=== PATIENT | female | born 1935 | race Caucasian/White ===

== ENCOUNTER 2019-03-03 10:46 | Emergency (ER) | payer MEDICARE, OTHER ==
[~2019-03-03] VITALS: Ht 160 cm; Wt 82.1 kg
--- OUTSIDE RECORDS SUMMARY | 2019-03-03 10:51 | XMS REPORT ---
Author Author RASHEED MYERS [facility] Address Unknown Care Team Providers Care Installment Loan Collector Name Role Phone RASHEED MYERS Unavailable PROBLEMS Unknown Problems ALLERGIES No Known Allergies ENCOUNTERS Encounter Location Date Diagnosis [facility] [address] [facility] [id number] [place], [place] [id number] May, Dental examination Z01.20 IMMUNIZATIONS No Known Immunizations SOCIAL HISTORY Never Assessed REASON FOR VISIT LAURI PLAN OF CARE VITAL SIGNS Blood pressure systolic 159 mmHg 2017-06-16 Blood pressure diastolic 90 mmHg 2017-06-16 MEDICATIONS Unknown Medications RESULTS No Results PROCEDURES Procedure Date Ordered Result Body Site INTRAORL-PERIAPICAL 1 FILM [id number] Jun 16, 2017 BITEWING - SINGLE FILM Jun 16, 2017 INSTRUCTIONS MEDICATIONS ADMINISTERED No Known Medications
--- OUTSIDE RECORDS SUMMARY | 2019-03-03 10:51 | XMS REPORT ---
Author Author RIGO PARIKH Organization [facility] Address [address] [place] [address] Care Team Providers Care Call Center Support Representative Name Role Phone RIGO PARIKH Unavailable PROBLEMS Type Condition ICD9-CM Code UIV97-HV Code Onset Dates Condition Status SNOMED Code Problem Pulmonary fibrosis J84.10 Active 17900741 Problem COPD (chronic obstructive pulmonary disease) J44.9 Active 85468798 Problem Essential (primary) hypertension I10 Active 23024198 Problem Congestive heart failure I50.9 Active 66907544 Problem Rheumatoid arthritis M06.9 Active 27434374 Problem Atrial fibrillation I48.91 Active 43292709 Problem Hyperlipemia E78.5 Active 39722874 ALLERGIES No Information ENCOUNTERS Encounter Location Date Diagnosis [address] [address] December, [address] [address] Oct, COPD (chronic obstructive pulmonary disease) J44.9 [facility] [address] [facility] [id number] [address] Oct, [address] [address] Sep, Essential (primary) hypertension I10 ; Rheumatoid arthritis M06.9 ; Pulmonary fibrosis J84.10 ; Atrial fibrillation I48.91 ; COPD (chronic obstructive pulmonary disease) J44.9 ; Congestive heart failure I50.9 ; Hyperlipemia E78.5 ; Gastro-esophageal reflux disease without esophagitis K21.9 and 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 [address] Sep, Essential (primary) hypertension I10 [facility] [address] [facility] [id number] [place] [id number] May, Dental examination Z01.20 IMMUNIZATIONS No Known Immunizations SOCIAL HISTORY Never Assessed REASON FOR VISIT error PLAN OF CARE VITAL SIGNS MEDICATIONS Unknown Medications RESULTS No Results PROCEDURES No Known procedures INSTRUCTIONS MEDICATIONS ADMINISTERED No Known Medications MEDICAL (GENERAL) HISTORY Type Description Date Medical History Rheumatoid arthritis Medical History Pulmonary fibrosis Medical History Atrial fibrillation Medical History COPD (chronic obstructive pulmonary disease) Medical History Hypertension Medical History Hyperlipemia Medical History Chronic renal failure Medical History Congestive heart failure Medical History Sleep apnea Medical History Takotsubo cardiomyopathy Surgical History shoulder repair Surgical History mastectomy 2009 Hospitalization History CHF Hospitalization History COPD
--- OUTSIDE RECORDS SUMMARY | 2019-03-03 10:52 | XMS REPORT | Continuity of Care Document ---
Author Organization Unknown Address Unknown Allergies There is no data. Medications There is no data. Problems There is no data. Procedures There is no data. Results Test Result Range [facility] - 10/17/18 10:39 GLUCOSE 85 mg/dL 65-99 UREA NITROGEN (BUN) 39 mg/dL 7-25 CREATININE 1.38 mg/dL 0.60-0.88 eGFR NON-AFR. DOMINICAN 35 mL/min/1.73m2 > OR=60 eGFR 41 mL/min/1.73m2 > OR=60 BUN/CREATININE RATIO 28 (calc) 6-22 SODIUM 141 mmol/L 135-146 POTASSIUM 4.3 mmol/L 3.5-5.3 CHLORIDE 99 mmol/L 98-110 CARBON DIOXIDE 33 mmol/L 20-32 CALCIUM 9.7 mg/dL 8.6-10.4 PROTEIN, TOTAL 7.2 g/dL 6.1-8.1 ALBUMIN 3.7 g/dL 3.6-5.1 GLOBULIN 3.5 g/dL (calc) 1.9-3.7 ALBUMIN/GLOBULIN RATIO 1.1 (calc) 1.0-2.5 BILIRUBIN, TOTAL 0.4 mg/dL 0.2-1.2 ALKALINE PHOSPHATASE 49 U/L 33-130 AST 15 U/L 10-35 ALT 10 U/L 6-29 CBC - 10/17/18 10:39 WHITE BLOOD CELL COUNT 5.2 Thousand/uL 3.8-10.8 RED BLOOD CELL COUNT 3.24 Million/uL 3.80-5.10 HEMOGLOBIN 10.0 g/dL 11.7-15.5 HEMATOCRIT 31.0 % 35.0-45.0 MCV 95.7 fL 80.0-100.0 MCH 30.9 pg 27.0-33.0 MCHC 32.3 g/dL 32.0-36.0 RDW 12.5 % 11.0-15.0 PLATELET COUNT 209 Thousand/uL 140-400 MPV 10.2 fL 7.5-12.5 ABSOLUTE NEUTROPHILS 3115 cells/uL 1487-0493 ABSOLUTE LYMPHOCYTES 1373 cells/uL 850-3900 ABSOLUTE MONOCYTES 421 cells/uL 200-950 ABSOLUTE EOSINOPHILS 260 cells/uL 15-500 ABSOLUTE BASOPHILS 31 cells/uL 0-200 NEUTROPHILS 59.9 % NRG LYMPHOCYTES 26.4 % NRG MONOCYTES 8.1 % NRG EOSINOPHILS 5.0 % NRG BASOPHILS 0.6 % NRG LIPID PANEL - 01/16/19 10:45 CHOLESTEROL, TOTAL 160 mg/dL <200 HDL CHOLESTEROL 70 mg/dL >50 TRIGLYCERIDES 78 mg/dL <150 LDL-CHOLESTEROL 74 mg/dL (calc) NRG CHOL/HDLC RATIO 2.3 (calc) <5.0 NON HDL CHOLESTEROL 90 mg/dL (calc) <130 CMP - 01/16/19 10:45 GLUCOSE 95 mg/dL 65-99 UREA NITROGEN (BUN) 34 mg/dL 7-25 CREATININE 1.30 mg/dL 0.60-0.88 eGFR NON-AFR. DOMINICAN 38 mL/min/1.73m2 > OR=60 eGFR 44 mL/min/1.73m2 > OR=60 BUN/CREATININE RATIO 26 (calc) 6-22 SODIUM 137 mmol/L 135-146 POTASSIUM 4.5 mmol/L 3.5-5.3 CHLORIDE 99 mmol/L 98-110 CARBON DIOXIDE 32 mmol/L 20-32 CALCIUM 9.9 mg/dL 8.6-10.4 PROTEIN, TOTAL 6.9 g/dL 6.1-8.1 ALBUMIN 3.5 g/dL 3.6-5.1 GLOBULIN 3.4 g/dL (calc) 1.9-3.7 ALBUMIN/GLOBULIN RATIO 1.0 (calc) 1.0-2.5 BILIRUBIN, TOTAL 0.3 mg/dL 0.2-1.2 ALKALINE PHOSPHATASE 60 U/L 33-130 AST 14 U/L 10-35 ALT 8 U/L 6-29 CBC - 01/16/19 10:45 WHITE BLOOD CELL COUNT 6.5 Thousand/uL 3.8-10.8 RED BLOOD CELL COUNT 3.36 Million/uL 3.80-5.10 HEMOGLOBIN 10.0 g/dL 11.7-15.5 HEMATOCRIT 31.0 % 35.0-45.0 MCV 92.3 fL 80.0-100.0 MCH 29.8 pg 27.0-33.0 MCHC 32.3 g/dL 32.0-36.0 RDW 13.0 % 11.0-15.0 PLATELET COUNT 188 Thousand/uL 140-400 MPV 10.0 fL 7.5-12.5 ABSOLUTE NEUTROPHILS 4362 cells/uL 0815-2410 ABSOLUTE LYMPHOCYTES 1352 cells/uL 850-3900 ABSOLUTE MONOCYTES 514 cells/uL 200-950 ABSOLUTE EOSINOPHILS 241 cells/uL 15-500 ABSOLUTE BASOPHILS 33 cells/uL 0-200 NEUTROPHILS 67.1 % NRG LYMPHOCYTES 20.8 % NRG MONOCYTES 7.9 % NRG EOSINOPHILS 3.7 % NRG BASOPHILS 0.5 % NRG BNP - 01/16/19 10:45 B TYPE NATRIURETIC PEPTIDE (BNP) 344 pg/mL <100 Encounters ACCT No. Visit Date/Time Discharge Status Pt. Type Provider Facility Loc./Unit Complaint [id number] 01/16/2019 10:00:00 01/16/2019 23:59:59 [facility] Outpatient RIGO PARIKH [facility] [id number] 01/16/2019 10:00:00 Document Registration [id number] 10/17/2018 10:15:00 Document Registration
--- NOTE | 2019-03-03 11:18 | ED Respiratory ---
General Chief Complaint: Respiratory Problems Stated Complaint: SOA Source: patient Exam Limitations: no limitations History of Present Illness Date Seen by Provider: Mar 03, 2019 Time Seen by Provider: 11:14 Initial Comments Patient complains of increased dyspnea especially with exertion for the past 3-4 days. She denies chest pain. She denies fever. She has a nonproductive cough. She has a history of pulmonary fibrosis secondary to methotrexate use. Giovanna anne's saturation was 80 percent on her regular 3 L when she walked back to the room. She was placed on a oxygen mask at 4 L and saturations climbed to the lower 90s. Timing/Duration: constant Allergies and Home Medications Allergies Coded Allergies: Sulfa (Sulfonamide Antibiotics) (Unverified Allergy, Unknown, 09/08/06) amoxicillin (Verified Allergy, Unknown, rash, 03/03/19) azithromycin (Verified Allergy, Unknown, rash, 03/03/19) cephalexin (Verified Allergy, Unknown, rash, 03/03/19) clavulanic acid (Verified Allergy, Unknown, rash, 03/03/19) colchicine (Verified Allergy, Unknown, rash, 03/03/19) doxycycline (Verified Adverse Reaction, Unknown, diarrhea, 03/03/19) hydralazine (Verified Adverse Reaction, Unknown, headache, 03/03/19) Uncoded Allergies: CYSTEINE (Allergy, Unknown, itching, 03/03/19) Patient Home Medication List Home Medication List Reviewed: Yes Review of Systems Review of Systems Constitutional: No fever; malaise EENTM: no symptoms reported Respiratory: cough, dyspnea on exertion, short of breath Cardiovascular: no symptoms reported Gastrointestinal: no symptoms reported Musculoskeletal: joint pain Skin: no symptoms reported Hematologic/Lymphatic: No Symptoms Reported Immunological/Allergic: no symptoms reported All Other Systems Reviewed Negative Unless Noted: Yes Past Rhcgxif-Yvdmqi-Yufxho Hx Patient Social History Alcohol Use: Denies Use Physical Exam Vital Signs - First Documented 03/03/19 10:51 Temp 97.8 Pulse 72 Resp 22 B/P (MAP) 167/73 (104) Pulse Ox 90 O2 Delivery Nasal Cannula O2 Flow Rate 4.50 Capillary Refill : Height: '" Weight: lbs. oz. kg; BMI Method: General Appearance: WD/WN, no apparent distress Eyes: Bilateral Eye Normal Inspection HEENT: PERRL/EOMI, pharynx normal Neck: supple Respiratory: decreased breath sounds, crackles, rales Cardiovascular: regular rate, rhythm Gastrointestinal: normal bowel sounds, soft Extremities: normal inspection Neurologic/Psychiatric: alert, normal mood/affect Skin: normal color, warm/dry Focused Exam Lactate Level 03/03/19 11:34: Lactic Acid Level 0.56 Lactic Acid Level Laboratory Tests Test 03/03/19 11:34 Lactic Acid Level 0.56 MMOL/L (0.50-2.00) Progress/Results/Core Measures Suspected Sepsis SIRS Temperature: Pulse: Respiratory Rate: Laboratory Tests 03/03/19 11:03: White Blood Count 9.4 Blood Pressure / Mean: 03/03/19 11:34: Lactic Acid Level 0.56 Laboratory Tests 03/03/19 11:03: Creatinine 1.39H, Platelet Count 186, Total Bilirubin 0.6 Results/Orders Lab Results Laboratory Tests Test 03/03/19 11:03 03/03/19 11:30 03/03/19 11:34 Range/Units White Blood Count 9.4 4.3-11.0 10^3/uL Red Blood Count 3.02 L 4.35-5.85 10^6/uL Hemoglobin 9.1 L 11.5-16.0 G/DL Hematocrit 30 L 35-52 % Mean Corpuscular Volume 100 H 80-99 FL Mean Corpuscular Hemoglobin 30 25-34 PG Mean Corpuscular Hemoglobin Concent 30 L 32-36 G/DL Red Cell Distribution Width 15.1 H 10.0-14.5 % Platelet Count 186 130-400 10^3/uL Mean Platelet Volume 9.4 7.4-10.4 FL Neutrophils (%) (Auto) 82 H 42-75 % Lymphocytes (%) (Auto) 11 L 12-44 % Monocytes (%) (Auto) 7 0-12 % Eosinophils (%) (Auto) 0 0-10 % Basophils (%) (Auto) 0 0-10 % Neutrophils # (Auto) 7.7 1.8-7.8 X 10^3 Lymphocytes # (Auto) 1.0 1.0-4.0 X 10^3 Monocytes # (Auto) 0.6 0.0-1.0 X 10^3 Eosinophils # (Auto) 0.0 0.0-0.3 10^3/uL Basophils # (Auto) 0.0 0.0-0.1 10^3/uL Sodium Level 137 135-145 MMOL/L Potassium Level 5.5 H 3.6-5.0 MMOL/L Chloride Level 96 L 98-107 MMOL/L Carbon Dioxide Level 34 H 21-32 MMOL/L Anion Gap 7 5-14 MMOL/L Blood Urea Nitrogen 37 H 7-18 MG/DL Creatinine 1.39 H 0.60-1.30 MG/DL Estimat Glomerular Filtration Rate 36 BUN/Creatinine Ratio 27 Glucose Level 106 H 70-105 MG/DL Calcium Level 9.6 8.5-10.1 MG/DL Corrected Calcium 10.1 8.5-10.1 MG/DL Magnesium Level 2.2 1.8-2.4 MG/DL Total Bilirubin 0.6 0.1-1.0 MG/DL Aspartate Amino Transf (AST/SGOT) 183 H 5-34 U/L Alanine Aminotransferase (ALT/SGPT) 170 H 0-55 U/L Alkaline Phosphatase 170 H 40-136 U/L Troponin I < 0.30 <0.30 NG/ML Pro-B-Type Natriuretic Peptide 17448.0 H <75.0 PG/ML Total Protein 7.6 6.4-8.2 GM/DL Albumin 3.4 3.2-4.5 GM/DL Blood Gas Puncture Site LT RAD Blood Gas Patient Temperature 97.5 Arterial Blood pH 7.36 L 7.37-7.43 Arterial Blood Partial Pressure CO2 68 H 35-45 MMHG Arterial Blood Partial Pressure O2 136 H 79-93 MMHG Arterial Blood HCO3 38 H 23-27 MMOL/L Arterial Blood Total CO2 40.5 H 21.0-31.0 MMOL/L Arterial Blood Oxygen Saturation 99 94-100 % Arterial Blood Base Excess 10.4 H -2.5-2.5 MMOL/L Vitor Test YES-POS Blood Gas Ventilator Setting NO Blood Gas Inspired Oxygen 4 OXYMASK Lactic Acid Level 0.56 0.50-2.00 MMOL/L My Orders Orders - MICHAEL CARRASQUILLO MD Cbc With Automated Diff (03/03/19 11:08) Magnesium (03/03/19 11:08) Chest 1 View Ap/Pa Only (03/03/19 11:08) Ekg Tracing (03/03/19 11:08) Comprehensive Metabolic Panel (03/03/19 11:08) O2 (03/03/19 11:08) Monitor-Rhythm Ecg Trace Only (03/03/19 11:08) Ed Iv/Invasive Line Start (03/03/19 11:08) Troponin I (03/03/19 11:08) Probnp Fs (03/03/19 11:08) Lactic Acid Analyzer (03/03/19 11:24) Arterial Blood Gas (03/03/19 11:36) Blood Culture (03/03/19 12:04) Levofloxacin 750 Mg/150 Ml Iv (Levaquin (03/03/19 12:15) Furosemide Injection (Lasix Injection) (03/03/19 12:15) Nitroglycerin Ointment (Nitrobid Ointme (03/03/19 12:15) Methylprednisolone Sod Succ (Solu-Medrol (03/03/19 12:15) Blood Culture (03/03/19 12:46) Medications Given in ED Current Medications Medications Dose Ordered Sig/Mitul Route Start Time Stop Time Status Last Admin Dose Admin Furosemide 40 mg ONCE ONCE IVP 03/03/19 12:15 03/03/19 12:16 DC 03/03/19 12:44 40 MG Levofloxacin/ Dextrose 150 ml @ 100 mls/hr ONCE ONCE IV 03/03/19 12:15 03/03/19 13:44 DC 03/03/19 12:45 100 MLS/HR Methylprednisolone Sodium Succinate 62.5 mg ONCE ONCE IVP 03/03/19 12:15 03/03/19 12:16 DC 03/03/19 12:44 62.5 MG Nitroglycerin 1 inch ONCE ONCE TOP 03/03/19 12:15 03/03/19 12:16 DC 03/03/19 12:44 1 INCH Vital Signs/I&O 03/03/19 03/03/19 10:51 10:51 Temp 97.8 Pulse 72 Resp 22 B/P (MAP) 167/73 (104) Pulse Ox 90 90 O2 Delivery Nasal Cannula O2 Flow Rate 4.50 Capillary Refill : ECG Initial ECG Impression Date: Mar 03, 2019 Initial ECG Impression Time: 11:20 Initial ECG Rate: 62 Initial ECG Rhythm: Normal Sinus Initial ECG Intervals: Normal Initial ECG Impression: Nonspecific Changes Departure Impression Primary Impression: Pneumonia Additional Impressions: COPD (chronic obstructive pulmonary disease) CHF exacerbation Disposition: 02 XFER SHT-TRM HOSP Condition: Stable Transfer Time Spoke to Accepting y: 12:41 Transfer Progress Notes [facility] transfer line was contacted. Pertinent labs were faxed. Dr. David Madden accepted transfer at 1400 hours patient remained stable while at rest and on O2. Transfer Time: 14:10 Transfer Facility: [facility] Method of Transfer: EMS Departure-Patient Inst. Referrals: RIGO PARIKH MD (PCP/Family) Primary Care Physician MICHAEL CARRASQUILLO MD Mar 03, 2019 11:18
[2019-03-03 11:21] LABS: BASOPHILS % (AUTO) 0 % (0-10); EOSINOPHILS % (AUTO) 0 % (0-10); HEMATOCRIT 30 % (35-52); HEMOGLOBIN 9.1 G/DL (11.5-16.0); LYMPHOCYTES % (AUTO) 11 % (12-44); MEAN CORPUSCULAR HEMOGLOBIN 30 PG (25-34); MEAN CORPUSCULAR HGB CONC 30 G/DL (32-36); MEAN CORPUSCULAR VOLUME 100 FL (80-99); MEAN PLATELET VOLUME 9.4 FL (7.4-10.4); MONOCYTES # (AUTO) 0.6 X 10^3 (0.0-1.0); MONOCYTES % (AUTO) 7 % (0-12); NEUTROPHILS # (AUTO) 7.7 X 10^3 (1.8-7.8); NEUTROPHILS % (AUTO) 82 % (42-75); PLATELET COUNT 186 10^3/uL (130-400); RED CELL DISTRIBUTION WIDTH 15.1 % (10.0-14.5); WHITE BLOOD COUNT 9.4 10^3/uL (4.3-11.0)
[2019-03-03 11:41] LABS: POTASSIUM 5.5 MMOL/L (3.6-5.0)
[2019-03-03 11:41] LABS: ABG BASE EXCESS 10.4 MMOL/L (-2.5-2.5); ABG OXYGEN SATURATION 99 % (94-100); ABG PCO2 68 MMHG (35-45); ABG PH 7.36 (7.37-7.43); ABG PO2 136 MMHG (79-93); ABG TCO2 40.5 MMOL/L (21.0-31.0); ALLENS TEST YES-POS; INSPIRED O2 4 OXYMASK; PATIENT TEMP 97.5; VENTILATOR NO
[2019-03-03 11:42] LABS: ALBUMIN 3.4 GM/DL (3.2-4.5); BILIRUBIN,TOTAL 0.6 MG/DL (0.1-1.0); CALCIUM 9.6 MG/DL (8.5-10.1); CREATININE SERUM 1.39 MG/DL (0.60-1.30); MAGNESIUM 2.2 MG/DL (1.8-2.4); TOTAL PROTEIN 7.6 GM/DL (6.4-8.2)
--- NOTE | 2019-03-03 12:00 | Diagnostic Imaging Report ---
PATIENT HISTORY: Shortness of air. History of breast cancer and lumpectomy. TECHNIQUE: Frontal view of the chest. COMPARISON: None. FINDINGS: There is cardiomegaly with a biologics specialist device noted. There is extensive perihilar opacity bilaterally, which extends into the right upper lobe. There are patchy airspace opacities in the right lung base. There is aortic atherosclerosis. Postsurgical changes are seen at the right shoulder. IMPRESSION: 1. Extensive bilateral perihilar opacities extending into the right upper lobe, may be due to pneumonia, or possibly edema. There are patchy airspace opacities in the right lung base as well. Given the history of cancer, recommend followup to resolution or nonemergent CT to exclude underlying neoplasm. Dictated by: Dictated on workstation # [id number]
[2019-03-03] MEDS ORDERED: methylPREDNISolone 125 MG (Solu-MEDROL) VIAL IVP ONE (12:15)
[2019-03-03] MEDS ORDERED: FUROSEMIDE 40 MG/4 ML INJ (LASIX) IVP ONE (12:15)
[2019-03-03] MEDS ORDERED: LEVOFLOXACIN 750 MG/150 ML IV 150 ML IV ONE (12:15)
[2019-03-03] MEDS ORDERED: NITROGLYCERIN 2% OINT 1 GM UNIT DOSE PACKET TOP ONE (12:15)
--- NOTE | 2019-03-03 14:02 | NUR ---
Received call from [facility] at [facility] with the name of accepting Dr, Dr David Madden. States he will call back once a bed is assigned.
[2019-03-03 15:05] VITALS: BP 167/70
--- NOTE | 2019-03-03 16:15 | NUR ---
Patient transferred at this time to [facility] at this time via [facility].
== END 2019-03-03 16:10 | disposition short-term general hospital (02) ==
LOC: EDUNIT# 10:46 → ER FS 10:48
DX: J18.9 Pneumonia, unspecified organism (principal); J44.9 Chronic obstructive pulmonary disease, unspecified; I50.9 Heart failure, unspecified; Z99.81 Dependence on supplemental oxygen; Z88.2 Allergy status to sulfonamides; Z88.1 Allergy status to other antibiotic agents; Z88.8 Allergy status to other drugs, medicaments and biological substances
CPT/HCPCS: 36415; 71045; 80053; 82805; 83605; 83735; 83880; 84484; 85025; 87040; 93005; 93041; 96365; 96366; 96375; 99291

== ENCOUNTER 2019-07-22 06:04 | Emergency (ER) | payer MEDICARE, OTHER ==
[~2019-07-22] VITALS: Ht 160 cm; Wt 83.4 kg
[~2019-07-22 06:04] MED LIST: ACET-2267 PO; ALBU90AE IH; ALLO300T2 PO; ALLO300T80 PO; APIX5TAB PO; BENZ100C18 PO; BRIM5DRO OP; BRIM5DRO OU; CALC1TAB29 PO; CALCIUM CARBONATE PO; CARV6.25 PO; CARV6.252 PO; CEFD300C3 PO; CLON0.1T PO; DOXY100C2 PO; FLUT12AE4 IH; FURO-125 PO; FURO20TA4 PO; HYDR-3923 PO; HYDR50TA3 PO; IPRA3AMP31 NEB; LATA7.5D OP; LATA7.5D OU; LISI40TA PO; LORA10TA7 PO; LORA10TA76 PO; MELA5TAB14 PO; MELA5TAB21 PO; MULT-593 PO; OMG1KC PO; PRAV20TA PO; PRED10TA22 PO; PROM5SYR PO; TRAZ-222 PO
[2019-07-22] MEDS ORDERED: RT-ALBUTEROL/IPRATROPIUM 3 ML (DUONEB) VIAL INH ONE (06:30)
--- NOTE | 2019-07-22 06:33 | ED Respiratory ---
General Chief Complaint: Respiratory Problems Source: patient Exam Limitations: no limitations History of Present Illness Date Seen by Provider: Jul 22, 2019 Time Seen by Provider: 06:16 Initial Comments Patient resents to ER by EMS from home with chief complaint of continued loose cough shortness of breath weakness. She was seen by this provider approximately one week ago and was admitted for hypoxia acute on chronic respiratory failure secondary to methotrexate lung injury and pneumonia. She was discharged on Omnicef, a steroid taper which she is still on and follow-up appointments tomorrow at with pulmonology. She asked EMS to take her directly to emergency room because she did not want to miss her outpatient appointments and testing. She elected not to do pulmonary rehabilitation because she said she did not want to miss the outpatient testing she had scheduled by her flight controls engineer at . She denies any fever. She does have a productive cough. She has not used her breathing treatments today. EMS gave her one breathing treatment on the way over which she said did help. She wears oxygen at 2 L by nasal cannula at all times. EMS reports her oxygen sats were about 94% on 2 L when they arrived and went about 97% after breathing treatment. She has a history of heart failure and did receive IV fluids in the hospital. She is on Lasix. She's also been on a flu id restriction due to hyponatremia and fluid overload. She says she has not been urinating as much and thinks she's gained 2-4 pounds over the past week. She says she has not weighed herself today however. Echocardiogram by Dr. Bradford from 07/16/19. Wall thickness and cavity size mildly increased. Systolic function normal with an EF 55-65%. Grade 2 diastolic dysfunction. Thickened, sclerotic aortic valve. Severe tricuspid regurgitation. History of paroxysmal atrial fibrillation on oral anticoagulation. Rheumatoid arthritis, chronic anemia, hyponatremia, COPD, methotrexate toxicity of the lungs. Allergies and Home Medications Allergies Coded Allergies: Sulfa (Sulfonamide Antibiotics) (Unverified Allergy, Unknown, 09/08/06) amoxicillin (Verified Allergy, Unknown, rash, 03/03/19) azithromycin (Verified Allergy, Unknown, rash, 03/03/19) cephalexin (Verified Allergy, Unknown, rash, pt received Cefepime w/o issue, 07/18/19) clavulanic acid (Verified Allergy, Unknown, rash, 03/03/19) colchicine (Verified Allergy, Unknown, rash, 03/03/19) doxycycline (Verified Adverse Reaction, Unknown, diarrhea, 03/03/19) hydralazine (Verified Adverse Reaction, Unknown, headache, 03/03/19) Uncoded Allergies: CYSTEINE (Allergy, Unknown, itching, 03/03/19) Home Medications Acetaminophen 500 Mg Tablet, 1,000 MG PO Q6H PRN for PAIN-MILD (1-4), (Reported) Albuterol Sulfate 90 Mcg Aer.pow.ba, 2 PUFF IH Q6H, (Reported) Allopurinol 300 Mg Tablet, 150 MG PO HS, (Reported) TAKES 1/2 OF A 300MG TAB TO EQUAL 150MG Apixaban 5 Mg Tablet, 5 MG PO BID, (Reported) Benzonatate 100 Mg Capsule, 200 MG PO TID Prescribed by: BILLY SOL on 07/18/19 0944 Brimonidine Tartrate/Timolol 5 Ml Drops, 1 DROP OU BID, (Reported) Calcium Carbonate/Vitamin D3 1 Each Tablet, 1 EACH PO DAILY, (Reported) Carvedilol 6.25 Mg Tablet, 6.25 MG PO BID, (Reported) Cefdinir 300 Mg Capsule, 300 MG PO BID Prescribed by: BILLY SOL on 07/18/19 0944 Fluticasone/Salmeterol 12 Gm Hfa.aer.ad, 2 PUFF IH BID@08,20 Prescribed by: BILLY SOL on 07/18/19 0944 Furosemide 20 Mg Tablet, 20 MG PO DAILY, (Reported) Hydralazine HCl 25 Mg Tablet, 25 MG PO BID, (Reported) Ipratropium/Albuterol Sulfate 3 Ml Ampul.neb, 3 ML NEB Q8H, (Reported) Latanoprost/Pf 7.5 Ml Drops, 1 DROP OU HS, (Reported) ONE DROP BOTH EYES Lisinopril 40 Mg Tablet, 40 MG PO 1800, (Reported) Loratadine 10 Mg Tablet, 10 MG PO DAILY, (Reported) Melatonin 5 Mg Tab.ir.er, 10 MG PO HS, (Reported) TAKES 2 (5MG) TABS Multivitamin with Minerals 1 Each Tablet, 1 EACH PO DAILY, (Reported) Barnes 3 Polyunsat Fatty Acids 1,000 Mg Cap, 1,000 MG PO DAILY, (Reported) Pravastatin Sodium 20 Mg Tablet, 20 MG PO HS, (Reported) Prednisone 10 Mg Tab.ds.pk, 10 MG PO DAILY Take 4 tabs(60mg)daily,decrease by 1 tab(10MG)daily. Prescribed by: BILLY SOL on 07/18/19 0944 Promethazine HCl/Codeine 5 Ml Syrup, 5 ML PO Q6H PRN for COUGH, (Reported) PICKED UP 120ML ON 07-12-2019 Trazodone HCl 50 Mg Tablet, 25 MG PO HS PRN for INSOMNIA, (Reported) TAKES 1/2 OF A 50MG TAB TO EQUAL 25MG Patient Home Medication List Home Medication List Reviewed: Yes Review of Systems Review of Systems Constitutional: No chills, No diaphoresis, No fever; malaise, weakness EENTM: No hearing loss, No blurred vision Respiratory: see HPI, cough, dyspnea on exertion, phlegm, short of breath, wheezing Cardiovascular: No chest pain; edema (mild) Gastrointestinal: No abdominal pain, No constipation, No diarrhea Genitourinary: No discharge, No dysuria; incontinence (stress) Musculoskeletal: No back pain, No joint pain Skin: No pruritus, No rash Psychiatric/Neurological: Denies Headache, Denies Numbness, Denies Paresthesia All Other Systems Reviewed Negative Unless Noted: Yes Past Gaebhfe-Ijvatu-Arwcgn Hx Patient Social History Alcohol Use: Denies Use Recreational Drug Use: No Smoking Status: Never a Smoker 2nd Hand Smoke Exposure: No Recent Foreign Travel: Yes Recent Hopitalizations: No Immunizations Up To Date Date of Influenza Vaccine: May 22, 2019 Seasonal Allergies Seasonal Allergies: No Past Medical History Surgeries: Yes Breast, Orthopedic Respiratory: Yes COPD Cardiac: Yes Hypertension, Irregular Heartbeat Neurological: Yes (brain bleed) Genitourinary: No Renal Failure Gastrointestinal: No Rheumatoid Arthritis Endocrine: No HEENT: No Cancer: No Psychosocial: No Integumentary: No Physical Exam Vital Signs - First Documented 07/22/19 06:15 Temp 36.8 Pulse 77 Resp 24 B/P (MAP) 142/59 (86) Pulse Ox 93 O2 Delivery Nasal Cannula O2 Flow Rate 2.00 FiO2 93 Capillary Refill : Height: 5'3.00" Weight: 181lbs. oz. 82.199490wr; 31.32 BMI Method:Stated General Appearance: WD/WN, mild distress Eyes: Bilateral Eye Normal Inspection, Bilateral Eye PERRL, Bilateral Eye EOMI HEENT: PERRL/EOMI, normal ENT inspection, pharynx normal Neck: supple, normal inspection Respiratory: no respiratory distress (94% on baseline O2), no accessory muscle use ( of 2 L), crackles (mild bilateral left worse than right bases), wheezing (mild, expiratory) Cardiovascular: normal peripheral pulses, regular rate, rhythm, other (trace pedal edema bilateral lower extremities) Gastrointestinal: non tender, soft Extremities: non-tender, normal inspection, no calf tenderness, normal capillary refill Neurologic/Psychiatric: alert, normal mood/affect, oriented x 3 Skin: normal color, warm/dry Progress/Results/Core Measures Suspected Sepsis SIRS Temperature: Pulse: Respiratory Rate: Laboratory Tests 07/22/19 06:25: White Blood Count 11.1H Blood Pressure / Mean: Laboratory Tests 07/22/19 06:25: Creatinine 1.12, Platelet Count 255, Total Bilirubin 0.2 Results/Orders Lab Results Laboratory Tests Test 07/22/19 06:25 07/22/19 06:46 07/22/19 07:30 Range/Units White Blood Count 11.1 H 4.3-11.0 10^3/uL Red Blood Count 2.57 L 4.35-5.85 10^6/uL Hemoglobin 8.3 L 11.5-16.0 G/DL Hematocrit 27 L 35-52 % Mean Corpuscular Volume 107 H 80-99 FL Mean Corpuscular Hemoglobin 32 25-34 PG Mean Corpuscular Hemoglobin Concent 30 L 32-36 G/DL Red Cell Distribution Width 15.8 H 10.0-14.5 % Platelet Count 255 130-400 10^3/uL Mean Platelet Volume 8.8 7.4-10.4 FL Neutrophils (%) (Auto) 83 H 42-75 % Lymphocytes (%) (Auto) 7 L 12-44 % Monocytes (%) (Auto) 8 0-12 % Eosinophils (%) (Auto) 1 0-10 % Basophils (%) (Auto) 0 0-10 % Neutrophils # (Auto) 9.2 H 1.8-7.8 X 10^3 Lymphocytes # (Auto) 0.8 L 1.0-4.0 X 10^3 Monocytes # (Auto) 0.9 0.0-1.0 X 10^3 Eosinophils # (Auto) 0.1 0.0-0.3 10^3/uL Basophils # (Auto) 0.0 0.0-0.1 10^3/uL Neutrophils % (Manual) 84 % Lymphocytes % (Manual) 11 % Monocytes % (Manual) 3 % Reactive Lymphocytes 2 % Macrocytosis MODERATE Sodium Level 135 135-145 MMOL/L Potassium Level 5.1 H 3.6-5.0 MMOL/L Chloride Level 95 L 98-107 MMOL/L Carbon Dioxide Level 34 H 21-32 MMOL/L Anion Gap 6 5-14 MMOL/L Blood Urea Nitrogen 51 H 7-18 MG/DL Creatinine 1.12 0.60-1.30 MG/DL Estimat Glomerular Filtration Rate 46 BUN/Creatinine Ratio 46 Glucose Level 100 70-105 MG/DL Calcium Level 9.1 8.5-10.1 MG/DL Corrected Calcium 9.8 8.5-10.1 MG/DL Total Bilirubin 0.2 0.1-1.0 MG/DL Aspartate Amino Transf (AST/SGOT) 21 5-34 U/L Alanine Aminotransferase (ALT/SGPT) 20 0-55 U/L Alkaline Phosphatase 82 40-136 U/L Troponin I < 0.30 <0.30 NG/ML C-Reactive Protein 2.28 H <0.50 MG/DL Pro-B-Type Natriuretic Peptide 5980.0 H <75.0 PG/ML Total Protein 6.1 L 6.4-8.2 GM/DL Albumin 3.1 L 3.2-4.5 GM/DL Blood Gas Puncture Site RT WRIST Blood Gas Patient Temperature 36.8 Arterial Blood pH 7.35 L 7.37-7.43 Arterial Blood Partial Pressure CO2 77 *H 35-45 MMHG Arterial Blood Partial Pressure O2 315 H 79-93 MMHG Arterial Blood HCO3 43 *H 23-27 MMOL/L Arterial Blood Total CO2 44.9 H 21.0-31.0 MMOL/L Arterial Blood Oxygen Saturation 100 94-100 % Arterial Blood Base Excess 13.6 H -2.5-2.5 MMOL/L Vitor Test NEGATIVE Blood Gas Ventilator Setting NO Blood Gas Inspired Oxygen 2 Urine Color YELLOW Urine Clarity CLEAR Urine pH 6.0 5-9 Urine Specific [place] 1.010 L 1.016-1.022 Urine Protein TRACE NEGATIVE Urine Glucose (UA) NEGATIVE NEGATIVE Urine Ketones NEGATIVE NEGATIVE Urine Nitrite NEGATIVE NEGATIVE Urine Bilirubin NEGATIVE NEGATIVE Urine Urobilinogen 0.2 < = 1.0 MG/DL Urine Leukocyte Esterase NEGATIVE NEGATIVE Urine RBC (Auto) NEGATIVE NEGATIVE Urine RBC NONE /HPF Urine WBC NONE /HPF Urine Crystals PRESENT H /LPF Urine Amorphous Sediment FEW RADHA URATES H /LPF Urine Bacteria NONE /HPF Urine Casts NONE /LPF Urine Mucus NEGATIVE /LPF Urine Culture Indicated NO My Orders Orders - LORETTA LOWE Ed Iv/Invasive Line Start (07/22/19 06:22) Cbc With Automated Diff (07/22/19 06:22) Comprehensive Metabolic Panel (07/22/19 06:22) Arterial Blood Gas (07/22/19 06:22) Crp Fs (07/22/19 06:22) Probnp Fs (07/22/19 06:22) Troponin I Fs (07/22/19 06:22) Ekg Tracing (07/22/19 06:22) Continuous Ekg Monitoring (07/22/19 06:22) O2 (07/22/19 06:22) Chest 1 View Ap/Pa Only (07/22/19 06:22) Albuterol/Ipra Inhalation Soln (Duoneb I (07/22/19 06:30) Svn Small Volume Nebulizer (07/22/19 06:22) Ua Culture If Indicated (07/22/19 06:22) Manual Differential (07/22/19 06:25) Straight Cath For Spec.-Adult (07/22/19 07:29) Cpap (Set Up) (07/22/19 08:50) Methylprednisolone Sod Succ (Solu-Medrol (07/22/19 09:00) Furosemide Injection (Lasix Injection) (07/22/19 09:00) Medications Given in ED Current Medications Medications Dose Ordered Sig/Mitul Route Start Time Stop Time Status Last Admin Dose Admin Albuterol/ Ipratropium 3 ml ONCE ONCE INH 07/22/19 06:30 07/22/19 06:31 DC 07/22/19 06:40 3 ML Furosemide 40 mg ONCE ONCE IVP 07/22/19 09:00 07/22/19 09:01 DC 07/22/19 08:57 40 MG Methylprednisolone Sodium Succinate 125 mg ONCE ONCE IVP 07/22/19 09:00 07/22/19 09:01 DC 07/22/19 08:57 125 MG Vital Signs/I&O 07/22/19 07/22/19 07/22/19 07/22/19 06:15 06:15 06:48 08:53 Temp 36.8 Pulse 77 Resp 24 B/P (MAP) 142/59 (86) Pulse Ox 93 93 100 O2 Delivery Nasal Cannula Nasal Cannula Nasal Cannula O2 Flow Rate 2.00 2.00 40.00 FiO2 93 07/22/19 10:50 Temp 36.9 Pulse 60 Resp 21 B/P (MAP) 144/72 (86) Pulse Ox 100 O2 Delivery NIV CPAP O2 Flow Rate 4.00 Capillary Refill : Progress Note #1: Time: 06:37 Progress Note We discussed checking a BNP to make sure she was not returning to fluid overload and giving her another breathing treatments she still has some wheezing despite the DuoNeb given by EMS. She has crackles which could be from fluid overload versus just continuing pneumonia. Her SaO2 is okay. We'll check a ABG some labs BNP and CRP. She still on the prednisone and Omnicef. We have discussed that she may benefit from pulmonary rehabilitation to help her get her strength back and she was adamant that she did not want to do this because she wanted to meet her outpatient testing. We explained to her that outpatient testing for her lungs well important it will be released relevant if she is in acute distress. She is asked to be transferred to the emergency room at . We explained to her that we would provide adequate workup initially to find out what the best disposition for her would be and make recommendations based off of our lab, x-ray and reexamination after breathing treatment. She explains that her chief complaint is just feeling weak and having an ongoing cough. She could not give a reason why she does not want to pulmonary rehabilitation other that she doesn't want miss the tests that were set up for her tomorrow. She mentioned her urinary incontinence so we will check a urinalysis looking for infection. She is on beta blockers so she is unlikely to be tachycardic. Progress Note #2: Time: 08:39 Progress Note The patient is not willing to go to [facility]. She says she would prefer to go home. She has difficulty staying awake through our conversation likely owing to her CO2 narcosis. Based on her high normal potassium and BUNs of 5000 as well as a loose cough I would suspect that she's not using her Lasix or it is being effective. The patient relates that she has not been fastidious with wearing her CPAP for last couple days because she says she has not been comfortable with that so she has been using her oxygen at night. Spoke with her daughter Chelo and discussed her concerns with the patient's CO2 narcosis and that she would not likely do well if she went home despite this being the patient's wishes. After the daughter spoke with the patient and they've agreed she should go to the hospital but they would prefer her to go to [facility] where her flight controls engineer Dr. Titus is. Solu-Medrol 125 mg IV and Lasix 40 mg IV. Progress Note #3: Time: 09:07 Progress Note Patient is feeling comfortable on 7 cm water pressure CPAP. We will observe for short while. ECG Initial ECG Impression Date: Jul 22, 2019 Initial ECG Impression Time: 06:31 Initial ECG Rate: 80 Initial ECG Rhythm: Normal Sinus Initial ECG Intervals: Normal Initial ECG Impression: Normal, Nonspecific Changes Initial ECG Comparisson: Unchanged Comment Sinus rhythm without clinically relevant ST elevation or depression. Diagnostic Imaging Diagonstic Imaging: Xray Plain Films/CT/US/NM/MRI: chest (1v) Comments Unchanged appearance from 07/17/19. NAME: SHIRLEY HENNING Susi MED REC#: [id number] PT STATUS: REG ER : 1935 PHYSICIAN: LORETTA LOWE MD ADMIT DATE: 07/22/19/ER FS Draft POSDate of Exam:07/22/19 CHEST 1 VIEW AP/PA ONLY Impression: Cough. Study compared with exam most recently 07/17/2019 also 03/03/2019. Findings: Cardiomegaly and an abnormal mediastinal contour is unchanged, 5 lobe coarse interstitial opacities unchanged. No effusion or pneumothorax. Impression: No change from previous exams with likely chronic underlying interstitial disease. There is cardiomegaly and prominence of the mediastinal contours all unchanged. Patient underwent chest CT 07/15 which demonstrates some nonspecific mediastinal lymphadenopathy. Dictated on workstation # [id number] Dict: 07/22/19 0653 Trans: 07/22/19 0724 [facility] [id number] Interpreted by: MONISHA SEVERINO Electronically signed by: Reviewed: Reviewed by Me Departure Impression Primary Impression: COPD exacerbation Additional Impression: Acute exacerbation of CHF (congestive heart failure) Qualified Codes: I50.33 - Acute on chronic diastolic (congestive) heart failure Disposition: XFER SHT-TRM HOSP Condition: Stable Transfer Transfer Reason: Patient preference (Pt's Bark Skinner is at [facility].) Time Spoke to Accepting Phy: 09:53 Transfer Progress Notes 0845: Called [facility] triage nurse and gave report. They will call back with physician. Accepted to Dr Juliette Giraldo, [facility]. Transfer Time: 10:50 Transfer Facility: [facility], [place], [place] Method of Transfer: EMS ([place]) Departure-Patient Inst. Referrals: RIGO PARIKH MD (PCP/Family) Primary Care Physician LORETTA LOWE Jul 22, 2019 06:33 POS
[2019-07-22 06:59] LABS: ABG PCO2 77 MMHG (35-45); ABG PH 7.35 (7.37-7.43)
[2019-07-22 07:00] LABS: ABG BASE EXCESS 13.6 MMOL/L (-2.5-2.5); ABG OXYGEN SATURATION 100 % (94-100); ABG PO2 315 MMHG (79-93); ABG TCO2 44.9 MMOL/L (21.0-31.0); ALLENS TEST NEGATIVE; INSPIRED O2 2
[2019-07-22 07:01] LABS: HEMATOCRIT 27 % (35-52); HEMOGLOBIN 8.3 G/DL (11.5-16.0); MEAN CORPUSCULAR HEMOGLOBIN 32 PG (25-34); MEAN CORPUSCULAR HGB CONC 30 G/DL (32-36); MEAN CORPUSCULAR VOLUME 107 FL (80-99); WHITE BLOOD COUNT 11.1 10^3/uL (4.3-11.0)
[2019-07-22 07:01] LABS: PATIENT TEMP 36.8; VENTILATOR NO
[2019-07-22 07:02] LABS: BASOPHILS % (AUTO) 0 % (0-10); EOSINOPHILS # (AUTO) 0.1 10^3/uL (0.0-0.3); EOSINOPHILS % (AUTO) 1 % (0-10); LYMPHOCYTES # (AUTO) 0.8 X 10^3 (1.0-4.0); LYMPHOCYTES % (AUTO) 7 % (12-44); MEAN PLATELET VOLUME 8.8 FL (7.4-10.4); MONOCYTES # (AUTO) 0.9 X 10^3 (0.0-1.0); MONOCYTES % (AUTO) 8 % (0-12); NEUTROPHILS # (AUTO) 9.2 X 10^3 (1.8-7.8); NEUTROPHILS % (AUTO) 83 % (42-75); PLATELET COUNT 255 10^3/uL (130-400); RED CELL DISTRIBUTION WIDTH 15.8 % (10.0-14.5)
[2019-07-22 07:09] LABS: LYMPHOCYTES % (MANUAL) 11 %; MONOCYTES % (MANUAL) 3 %; NEUTROPHILS % (MANUAL) 84 %; REACTIVE LYMPHOCYTES 2 %
--- NOTE | 2019-07-22 07:25 | Diagnostic Imaging Report ---
Impression: Cough. Study compared with exam most recently 07/17/2019 also 03/03/2019. Findings: Cardiomegaly and an abnormal mediastinal contour is unchanged, 5 lobe coarse interstitial opacities unchanged. No effusion or pneumothorax. Impression: No change from previous exams with likely chronic underlying interstitial disease. There is cardiomegaly and prominence of the mediastinal contours all unchanged. Patient underwent chest CT 07/15 which demonstrates some nonspecific mediastinal lymphadenopathy. Dictated by: Dictated on workstation # [id number]
[2019-07-22 07:30] LABS: ALANINE AMINOTRANSFERASE 20 U/L (0-55); ALBUMIN 3.1 GM/DL (3.2-4.5); ALKALINE PHOSPHATASE 82 U/L (40-136); BILIRUBIN,TOTAL 0.2 MG/DL (0.1-1.0); BUN/CREATININE RATIO 46; CALCIUM 9.1 MG/DL (8.5-10.1); CARBON DIOXIDE 34 MMOL/L (21-32); CHLORIDE 95 MMOL/L (98-107); CREATININE SERUM 1.12 MG/DL (0.60-1.30); GFR ESTIMATED 46; GLUCOSE 100 MG/DL (70-105); POTASSIUM 5.1 MMOL/L (3.6-5.0); SODIUM 135 MMOL/L (135-145); TOTAL PROTEIN 6.1 GM/DL (6.4-8.2)
[2019-07-22 07:52] LABS: BILIRUBIN,URINE NEGATIVE (NEGATIVE); CLARITY,URINE CLEAR; COLOR,URINE YELLOW; GLUCOSE, URINE (UA) NEGATIVE (NEGATIVE); KETONES,URINE NEGATIVE (NEGATIVE); LEUKOCYTE ESTERASE ,URINE NEGATIVE (NEGATIVE); NITRITE,URINE NEGATIVE (NEGATIVE); PROTEIN,URINE TRACE (NEGATIVE)
[2019-07-22 07:53] LABS: AMORPHOUS SEDIMENT,UR FEW AMOR URATES /LPF
[2019-07-22] MEDS ORDERED: methylPREDNISolone 125 MG (Solu-MEDROL) VIAL IVP ONE (09:00)
[2019-07-22] MEDS ORDERED: FUROSEMIDE 40 MG/4 ML INJ (LASIX) IVP ONE (09:00)
[2019-07-22 10:50] VITALS: BP 144/72
--- OUTSIDE RECORDS SUMMARY | 2019-08-16 06:06 | XMS REPORT | Continuity of Care Document ---
Author Organization Unknown Address Unknown Phone Unavailable Allergies Active Description Code Type Severity Reaction Onset Reported/Identified Relationship to Patient Clinical Status Yes Sulfa (Sulfonamide Antibiotics) [id number] Drug Allergy Unknown N/A 007 Yes amoxicillin [id number] Drug Aller gy Unknown rash 03/03/2019 Yes azithromycin [id number] Drug Allergy Unknown rash 03/03/2019 Yes cephalexin [id number] Drug Allerg y Unknown rash 03/03/2019 Yes clavulanic acid [id number] D rug Allergy Unknown rash 03/03/2019 Yes colchicine [id number] Drug Allerg y Unknown rash 03/03/2019 Yes CYSTEINE CYSTEINE Un known itching 03/03/2019 Yes doxycycline [id number] Drug Aller gy Unknown diarrhea 03/03/2019 Yes hydralazine [id number] Drug Aller gy Unknown headache 03/03/2019 Yes cephalexin [id number] Drug Allerg y Unknown rash, pt receiv 07/18/2019 Medications There is no data. Problems Date Dx Coded Attending Type Code Diagnosis Diagnosed By 03/03/2019 MICHAEL CARRASQUILLO MD, Ot I50. 9 HEART FAILURE, UNSPECIFIED 03/03/2019 MICHAEL CARRASQUILLO MD, Ot J18. 9 PNEUMONIA, UNSPECIFIED ORGANISM 03/03/2019 MICHAEL CARRASQUILLO MD, Ot J44. 9 CHRONIC OBSTRUCTIVE PULMONARY DISEASE, U 03/03/2019 MICHAEL CARRASQUILLO MD Ot R06. 00 DYSPNEA, UNSPECIFIED 03/03/2019 MICHAEL CARRASQUILLO MD, Ot Z88. 1 ALLERGY STATUS TO OTHER ANTIBIOTIC AGENT 03/03/2019 MICHAEL CARRASQUILLO MD, Ot Z88. 2 ALLERGY STATUS TO SULFONAMIDES STATUS 03/03/2019 MICHAEL CARRASQUILLO MD, Ot Z88. 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 9 HEART FAILURE, UNSPECIFIED 03/08/2019 NEIDA MD, MICHAEL A Ot J18. 9 PNEUMONIA, UNSPECIFIED ORGANISM 03/08/2019 MICHAEL CARRASQUILLO MD Ot J44. 9 CHRONIC OBSTRUCTIVE PULMONARY DISEASE, U 03/08/2019 MICHAEL CARRASQUILLO MD Ot R06. 00 DYSPNEA, UNSPECIFIED 03/08/2019 MICHAEL CARRASQUILLO MD, Ot Z88. 1 ALLERGY STATUS TO OTHER ANTIBIOTIC AGENT 03/08/2019 MICHAEL CARRASQUILLO MD Ot Z88. 2 ALLERGY STATUS TO SULFONAMIDES STATUS 03/08/2019 MICHAEL CARRASQUILLO MD Ot Z88. 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 07/18/2019 SWETA MANCILLA BILLY Ot D64.9 ANEMIA, UNSPECIFIED 07/18/2019 SWEAT MANCILLA BILLY Ot E78.5 HYPERLIPIDEMIA, UNSPECIFIED 07/18/2019 SWETA MANCILLA BILLY Ot E87.1 HYPO-OSMOLALITY AND HYPONATREMIA 07/18/2019 SWETA MANCILLA BILLY Ot F32.9 MAJOR DEPRESSIVE DISORDER, SINGLE EPISOD 07/18/2019 SWETA MANCILLA BILLY Ot I11.0 HYPERTENSIVE HEART DISEASE WITH HEART FA 07/18/2019 SWETA MANCILLA BILLY Ot I48.0 PAROXYSMAL ATRIAL FIBRILLATION 07/18/2019 SWETA MANCILLA BILLY Ot I50.32 CHRONIC DIASTOLIC (CONGESTIVE) HEART YAMILEX 07/18/2019 SWETA MANCILLA BILLY Ot J18.1 LOBAR PNEUMONIA, UNSPECIFIED ORGANISM 07/18/2019 SWETA MANCILLA BILLY Ot J44.0 CHR OBSTRUCTIVE PULMON DISEASE WITH (ACU 07/18/2019 SWETA MANCILLA BILLY Ot J44.1 CHRONIC OBSTRUCTIVE PULMONARY DISEASE W 07/18/2019 SWETA MANCILLA BILLY Ot J96.00 ACUTE RESPIRATORY FAILURE, UNSP W HYPOXI 07/18/2019 SWETA MANCILLA BILLY Ot 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 07/18/2019 SWETA MANCILLA BILLY Ot 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 07/18/2019 SWETA MANCILLA BILLY Ot M06.9 RHEUMATOID ARTHRITIS, UNSPECIFIED 07/18/2019 SWETA MANCILLA BILLY Ot N28.9 DISORDER OF KIDNEY AND URETER, UNSPECIFI 07/18/2019 SWETA MANCILLA BILLY Ot T50.2X 5A ADVRS EFF OF [facility], [place]-ANHYDR INHIBTR, BENZO 07/18/2019 SWETA MANCILLA BILLY Ot Z79.01 INTERMEDIATE (CURRENT) USE OF ANTICOAGULANT 07/18/2019 SWETA MANCILLA BILLY Ot Z79.51 INTERMEDIATE (CURRENT) USE OF INHALED STERO 07/18/2019 SWETA MANCILLA BILLY Ot 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 07/18/2019 SWETA MANCILLA BILLY Ot Z99.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 07/18/2019 SWETA MANCILLA BILLY Ot D64.9 ANEMIA, UNSPECIFIED 07/18/2019 SWETA MANCILLA BILLY Ot E78.5 HYPERLIPIDEMIA, UNSPECIFIED 07/18/2019 SWETA MANCILLA BILLY Ot E87.1 HYPO-OSMOLALITY AND HYPONATREMIA 07/18/2019 SWETA MANCILLA BILLY Ot F32.9 MAJOR DEPRESSIVE DISORDER, SINGLE EPISOD 07/18/2019 SWETA MANCILLA BILLY Ot I11.0 HYPERTENSIVE HEART DISEASE WITH HEART FA 07/18/2019 SWETA MANCILLA BILLY Ot I48.0 PAROXYSMAL ATRIAL FIBRILLATION 07/18/2019 SWETA MANCILLA BILLY Ot I50.32 CHRONIC DIASTOLIC (CONGESTIVE) HEART YAMILEX 07/18/2019 SWETA MANCILLA BILLY Ot J18.1 LOBAR PNEUMONIA, UNSPECIFIED ORGANISM 07/18/2019 SWETA MANCILLA BILLY Ot J44.0 CHR OBSTRUCTIVE PULMON DISEASE WITH (ACU 07/18/2019 SWETA MANCILLA BILLY Ot J44.1 CHRONIC OBSTRUCTIVE PULMONARY DISEASE W 07/18/2019 SWETA MANCILLA BILLY Ot J96.00 ACUTE RESPIRATORY FAILURE, UNSP W HYPOXI 07/18/2019 SWEAT MANCILLA BILLY Ot 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 07/18/2019 SWETA MANCILLA BILLY Ot 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 07/18/2019 SWETA MANCILLA BILLY Ot J96.21 ACUTE AND CHRONIC RESPIRATORY FAILURE [place] 07/18/2019 SWETA MANCILLA BILLY Ot J96.22 ACUTE AND CHRONIC RESPIRATORY FAILURE [place] 07/18/2019 SWETA MANCILLA BILLY Ot M06.9 RHEUMATOID ARTHRITIS, UNSPECIFIED 07/18/2019 SWETA MANCILLA BILLY Ot N28.9 DISORDER OF KIDNEY AND URETER, UNSPECIFI 07/18/2019 SWETA MANCILLA BILLY Ot T45.1X 5A ADVERSE EFFECT OF ANTINEOPLASTIC AND IMM 07/18/2019 BILLY SOL DO Ot T50.2X 5A ADVRS EFF OF [facility]-ANHYDR INHIBTR, BENZO 07/18/2019 BILLY SOL DO Ot Z79.01 INTERMEDIATE (CURRENT) USE OF ANTICOAGULANT 07/18/2019 BILLY SOL DO Ot 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 0 HYPERTENSIVE HEART DISEASE WITH HEART FA 07/27/2019 LORETTA LOWE MD Ot I50. 9 HEART FAILURE, UNSPECIFIED 07/27/2019 OLRETTA LOWE MD Ot J44. 1 CHRONIC OBSTRUCTIVE PULMONARY DISEASE W 07/27/2019 LORETTA LOWE MD Ot M06. 9 RHEUMATOID ARTHRITIS, UNSPECIFIED 07/27/2019 LORETTA LOWE MD Ot R05 COUGH 07/27/2019 LORETTA LOWE MD Ot Z79. 01 INTERMEDIATE (CURRENT) USE OF ANTICOAGULANT 07/27/2019 LORETTA LOWE MD Ot Z79. 51 MOBILE LAB TECHNICIAN (CURRENT) USE OF INHALED STERO 07/27/2019 LORETTA LOWE MD Ot Z88. 0 ALLERGY STATUS TO PENICILLIN 07/27/2019 LORETTA LOWE MD Ot Z88. 1 ALLERGY STATUS TO OTHER ANTIBIOTIC AGENT 07/27/2019 LORETTA LOWE MD Ot Z88. 2 ALLERGY STATUS TO SULFONAMIDES STATUS 07/27/2019 LORETTA LOWE MD Ot Z99. 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 07/31/2019 LORETTA LOWE MD Ot I11. 0 HYPERTENSIVE HEART DISEASE WITH HEART FA 07/31/2019 LORETTA LOWE MD Ot I50. 9 HEART FAILURE, UNSPECIFIED 07/31/2019 LORETTA LOWE MD Ot J44. 1 CHRONIC OBSTRUCTIVE PULMONARY DISEASE W 07/31/2019 LORETTA LOWE MD Ot M06. 9 RHEUMATOID ARTHRITIS, UNSPECIFIED 07/31/2019 LORETTA LOWE MD Ot R05 COUGH 07/31/2019 LORETTA LOWE MD Ot Z79. 01 MOBILE LAB TECHNICIAN (CURRENT) USE OF ANTICOAGULANT 07/31/2019 LORETTA LOWE MD Ot Z79. 51 INTERMEDIATE (CURRENT) USE OF INHALED STERO 07/31/2019 LORETTA LOWE MD, Ot Z88. 0 ALLERGY STATUS TO PENICILLIN 07/31/2019 LORETTA LOWE MD, Ot Z88. 1 ALLERGY STATUS TO OTHER ANTIBIOTIC AGENT 07/31/2019 LORETTA LOWE MD, Ot Z88. 2 ALLERGY STATUS TO SULFONAMIDES STATUS 07/31/2019 LORETTA LOWE MD, Ot Z99. 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 Procedures There is no data. Results Test Result Range CMP - 10/17/18 10:39 GLUCOSE 85 mg/dL 65-99 UREA NITROGEN (BUN) 39 mg/dL 7-25 CREATININE 1.38 mg/dL 0.60-0.88 eGFR NON-AFR. HAITIAN 35 mL/min/1.73m2 > OR = 60 eGFR 41 mL/min/1.73m2 > OR = 60 BUN/CREATININE RATIO 28 (calc) 6-22 SODIUM 141 mmol/L 135-146 POTASSIUM 4.3 mmol/L 3.5-5.3 CHLORIDE 99 mmol/L 98-110 CARBON DIOXIDE 33 mmol/L 20-32 CALCIUM 9.7 mg/dL 8.6-10.4 PROTEIN, TOTAL 7.2 g/dL 6.1-8.1 ALBUMIN 3.7 g/dL 3.6-5.1 GLOBULIN 3.5 g/dL (calc) 1.9-3.7 ALBUMIN/GLOBULIN RATIO 1.1 (calc) 1.0-2. 5 BILIRUBIN, TOTAL 0.4 mg/dL 0.2-1.2 ALKALINE PHOSPHATASE 49 U/L 33-130 AST 15 U/L 10-35 ALT 10 U/L 6-29 CBC - 10/17/18 10:39 WHITE BLOOD CELL COUNT 5.2 Thousand/uL 3 .8-10.8 RED BLOOD CELL COUNT 3.24 Million/uL 3.8 0-5.10 HEMOGLOBIN 10.0 g/dL 11.7-15.5 HEMATOCRIT 31.0 % 35.0-45.0 MCV 95.7 fL 80.0-100.0 MCH 30.9 pg 27.0-33.0 MCHC 32.3 g/dL 32.0-36.0 RDW 12.5 % 11.0-15.0 PLATELET COUNT 209 Thousand/uL 140-400 MPV 10.2 fL 7.5-12.5 ABSOLUTE NEUTROPHILS 3115 cells/uL 1500- 7800 ABSOLUTE LYMPHOCYTES 1373 cells/uL 850-3 900 ABSOLUTE MONOCYTES 421 cells/uL 200-950 ABSOLUTE EOSINOPHILS [...] 7-25 CREATININE 1.30 mg/dL 0.60-0.88 eGFR NON-AFR. HAITIAN 38 mL/min/1.73m2 > OR = 60 eGFR 44 mL/min/1.73m2 > OR = 60 BUN/CREATININE RATIO 26 (calc) 6-22 SODIUM 137 mmol/L 135-146 POTASSIUM 4.5 mmol/L 3.5-5.3 CHLORIDE 99 mmol/L 98-110 CARBON DIOXIDE 32 mmol/L 20-32 CALCIUM 9.9 mg/dL 8.6-10.4 PROTEIN, TOTAL 6.9 g/dL 6.1-8.1 ALBUMIN 3.5 g/dL 3.6-5.1 GLOBULIN 3.4 g/dL (calc) 1.9-3.7 ALBUMIN/GLOBULIN RATIO 1.0 (calc) 1.0-2. 5 BILIRUBIN, TOTAL 0.3 mg/dL 0.2-1.2 ALKALINE PHOSPHATASE 60 U/L 33-130 AST 14 U/L 10-35 ALT 8 U/L 6-29 CBC - 01/16/19 10:45 WHITE BLOOD CELL COUNT 6.5 Thousand/uL 3 .8-10.8 RED BLOOD CELL COUNT 3.36 Million/uL 3.8 0-5.10 HEMOGLOBIN 10.0 g/dL 11.7-15.5 HEMATOCRIT 31.0 % 35.0-45.0 MCV 92.3 fL 80.0-100.0 MCH 29.8 pg 27.0-33.0 MCHC 32.3 g/dL 32.0-36.0 RDW 13.0 % 11.0-15.0 PLATELET COUNT 188 Thousand/uL 140-400 MPV 10.0 fL 7.5-12.5 ABSOLUTE NEUTROPHILS 4362 cells/uL 1500- 7800 ABSOLUTE LYMPHOCYTES 1352 cells/uL 850-3 900 ABSOLUTE MONOCYTES 514 cells/uL 200-950 ABSOLUTE EOSINOPHILS 241 cells/uL 15-500 ABSOLUTE BASOPHILS 33 cells/uL 0-200 NEUTROPHILS 67.1 % NRG LYMPHOCYTES 20.8 % NRG MONOCYTES 7.9 % NRG EOSINOPHILS 3.7 % NRG BASOPHILS 0.5 % NRG BNP - 01/16/19 10:45 B TYPE NATRIURETIC PEPTIDE (BNP) 344 pg/mL <100 Complete blood count (CBC) with automate d white blood cell (WBC) differential - 03/03/19 11:03 Blood leukocytes automated count (number/volume) 9.4 10*3/uL 4.3-11.0 Blood erythrocytes automated count (number/volume) 3.02 10*6/uL 4.35-5.85 Venous blood hemoglobin measurement (mass/volume) 9.1 g/dL 11.5-16.0 Blood hematocrit (volume fraction) 30 % 35-52 Automated erythrocyte mean corpuscular volume 100 [foz_us] 80-99 Automated erythrocyte mean corpuscular h emoglobin (mass per erythrocyte) 30 pg 25-34 Automated erythrocyte mean corpuscular h emoglobin concentration measurement (mass/volume) 30 g/dL 32-36 Automated erythrocyte distribution width ratio 15. 1 % 10.0- 14.5 Automated blood platelet count (count/volume) 186 10*3/uL 130-400 Automated blood platelet mean volume measurement 9.4 [foz_us] 7.4-10.4 Automated blood neutrophils/100 leukocytes 82 % 42-75 Automated blood lymphocytes/100 leukocytes 11 % 12-44 Blood monocytes/100 leukocytes 7 % 0-12 Automated blood eosinophils/100 leukocytes 0 % 0-10 Automated blood basophils/100 leukocytes 0 % 0-10 Blood neutrophils automated count (number/volume) 7.7 10*3 1.8-7.8 Blood lymphocytes automated count (number/volume) 1.0 10*3 1.0-4.0 Blood monocytes automated count (number/volume) 0. 6 10*3 0.0-1.0 Automated eosinophil count 0.0 10*3/uL 0 .0-0.3 Automated blood basophil count (count/volume) 0.0 10*3/uL 0.0-0.1 Serum or plasma troponin i.cardiac measu rement (mass/volume) - 03/03/19 11:03 Serum or plasma troponin i.cardiac measurement (mass/v olume) < ng/mL <0.30 Comprehensive metabolic panel - 03/03/19 11:03 Serum or plasma sodium measurement (moles/volume) 137 mmol/L 135-145 Serum or plasma potassium measurement (moles/volume) 5.5 mmol/L 3.6-5.0 Serum or plasma chloride measurement (moles/volume) 96 mmol/L 98-107 Carbon dioxide 34 mmol/L 21-32 Serum or plasma anion gap determination (moles/volume) 7 mmol/L 5-14 Serum or plasma urea nitrogen measurement (mass/volume ) 37 mg/dL 7-18 Serum or plasma creatinine measurement (mass/volume) 1.39 mg/dL 0.60-1.30 Serum or plasma urea nitrogen/creatinine mass ratio 27 NRG Serum or plasma creatinine measurement w ith calculation of estimated glomerular filtration rate 36 NRG Serum or plasma glucose measurement (mass/volume) 106 mg/dL 70-105 Serum or plasma calcium measurement (mass/volume) 9.6 mg/dL 8.5-10.1 Serum or plasma total bilirubin measurement (mass/volu me) 0.6 mg/dL 0.1-1.0 Serum or plasma alkaline phosphatase reshma surement (enzymatic activity/volume) 170 U/L 40-136 Serum or plasma aspartate aminotransfera se measurement (enzymatic activity/volume) 183 U/L 5-34 Serum or plasma alanine aminotransferase measurement (enzymatic activity/volume) 170 U/L 0-55 Serum or plasma protein measurement (mass/volume) 7.6 g/dL 6.4-8.2 Serum or plasma albumin measurement (mass/volume) 3.4 g/dL 3.2-4.5 CALCIUM CORRECTED 10.1 mg/dL 8.5-10.1 Magnesium - 03/03/19 11:03 Magnesium 2.2 mg/dL 1.8-2.4 PROBNP FS - 03/03/19 11:03 [place] [address].0 pg/mL <75.0 Arterial blood gas measurement - 9 11:30 Blood pCO2 68 mm[Hg] 35-45 Blood pO2 136 mm[Hg] 79-93 Arterial blood bicarbonate measurement (moles/volume) 38 mmol/L 23-27 Arterial blood base excess by calculation 10.4 mmo l/L -2.5-2.5 Arterial blood oxygen saturation measurement 99 % 94-100 * Inhaled oxygen flow rate 4 OXYMASK NR G Arterial blood pH measurement with patient temperature correction 7.36 7.37-7.43 Arterial blood carbon dioxide, total measurement (mole s/volume) 40.5 mmol/L 21.0-31.0 Body site LT RAD NRG Assessment of wrist artery patency prior to arterial p uncture YES-POS NRG Setting of ventilation mode NO NR G Measurement of body temperature 97.5 NRG Blood lactic acid measurement (moles/vol ume) - 03/03/19 11:34 Blood lactic acid measurement (moles/volume) 0.56 mmol/L 0.50-2.00 Bacterial blood culture - 03/03/19 12:40 Bacterial blood culture NG NRG Bacterial blood culture - 03/03/19 12:46 Bacterial blood culture NG NRG [facility] - 03/14/19 15:06 GLUCOSE 91 mg/dL 65-99 UREA NITROGEN (BUN) 78 mg/dL 7-25 CREATININE 1.89 mg/dL 0.60-0.88 eGFR NON-AFR. HAITIAN 24 mL/min/1.73m2 > OR = 60 eGFR 28 mL/min/1.73m2 > OR = 60 BUN/CREATININE RATIO 41 (calc) 6-22 SODIUM 136 mmol/L 135-146 POTASSIUM 4.7 mmol/L 3.5-5.3 CHLORIDE 91 mmol/L 98-110 CARBON DIOXIDE 40 mmol/L 20-32 CALCIUM 9.8 mg/dL 8.6-10.4 [facility] - 03/29/19 14:43 GLUCOSE 83 mg/dL 65-99 UREA NITROGEN (BUN) 53 mg/dL 7-25 CREATININE 1.28 mg/dL 0.60-0.88 eGFR NON-AFR. HAITIAN 39 mL/min/1.73m2 > OR = 60 eGFR 45 mL/min/1.73m2 > OR = 60 BUN/CREATININE RATIO 41 (calc) 6-22 SODIUM 129 mmol/L 135-146 POTASSIUM 4.3 mmol/L 3.5-5.3 CHLORIDE 88 mmol/L 98-110 CARBON DIOXIDE 34 mmol/L 20-32 CALCIUM 9.5 mg/dL 8.6-10.4 LIPID PANEL - 06/29/19 10:59 CHOLESTEROL, TOTAL 165 mg/dL <200 HDL CHOLESTEROL 82 mg/dL >50 TRIGLYCERIDES 65 mg/dL <150 LDL-CHOLESTEROL 69 mg/dL (calc) NRG CHOL/HDLC RATIO 2.0 (calc) <5.0 NON HDL CHOLESTEROL 83 mg/dL (calc) <130 CMP - 06/29/19 10:59 GLUCOSE 87 mg/dL 65-99 UREA NITROGEN (BUN) 37 mg/dL 7-25 CREATININE 1.05 mg/dL 0.60-0.88 eGFR NON-AFR. HAITIAN 49 mL/min/1.73m2 > OR = 60 eGFR 57 mL/min/1.73m2 > OR = 60 BUN/CREATININE RATIO 35 (calc) 6-22 SODIUM 130 mmol/L 135-146 POTASSIUM 4.7 mmol/L 3.5-5.3 CHLORIDE 89 mmol/L 98-110 CARBON DIOXIDE 33 mmol/L 20-32 CALCIUM 9.5 mg/dL 8.6-10.4 PROTEIN, TOTAL 6.6 g/dL 6.1-8.1 ALBUMIN 3.6 g/dL 3.6-5.1 GLOBULIN 3.0 g/dL (calc) 1.9-3.7 ALBUMIN/GLOBULIN RATIO 1.2 (calc) 1.0-2. 5 BILIRUBIN, TOTAL 0.4 mg/dL 0.2-1.2 ALKALINE PHOSPHATASE 107 U/L 33-130 AST 15 U/L 10-35 ALT 12 U/L 6-29 CBC - 06/29/19 10:59 WHITE BLOOD CELL COUNT 5.4 Thousand/uL 3 .8-10.8 RED BLOOD CELL COUNT 2.70 Million/uL 3.8 0-5.10 HEMOGLOBIN 8.6 g/dL 11.7-15.5 HEMATOCRIT 25.4 % 35.0-45.0 MCV 94.1 fL 80.0-100.0 MCH 31.9 pg 27.0-33.0 MCHC 33.9 g/dL 32.0-36.0 RDW 14.0 % 11.0-15.0 PLATELET COUNT 291 Thousand/uL 140-400 MPV 9.6 fL 7.5-12.5 ABSOLUTE NEUTROPHILS 4034 cells/uL 1500- 7800 ABSOLUTE LYMPHOCYTES 729 cells/uL 850-39 00 ABSOLUTE MONOCYTES 432 cells/uL 200-950 ABSOLUTE EOSINOPHILS 167 cells/uL 15-500 ABSOLUTE BASOPHILS 38 cells/uL 0-200 NEUTROPHILS 74.7 % NRG LYMPHOCYTES 13.5 % NRG MONOCYTES 8.0 % NRG EOSINOPHILS 3.1 % NRG BASOPHILS 0.7 % NRG Bacterial urine culture - 07/14/19 20:32 Bacterial urine culture [id number] NRG COLONY COUNT 80,000 CFU/ML NRG Complete blood count (CBC) with automate d white blood cell (WBC) differential - 07/14/19 20:51 Blood leukocytes automated count (number/volume) 9.4 10*3/uL 4.3-11.0 Blood erythrocytes automated count (number/volume) 2.47 10*6/uL 4.35-5.85 Venous blood hemoglobin measurement (mass/volume) 8.0 g/dL 11.5-16.0 Blood hematocrit (volume fraction) 25 % 35-52 Automated erythrocyte mean corpuscular volume 100 [foz_us] 80-99 Automated erythrocyte mean corpuscular h emoglobin (mass per erythrocyte) 32 pg 25-34 Automated erythrocyte mean corpuscular h emoglobin concentration measurement (mass/volume) 32 g/dL 32-36 Automated erythrocyte distribution width ratio 15. 4 % 10.0- 14.5 Automated blood platelet count (count/volume) 360 10*3/uL 130-400 Automated blood platelet mean volume measurement 8.6 [foz_us] 7.4-10.4 Automated blood neutrophils/100 leukocytes 80 % 42-75 Automated blood lymphocytes/100 leukocytes 8 % 12-44 Blood monocytes/100 leukocytes 9 % 0-12 Automated blood eosinophils/100 leukocytes 2 % 0-10 Automated blood basophils/100 leukocytes 0 % 0-10 Blood neutrophils automated count (number/volume) 7.5 10*3 1.8-7.8 Blood lymphocytes automated count (number/volume) 0.8 10*3 1.0-4.0 Blood monocytes automated count (number/volume) 0. 9 10*3 0.0-1.0 Automated eosinophil count 0.1 10*3/uL 0 .0-0.3 Automated blood basophil count (count/volume) 0.0 10*3/uL 0.0-0.1 PT panel in platelet poor plasma by coag ulation assay - 07/14/19 20:51 Prothrombin time (PT) in platelet poor plasma by coagu lation assay 17.4 s 12.2-14.7 INR in platelet poor plasma or blood by coagulation as say 1.4 0.8-1.4 Activated partial thromboplastin time (a PTT) in platelet poor plasma bycoagulation assay - 07/14/19 20:51 Activated partial thromboplastin time (a PTT) in platelet poor plasma bycoagulation assay 36 s 24-35 Blood lactic acid measurement (moles/vol ume) - 07/14/19 20:51 Blood lactic acid measurement (moles/volume) 0.55 mmol/L 0.50-2.00 Comprehensive metabolic panel - 07/14/19 20:51 Serum or plasma sodium measurement (moles/volume) 121 mmol/L 135-145 Serum or plasma potassium measurement (moles/volume) 4.6 mmol/L 3.6-5.0 Serum or plasma chloride measurement (moles/volume) 78 mmol/L 98-107 Carbon dioxide 31 mmol/L 21-32 Serum or plasma anion gap determination (moles/volume) 12 mmol/L 5-14 Serum or plasma urea nitrogen measurement (mass/volume ) 50 mg/dL 7-18 Serum or plasma creatinine measurement (mass/volume) 1.33 mg/dL 0.60-1.30 Serum or plasma urea nitrogen/creatinine mass ratio 38 NRG Serum or plasma creatinine measurement w ith calculation of estimated glomerular filtration rate 38 NRG Serum or plasma glucose measurement (mass/volume) 136 mg/dL 70-105 Serum or plasma calcium measurement (mass/volume) 9.1 mg/dL 8.5-10.1 Serum or plasma total bilirubin measurement (mass/volu me) 0.3 mg/dL 0.1-1.0 Serum or plasma alkaline phosphatase reshma surement (enzymatic activity/volume) 153 U/L 40-136 Serum or plasma aspartate aminotransfera se measurement (enzymatic activity/volume) 20 U/L 5-34 Serum or plasma alanine aminotransferase measurement (enzymatic activity/volume) 25 U/L 0-55 Serum or plasma protein measurement (mass/volume) 7.0 g/dL 6.4-8.2 Serum or plasma albumin measurement (mass/volume) 3.3 g/dL 3.2-4.5 CALCIUM CORRECTED 9.7 mg/dL 8.5-10.1 Bacterial blood culture - 07/14/19 20:51 Bacterial blood culture NG NRG Bacterial blood culture - 07/14/19 21:10 Bacterial blood culture NG NRG Arterial blood gas measurement - 9 21:15 Blood pCO2 60 mm[Hg] 35-45 Blood pO2 147 mm[Hg] 79-93 Arterial blood bicarbonate measurement (moles/volume) 38 mmol/L 23-27 Arterial blood base excess by calculation 11.1 mmo l/L -2.5-2.5 Arterial blood oxygen saturation measurement 99 % 94-100 * Inhaled oxygen flow rate 5 NRG Arterial blood pH measurement with patient temperature correction 7.41 7.37-7.43 Arterial blood carbon dioxide, total measurement (mole s/volume) 39.8 mmol/L 21.0-31.0 Body site RIGHT WRIST NRG Assessment of wrist artery patency prior to arterial p uncture POSITIVE NRG Setting of ventilation mode NO NR G Measurement of body temperature 36.5 NRG Influenza virus A and B antigen detectio n - 07/14/19 21:30 FLU RESULT NEGATIVE FOR INFLUENZA A AND B ANTIGENS BY IA NRG Complete urinalysis with reflex to cultu re - 07/14/19 23:10 Urine color determination YELLOW NRG Urine clarity determination CLEAR NR G Urine pH measurement by test strip 6.0 5-9 Specific gravity of urine by test strip 1.010 1.016-1.022 Urine protein assay by test strip, semi-quantitative NEGATIVE NEGATIVE Urine glucose detection by automated test strip NE GATIVE NEGATIVE Erythrocytes detection in urine sediment by light micr oscopy NEGATIVE NEGATIVE Urine ketones detection by automated test strip NE GATIVE NEGATIVE Urine nitrite detection by test strip NEGATIVE NEGATIVE Urine total bilirubin detection by test strip NEGA TIVE NEGATIVE Urine urobilinogen measurement by automated test strip (mass/volume) 0.2 mg/dL < = 1.0 Urine leukocyte esterase detection by dipstick NEG ATIVE NEGATIVE Automated urine sediment erythrocyte cou nt by microscopy (number/high power field) 0 [HPF] NRG Automated urine sediment leukocyte count by microscopy (number/high power field) [HPF] NRG Bacteria detection in urine sediment by light microsco py TRACE NRG Squamous epithelial cells detection in u rine sediment by light microscopy 10-25 NRG Crystals detection in urine sediment by light microsco py NONE NRG Casts detection in urine sediment by light microscopy PRESENT NRG Mucus detection in urine sediment by light microscopy NEGATIVE NRG Complete urinalysis with reflex to culture NO NRG Hyaline casts detection in urine sediment by light lobo roscopy 2-5 NRG Comprehensive metabolic panel - 07/15/19 05:02 Serum or plasma sodium measurement (moles/volume) 128 mmol/L 135-145 Serum or plasma potassium measurement (moles/volume) 4.5 mmol/L 3.6-5.0 Serum or plasma chloride measurement (moles/volume) 88 mmol/L 98-107 Carbon dioxide 26 mmol/L 21-32 Serum or plasma anion gap determination (moles/volume) 14 mmol/L 5-14 Serum or plasma urea nitrogen measurement (mass/volume ) 40 mg/dL 7-18 Serum or plasma creatinine measurement (mass/volume) 1.18 mg/dL 0.60-1.30 Serum or plasma urea nitrogen/creatinine mass ratio 34 NRG Serum or plasma creatinine measurement w ith calculation of estimated glomerular filtration rate 44 NRG Serum or plasma glucose measurement (mass/volume) 136 mg/dL 70-105 Serum or plasma calcium measurement (mass/volume) 9.1 mg/dL 8.5-10.1 Serum or plasma total bilirubin measurement (mass/volu me) 0.2 mg/dL 0.1-1.0 Serum or plasma alkaline phosphatase reshma surement (enzymatic activity/volume) 147 U/L 40-136 Serum or plasma aspartate aminotransfera se measurement (enzymatic activity/volume) 19 U/L 5-34 Serum or plasma alanine aminotransferase measurement (enzymatic activity/volume) 27 U/L 0-55 Serum or plasma protein measurement (mass/volume) 6.9 g/dL 6.4-8.2 Serum or plasma albumin measurement (mass/volume) 3.4 g/dL 3.2-4.5 CALCIUM CORRECTED 9.6 mg/dL 8.5-10.1 Complete blood count (CBC) with automate d white blood cell (WBC) differential - 07/15/19 05:03 Blood leukocytes automated count (number/volume) 7.6 10*3/uL 4.3-11.0 Blood erythrocytes automated count (number/volume) 2.62 10*6/uL 4.35-5.85 Venous blood hemoglobin measurement (mass/volume) 8.2 g/dL 11.5-16.0 Blood hematocrit (volume fraction) 26 % 35-52 Automated erythrocyte mean corpuscular volume 100 [foz_us] 80-99 Automated erythrocyte mean corpuscular h emoglobin (mass per erythrocyte) 31 pg 25-34 Automated erythrocyte mean corpuscular h emoglobin concentration measurement (mass/volume) 31 g/dL 32-36 Automated erythrocyte distribution width ratio 15. 2 % 10.0- 14.5 Automated blood platelet count (count/volume) 325 10*3/uL 130-400 Automated blood platelet mean volume measurement 8.4 [foz_us] 7.4-10.4 Automated blood neutrophils/100 leukocytes 95 % 42-75 Automated blood lymphocytes/100 leukocytes 4 % 12-44 Blood monocytes/100 leukocytes 1 % 0-12 Automated blood eosinophils/100 leukocytes 0 % 0-10 Automated blood basophils/100 leukocytes 0 % 0-10 Blood neutrophils automated count (number/volume) 7.3 10*3 1.8-7.8 Blood lymphocytes automated count (number/volume) 0.3 10*3 1.0-4.0 Blood monocytes automated count (number/volume) 0. 0 10*3 0.0-1.0 Automated eosinophil count 0.0 10*3/uL 0 .0-0.3 Automated blood basophil count (count/volume) 0.0 10*3/uL 0.0-0.1 Manual absolute plasma cell count - 06/23 12/08 05:03 Blood monocytes/100 leukocytes 1 % NRG Manual blood segmented neutrophils/100 leukocytes 96 % NRG Manual blood lymphocytes/100 leukocytes 3 % NRG Complete blood count (CBC) with automate d white blood cell (WBC) differential - 07/16/19 05:27 Blood leukocytes automated count (number/volume) 7.2 10*3/uL 4.3-11.0 Blood erythrocytes automated count (number/volume) 2.39 10*6/uL 4.35-5.85 Venous blood hemoglobin measurement (mass/volume) 7.5 g/dL 11.5-16.0 Blood hematocrit (volume fraction) 24 % 35-52 Automated erythrocyte mean corpuscular volume 102 [foz_us] 80-99 Automated erythrocyte mean corpuscular h emoglobin (mass per erythrocyte) 31 pg 25-34 Automated erythrocyte mean corpuscular h emoglobin concentration measurement (mass/volume) 31 g/dL 32-36 Automated erythrocyte distribution width ratio 15. 1 % 10.0- 14.5 Automated blood platelet count (count/volume) 307 10*3/uL 130-400 Automated blood platelet mean volume measurement 8.6 [foz_us] 7.4-10.4 Automated blood neutrophils/100 leukocytes 95 % 42-75 Automated blood lymphocytes/100 leukocytes 4 % 12-44 Blood monocytes/100 leukocytes 1 % 0-12 Automated blood eosinophils/100 leukocytes 0 % 0-10 Automated blood basophils/100 leukocytes 0 % 0-10 Blood neutrophils automated count (number/volume) 6.9 10*3 1.8-7.8 Blood lymphocytes automated count (number/volume) 0.3 10*3 1.0-4.0 Blood monocytes automated count (number/volume) 0. 1 10*3 0.0-1.0 Automated eosinophil count 0.0 10*3/uL 0 .0-0.3 Automated blood basophil count (count/volume) 0.0 10*3/uL 0.0-0.1 Comprehensive metabolic panel - 07/16/19 05:27 Serum or plasma sodium measurement (moles/volume) 130 mmol/L 135-145 Serum or plasma potassium measurement (moles/volume) 4.8 mmol/L 3.6-5.0 Serum or plasma chloride measurement (moles/volume) 94 mmol/L 98-107 Carbon dioxide 29 mmol/L 21-32 Serum or plasma anion gap determination (moles/volume) 7 mmol/L 5-14 Serum or plasma urea nitrogen measurement (mass/volume ) 40 mg/dL 7-18 Serum or plasma creatinine measurement (mass/volume) 1.05 mg/dL 0.60-1.30 Serum or plasma urea nitrogen/creatinine mass ratio 38 NRG Serum or plasma creatinine measurement w ith calculation of estimated glomerular filtration rate 50 NRG Serum or plasma glucose measurement (mass/volume) 136 mg/dL 70-105 Serum or plasma calcium measurement (mass/volume) 9.0 mg/dL 8.5-10.1 Serum or plasma total bilirubin measurement (mass/volu me) 0.2 mg/dL 0.1-1.0 Serum or plasma alkaline phosphatase reshma surement (enzymatic activity/volume) 117 U/L 40-136 Serum or plasma aspartate aminotransfera se measurement (enzymatic activity/volume) 14 U/L 5-34 Serum or plasma alanine aminotransferase measurement (enzymatic activity/volume) 22 U/L 0-55 Serum or plasma protein measurement (mass/volume) 6.2 g/dL 6.4-8.2 Serum or plasma albumin measurement (mass/volume) 3.1 g/dL 3.2-4.5 CALCIUM CORRECTED 9.7 mg/dL 8.5-10.1 Complete blood count (CBC) with automate d white blood cell (WBC) differential - 07/18/19 04:50 Blood leukocytes automated count (number/volume) 6.9 10*3/uL 4.3-11.0 Blood erythrocytes automated count (number/volume) 2.66 10*6/uL 4.35-5.85 Venous blood hemoglobin measurement (mass/volume) 8.4 g/dL 11.5-16.0 Blood hematocrit (volume fraction) 28 % 35-52 Automated erythrocyte mean corpuscular volume 105 [foz_us] 80-99 Automated erythrocyte mean corpuscular h emoglobin (mass per erythrocyte) 32 pg 25-34 Automated erythrocyte mean corpuscular h emoglobin concentration measurement (mass/volume) 30 g/dL 32-36 Automated erythrocyte distribution width ratio 15. 6 % 10.0- 14.5 Automated blood platelet count (count/volume) 342 10*3/uL 130-400 Automated blood platelet mean volume measurement 8.5 [foz_us] 7.4-10.4 Automated blood neutrophils/100 leukocytes 94 % 42-75 Automated blood lymphocytes/100 leukocytes 4 % 12-44 Blood monocytes/100 leukocytes 2 % 0-12 Automated blood eosinophils/100 leukocytes 0 % 0-10 Automated blood basophils/100 leukocytes 0 % 0-10 Blood neutrophils automated count (number/volume) 6.5 10*3 1.8-7.8 Blood lymphocytes automated count (number/volume) 0.3 10*3 1.0-4.0 Blood monocytes automated count (number/volume) 0. 1 10*3 0.0-1.0 Automated eosinophil count 0.0 10*3/uL 0 .0-0.3 Automated blood basophil count (count/volume) 0.0 10*3/uL 0.0-0.1 Comprehensive metabolic panel - 07/18/19 04:50 Serum or plasma sodium measurement (moles/volume) 133 mmol/L 135-145 Serum or plasma potassium measurement (moles/volume) 5.2 mmol/L 3.6-5.0 Serum or plasma chloride measurement (moles/volume) 97 mmol/L 98-107 Carbon dioxide 29 mmol/L 21-32 Serum or plasma anion gap determination (moles/volume) 7 mmol/L 5-14 Serum or plasma urea nitrogen measurement (mass/volume ) 50 mg/dL 7-18 Serum or plasma creatinine measurement (mass/volume) 1.28 mg/dL 0.60-1.30 Serum or plasma urea nitrogen/creatinine mass ratio 39 NRG Serum or plasma creatinine measurement w ith calculation of estimated glomerular filtration rate 40 NRG Serum or plasma glucose measurement (mass/volume) 128 mg/dL 70-105 Serum or plasma calcium measurement (mass/volume) 9.5 mg/dL 8.5-10.1 Serum or plasma total bilirubin measurement (mass/volu me) 0.2 mg/dL 0.1-1.0 Serum or plasma alkaline phosphatase reshma surement (enzymatic activity/volume) 109 U/L 40-136 Serum or plasma aspartate aminotransfera se measurement (enzymatic activity/volume) 16 U/L 5-34 Serum or plasma alanine aminotransferase measurement (enzymatic activity/volume) 17 U/L 0-55 Serum or plasma protein measurement (mass/volume) 6.2 g/dL 6.4-8.2 Serum or plasma albumin measurement (mass/volume) 3.2 g/dL 3.2-4.5 CALCIUM CORRECTED 10.1 mg/dL 8.5-10.1 Complete blood count (CBC) with automate d white blood cell (WBC) differential - 07/22/19 06:25 Blood leukocytes automated count (number/volume) 11.1 10*3/uL 4.3-11.0 Blood erythrocytes automated count (number/volume) 2.57 10*6/uL 4.35-5.85 Venous blood hemoglobin measurement (mass/volume) 8.3 g/dL 11.5-16.0 Blood hematocrit (volume fraction) 27 % 35-52 Automated erythrocyte mean corpuscular volume 107 [[facility]] 80-99 Automated erythrocyte mean corpuscular h emoglobin (mass per erythrocyte) 32 pg 25-34 Automated erythrocyte mean corpuscular h emoglobin concentration measurement (mass/volume) 30 g/dL 32-36 Automated erythrocyte distribution width ratio 15. 8 % 10.0- 14.5 Automated blood platelet count (count/volume) 255 10*3/uL 130-400 Automated blood platelet mean volume measurement 8.8 [foz_us] 7.4-10.4 Automated blood neutrophils/100 leukocytes 83 % 42-75 Automated blood lymphocytes/100 leukocytes 7 % 12-44 Blood monocytes/100 leukocytes 8 % 0-12 Automated blood eosinophils/100 leukocytes 1 % 0-10 Automated blood basophils/100 leukocytes 0 % 0-10 Blood neutrophils automated count (number/volume) 9.2 10*3 1.8-7.8 Blood lymphocytes automated count (number/volume) 0.8 10*3 1.0-4.0 Blood monocytes automated count (number/volume) 0. 9 10*3 0.0-1.0 Automated eosinophil count 0.1 10*3/uL 0 .0-0.3 Automated blood basophil count (count/volume) 0.0 10*3/uL 0.0-0.1 Manual absolute plasma cell count - 09/09 06:25 Blood monocytes/100 leukocytes 3 % NRG Manual blood segmented neutrophils/100 leukocytes 84 % NRG Manual blood lymphocytes/100 leukocytes 11 % NRG Blood lymphocytes variant/100 leukocytes 2 % NRG Blood macrocytes detection by light microscopy [facility] Comprehensive metabolic panel - 07/22/19 06:25 Serum or plasma sodium measurement (moles/volume) 135 mmol/L 135-145 Serum or plasma potassium measurement (moles/volume) 5.1 mmol/L 3.6-5.0 Serum or plasma chloride measurement (moles/volume) 95 mmol/L 98-107 Carbon dioxide 34 mmol/L 21-32 Serum or plasma anion gap determination (moles/volume) 6 mmol/L 5-14 Serum or plasma urea nitrogen measurement (mass/volume ) 51 mg/dL 7-18 Serum or plasma creatinine measurement (mass/volume) 1.12 mg/dL 0.60-1.30 Serum or plasma urea nitrogen/creatinine mass ratio 46 NRG Serum or plasma creatinine measurement w ith calculation of estimated glomerular filtration rate 46 NRG Serum or plasma glucose measurement (mass/volume) 100 mg/dL 70-105 Serum or plasma calcium measurement (mass/volume) 9.1 mg/dL 8.5-10.1 Serum or plasma total bilirubin measurement (mass/volu me) 0.2 mg/dL 0.1-1.0 Serum or plasma alkaline phosphatase reshma surement (enzymatic activity/volume) 82 U/L 40-136 Serum or plasma aspartate aminotransfera se measurement (enzymatic activity/volume) 21 U/L 5-34 Serum or plasma alanine aminotransferase measurement (enzymatic activity/volume) 20 U/L 0-55 Serum or plasma protein measurement (mass/volume) 6.1 g/dL 6.4-8.2 Serum or plasma albumin measurement (mass/volume) 3.1 g/dL 3.2-4.5 CALCIUM CORRECTED 9.8 mg/dL 8.5-10.1 TROPONIN I FS - 07/22/19 06:25 TROPONIN I FS < 0.30 <0.30 PROBNP FS - 07/22/19 06:25 PROBNP FS 5980.0 pg/mL <75.0 CRP FS - 07/22/19 06:25 CRP FS 2.28 mg/dL <0.50 Arterial blood gas measurement - 9 06:46 Blood pCO2 77 mm[Hg] 35-45 Blood pO2 315 mm[Hg] 79-93 Arterial blood bicarbonate measurement (moles/volume) 43 mmol/L 23-27 Arterial blood base excess by calculation 13.6 mmo l/L -2.5-2.5 Arterial blood oxygen saturation measurement 100 % 94-100 * Inhaled oxygen flow rate 2 NRG Arterial blood pH measurement with patient temperature correction 7.35 7.37-7.43 Arterial blood carbon dioxide, total measurement (mole s/volume) 44.9 mmol/L 21.0-31.0 Body site RT WRIST NRG Assessment of wrist artery patency prior to arterial p uncture NEGATIVE NRG Setting of ventilation mode NO NR G Measurement of body temperature 36.8 NRG Complete urinalysis with reflex to cultu re - 07/22/19 07:30 Urine color determination YELLOW NRG Urine clarity determination CLEAR NR G Urine pH measurement by test strip 6.0 5-9 Specific gravity of urine by test strip 1.010 1.016-1.022 Urine protein assay by test strip, semi-quantitative TRACE NEGATIVE Urine glucose detection by automated test strip NE GATIVE NEGATIVE Erythrocytes detection in urine sediment by light micr oscopy NEGATIVE NEGATIVE Urine ketones detection by automated test strip NE GATIVE NEGATIVE Urine nitrite detection by test strip NEGATIVE NEGATIVE Urine total bilirubin detection by test strip NEGA TIVE NEGATIVE Urine urobilinogen measurement by automated test strip (mass/volume) 0.2 mg/dL < = 1.0 Urine leukocyte esterase detection by dipstick NEG ATIVE NEGATIVE Automated urine sediment erythrocyte cou nt by microscopy (number/high power field) NONE NRG Automated urine sediment leukocyte count by microscopy (number/high power field) NONE NRG Bacteria detection in urine sediment by light microsco py NONE NRG Crystals detection in urine sediment by light microsco py PRESENT NRG Casts detection in urine sediment by light microscopy NONE NRG Mucus detection in urine sediment by light microscopy NEGATIVE NRG Complete urinalysis with reflex to culture NO NRG Amorphous sediment detection in urine sediment by ligh t microscopy FEW RADHA URATES NRG Encounters ACCT No. Visit Date/Time Discharge Status Pt. Type Provider Facility Loc./Unit Complaint [id number] 08/08/2019 15:15:00 08/08/2019 23:59:5 9 CLS Outpatient RIGO PARIKH [facility] [id number] 06/29/2019 09:30:00 Document Registration [id number] 03/29/2019 14:15:00 Document Registration [id number] 03/14/2019 15:15:00 Document Registration [id number] 01/16/2019 10:00:00 Document Registration [id number] 10/17/2018 10:15:00 Document Registration [id number] 07/22/2019 06:11:00 10:50:00 DIS Outpatient CHRISSY FLETCHER, [facility] FS COUGH [id number] 07/14/2019 22:29:00 15:30:00 DIS Inpatient BILLY SOL DO, [facility] 4TH PNA HYPOXIA ACUTE ON CH RONIC RESP FAIL HYPONATREMI [id number] 03/03/2019 10:48:00 16:10:00 DIS Emergency MICHAEL CARRASQUILLO MD [facility] FS LENI
== END 2019-07-22 10:50 | disposition short-term general hospital (02) ==
LOC: EDUNIT# 06:04 → ER FS 06:11
DX: J44.1 Chronic obstructive pulmonary disease with (acute) exacerbation (principal); I11.0 Hypertensive heart disease with heart failure; I50.9 Heart failure, unspecified; M06.9 Rheumatoid arthritis, unspecified; Z99.81 Dependence on supplemental oxygen; Z88.2 Allergy status to sulfonamides; Z88.0 Allergy status to penicillin; Z88.1 Allergy status to other antibiotic agents; Z79.01 Long term (current) use of anticoagulants; Z79.51 Long term (current) use of inhaled steroids
CPT/HCPCS: 36415; 51701; 71045; 80053; 81000; 82805; 83880; 84484; 85007; 85027; 86141; 93005; 94640; 94660; 96374; 96375

== ENCOUNTER 2019-12-31 09:46 | Emergency (ER) | payer MEDICARE, OTHER ==
[~2019-12-31] VITALS: Ht 160 cm; Wt 74.7 kg
[~2019-12-31 09:46] MED LIST changes: -TRAZ-222 PO; +TRZ50T PO
--- NOTE | 2019-12-31 09:58 | ED General ---
General Stated Complaint: SOB Source of Information: Patient, Old Records, RN/MD History of Present Illness Date Seen by Provider: December 31, 2019 Time Seen by Provider: 09:50 Initial Comments This patient is an 84-year-old female presents to the emerge department with shortness of breath. Patient has a long history of congestive heart failure does wear oxygen 24 hours a day. Patient states she recently had her Lasix elevated to 2 tablets twice a day. And actually seen in the outpatient clinic today and had labs drawn. Patient states nothing seems to help or shortness of breath. This is not a new issue. Patient was to evaluate and make sure she is not in congestive heart failure again. We'll do medical evaluation treatment is needed. Timing/Duration: Changing Over Time, Constant Severity: Mild Associated Systoms: No Denies Symptoms, No Chest Pain, No Cough, No Diaphoresis, No Fever/Chills, No Headaches, No Loss of Appetite, No Malaise, No Nausea/Vomiting, No Rash, No Seizure; Shortness of Air; No Syncope, No Weakness, No Other Allergies and Home Medications Allergies Coded Allergies: Sulfa (Sulfonamide Antibiotics) (Unverified Allergy, Unknown, 09/08/06) amoxicillin (Verified Allergy, Unknown, rash, 03/03/19) azithromycin (Verified Allergy, Unknown, rash, 03/03/19) cephalexin (Verified Allergy, Unknown, rash, pt received Cefepime w/o issue, 07/18/19) clavulanic acid (Verified Allergy, Unknown, rash, 03/03/19) colchicine (Verified Allergy, Unknown, rash, 03/03/19) doxycycline (Verified Adverse Reaction, Unknown, diarrhea, 03/03/19) hydralazine (Verified Adverse Reaction, Unknown, headache, 03/03/19) Uncoded Allergies: CYSTEINE (Allergy, Unknown, itching, 03/03/19) Home Medications Acetaminophen 500 Mg Tablet, 1,000 MG PO Q6H PRN for PAIN-MILD (1-4), (Reported) Albuterol Sulfate 90 Mcg Aer.pow.ba, 2 PUFF IH Q6H, (Reported) Allopurinol 300 Mg Tablet, 150 MG PO HS, (Reported) TAKES 1/2 OF A 300MG TAB TO EQUAL 150MG Apixaban 5 Mg Tablet, 5 MG PO BID, (Reported) Benzonatate 100 Mg Capsule, 200 MG PO TID Prescribed by: BILLY SOL on 07/18/19943 Brimonidine Tartrate/Timolol 5 Ml Drops, 1 DROP OU BID, (Reported) Calcium Carbonate/Vitamin D3 1 Each Tablet, 1 EACH PO DAILY, (Reported) Carvedilol 6.25 Mg Tablet, 6.25 MG PO BID, (Reported) Cefdinir 300 Mg Capsule, 300 MG PO BID Prescribed by: BILLY SOL on 07/18/19943 Fluticasone/Salmeterol 12 Gm Hfa.aer.ad, 2 PUFF IH BID@ Prescribed by: BILLY SOL on 07/18/19943 Furosemide 20 Mg Tablet, 20 MG PO DAILY, (Reported) Hydralazine HCl 25 Mg Tablet, 25 MG PO BID, (Reported) Ipratropium/Albuterol Sulfate 3 Ml Ampul.neb, 3 ML NEB Q8H, (Reported) Latanoprost/Pf 7.5 Ml Drops, 1 DROP OU HS, (Reported) ONE DROP BOTH EYES Lisinopril 40 Mg Tablet, 40 MG PO 1800, (Reported) Loratadine 10 Mg Tablet, 10 MG PO DAILY, (Reported) Melatonin 5 Mg Tab.ir.er, 10 MG PO HS, (Reported) TAKES 2 (5MG) TABS Multivitamin with Minerals 1 Each Tablet, 1 EACH PO DAILY, (Reported) [place] 3 Polyunsat Fatty Acids 1,000 Mg Cap, 1,000 MG PO DAILY, (Reported) Pravastatin Sodium 20 Mg Tablet, 20 MG PO HS, (Reported) Prednisone 10 Mg Tab.ds.pk, 10 MG PO DAILY Take 4 tabs(60mg)daily,decrease by 1 tab(10MG)daily. Prescribed by: BILLY SOL on 07/18/19943 Promethazine HCl/Codeine 5 Ml Syrup, 5 ML PO Q6H PRN for COUGH, (Reported) PICKED UP 120ML ON 07-12-2019 Trazodone HCl 50 Mg Tablet, 25 MG PO HS PRN for INSOMNIA, (Reported) TAKES 1/2 OF A 50MG TAB TO EQUAL 25MG Patient Home Medication List Home Medication List Reviewed: Yes Review of Systems Review of Systems Constitutional: No no symptoms reported; see HPI; No chills, No diaphoresis, No dizziness, No fever, No malaise, No weakness, No weight gain, No weight loss, No other EENTM: No see HPI, No no symptoms reported, No ear discharge, No hearing loss, No ear pain, No blurred vision, No double vision, No eye pain, No tearing, No vision loss, No dental problems, No hoarseness, No mouth pain, No mouth swelling, No epistaxis, No nose congestion, No nose pain, No throat pain, No throat swelling, No other Respiratory: No no symptoms reported; see HPI; No cough; dyspnea on exertion; No hemoptysis, No orthopnea, No phlegm; short of breath; No stridor, No wheezing, No other Cardiovascular: No no symptoms reported, No see HPI, No chest pain, No edema, No Hx of Intervention, No palpitations, No syncope, No vascular heart diseas, No other Gastrointestinal: No RUQ, No LUQ, No RLQ, No LLQ, No no symptoms reported, No see HPI, No abdominal pain, No constipation, No diarrhea, No dysphagia, No hematemesis, No heartburn, No jaundice, No loss of appetite, No melena, No nausea, No vomiting, No other Genitourinary: No no symptoms reported, No see HPI, No decreased output, No discharge, No dysuria, No frequency, No hematuria, No hesitancy, No incontinence, No nocturia, No pain, No other Musculoskeletal: No no symptoms reported, No see HPI, No back pain, No gout, No joint pain, No joint swelling, No muscle pain, No muscle stiffness, No muscle cramps, No muscle twitching, No muscle weakness, No neck pain, No other Skin: No no symptoms reported, No see HPI, No change in color, No change in hair/nails, No dryness, No hx of skin cancer, No lesions, No lumps, No pruritus, No rash, No other Psychiatric/Neurological: Denies No Symptoms Reported, Denies See HPI, Denies Anxiety, Denies Depressed, Denies Emotional Problems, Denies Headache, Denies Numbness, Denies Paresthesia, Denies Pre-Existing Deficit, Denies Seizure, Denies Tingling, Denies Tremors, Denies Weakness, Denies Other Hematologic/Lymphatic: Denies No Symptoms Reported, Denies See HPI, Denies Anemia, Denies Blood Clots, Denies Easy Bleeding, Denies Easy Bruising, Denies Swollen Glands, Denies Other All Other Systems Reviewed Negative Unless Noted: Yes Past Bpourql-Rduqdj-Ufudvo Hx Patient Social History 2nd Hand Smoke Exposure: No Recent Foreign Travel: No Contact w/Someone Who Travel: No Recent Hopitalizations: Yes (WAS JUST RELEASED 1 WEEK AGO.) Immunizations Up To Date Date of Influenza Vaccine: May 22, 2019 Seasonal Allergies Seasonal Allergies: No Past Medical History Surgeries: Yes Breast, Orthopedic Respiratory: Yes Pneumonia, COPD Cardiac: Yes Hypertension, Irregular Heartbeat Neurological: Yes (brain bleed) Genitourinary: No Renal Failure Gastrointestinal: No Musculoskeletal: Yes Rheumatoid Arthritis Endocrine: No HEENT: No Cancer: No Psychosocial: No Integumentary: No Physical Exam Vital Signs Vital Signs - First Documented 12/31/19 10:00 Temp 37.0 Pulse 72 Resp 22 B/P (MAP) 160/75 (103) Pulse Ox 95 O2 Delivery Nasal Cannula O2 Flow Rate 2.50 Capillary Refill : Height, Weight, BMI Height: 5'3.00" Weight: 181lbs. oz. 82.078785hv; 32.00 BMI Method:Stated General Appearance: No Apparent Distress, WD/WN HEENT: PERRL/EOMI, TMs Normal, Normal ENT Inspection, Pharynx Normal Neck: Full Range of Motion, Normal Inspection, Non Tender, Supple Respiratory: Chest Non Tender, Lungs Clear, Normal Breath Sounds, No Accessory Muscle Use, No Respiratory Distress Cardiovascular: Regular Rate, Rhythm, No Edema, No Gallop, No JVD, No Murmur, Normal Peripheral Pulses Gastrointestinal: Normal Bowel Sounds, No Organomegaly, No Pulsatile Mass, Non Tender, Soft Extremity: Normal Capillary Refill, Normal Inspection, Normal Range of Motion, Non Tender Neurologic/Psychiatric: Alert, Oriented x3, No Motor/Sensory Deficits, Normal Mood/Affect Skin: Normal Color, Warm/Dry Progress/Results/Core Measures Suspected Sepsis SIRS Temperature: Pulse: Respiratory Rate: Laboratory Tests 12/31/19 10:05: White Blood Count 8.1 Blood Pressure / Mean: Laboratory Tests 12/31/19 10:05: Creatinine 1.15, INR Comment 1.4, Platelet Count 290, Total Bilirubin 0.3 Results/Orders Lab Results Laboratory Tests Test 12/31/19 10:05 Range/Units White Blood Count 8.1 4.3-11.0 10^3/uL Red Blood Count 2.65 L 4.35-5.85 10^6/uL Hemoglobin 8.7 L 11.5-16.0 G/DL Hematocrit 27 L 35-52 % Mean Corpuscular Volume 100 H 80-99 FL Mean Corpuscular Hemoglobin 33 25-34 PG Mean Corpuscular Hemoglobin Concent 33 32-36 G/DL Red Cell Distribution Width 13.4 10.0-14.5 % Platelet Count 290 130-400 10^3/uL Mean Platelet Volume 8.9 7.4-10.4 FL Neutrophils (%) (Auto) 82 H 42-75 % Lymphocytes (%) (Auto) 10 L 12-44 % Monocytes (%) (Auto) 7 0-12 % Eosinophils (%) (Auto) 1 0-10 % Basophils (%) (Auto) 0 0-10 % Neutrophils # (Auto) 6.6 1.8-7.8 X 10^3 Lymphocytes # (Auto) 0.8 L 1.0-4.0 X 10^3 Monocytes # (Auto) 0.6 0.0-1.0 X 10^3 Eosinophils # (Auto) 0.1 0.0-0.3 10^3/uL Basophils # (Auto) 0.0 0.0-0.1 10^3/uL Prothrombin Time 18.1 H 12.2-14.7 SEC INR Comment 1.4 0.8-1.4 Sodium Level 124 *L 135-145 MMOL/L Potassium Level 4.9 3.6-5.0 MMOL/L Chloride Level 83 L 98-107 MMOL/L Carbon Dioxide Level 33 H 21-32 MMOL/L Anion Gap 8 5-14 MMOL/L Blood Urea Nitrogen 39 H 7-18 MG/DL Creatinine 1.15 0.60-1.30 MG/DL Estimat Glomerular Filtration Rate 45 BUN/Creatinine Ratio 34 Glucose Level 111 H 70-105 MG/DL Calcium Level 9.3 8.5-10.1 MG/DL Corrected Calcium 9.8 8.5-10.1 MG/DL Total Bilirubin 0.3 0.1-1.0 MG/DL Aspartate Amino Transf (AST/SGOT) 20 5-34 U/L Alanine Aminotransferase (ALT/SGPT) 19 0-55 U/L Alkaline Phosphatase 79 40-136 U/L Troponin I < 0.30 <0.30 NG/ML Pro-B-Type Natriuretic Peptide 4065.0 H <75.0 PG/ML Total Protein 7.2 6.4-8.2 GM/DL Albumin 3.4 3.2-4.5 GM/DL My Orders Orders - DAVID GOMEZ MD Ed Iv/Invasive Line Start (12/31/19 09:55) Cbc With Automated Diff (12/31/19 09:55) Comprehensive Metabolic Panel (12/31/19 09:55) Probnp Fs (12/31/19 09:55) Protime With Inr (12/31/19 09:55) Troponin I Fs (12/31/19 09:55) Ekg Tracing (12/31/19 09:55) Chest 1 View Ap/Pa Only (12/31/19 09:55) Lorazepam Injection (Ativan Injection) (12/31/19 10:30) Furosemide Injection (Lasix Injection) (12/31/19 10:30) Furosemide Injection (Lasix Injection) (12/31/19 10:26) Medications Given in ED Current Medications Medications Dose Ordered Sig/Mitul Route Start Time Stop Time Status Last Admin Dose Admin Furosemide 80 mg ONCE ONCE IVP 12/31/19 10:30 12/31/19 10:54 DC 12/31/19 10:35 80 MG Vital Signs/I&O 12/31/19 10:00 Temp 37.0 Pulse 72 Resp 22 B/P (MAP) 160/75 (103) Pulse Ox 95 O2 Delivery Nasal Cannula O2 Flow Rate 2.50 Capillary Refill : Progress Note : Time: 11:27 Progress Note This patient appears to have an acute exacerbation of congestive heart failure or pulmonary edema. Patient is requested be transferred to [facility] where her reservationist is. Patient has been accepted by Dr. Mendez. He will see patient upon arrival. Patient family state understanding ECG Initial ECG Impression Date: December 31, 2019 Initial ECG Impression Time: 10:04 Initial ECG Rate: 67 Initial ECG Rhythm: Normal Sinus Initial ECG Impression: Normal Departure Impression Primary Impression: Acute pulmonary edema with congestive heart failure Additional Impressions: Hyponatremia Dyspnea and respiratory abnormalities Generalized weakness Disposition: 02 XFER SHT-TRM HOSP Condition: Stable Transfer Transfer Reason: Exceeds level of care Time Spoke to Accepting Phy: 11:28 Transfer Progress Notes Patient be transferred to [facility] for acute edema and congestive heart failure. For Dr. Mendez Transfer Time: 11:28 Transfer Facility: [facility] Method of Transfer: EMS Departure-Patient Inst. Referrals: RIGO PARIKH MD (PCP/Family) Primary Care Physician DAVID GOMEZ MD December 31, 2019 09:58
[2019-12-31 10:22] LABS: HEMATOCRIT 27 % (35-52); HEMOGLOBIN 8.7 G/DL (11.5-16.0); MEAN CORPUSCULAR HEMOGLOBIN 33 PG (25-34); MEAN CORPUSCULAR HGB CONC 33 G/DL (32-36); MEAN CORPUSCULAR VOLUME 100 FL (80-99); MEAN PLATELET VOLUME 8.9 FL (7.4-10.4); PLATELET COUNT 290 10^3/uL (130-400); RED CELL DISTRIBUTION WIDTH 13.4 % (10.0-14.5); WHITE BLOOD COUNT 8.1 10^3/uL (4.3-11.0)
[2019-12-31 10:23] LABS: BASOPHILS % (AUTO) 0 % (0-10); EOSINOPHILS # (AUTO) 0.1 10^3/uL (0.0-0.3); EOSINOPHILS % (AUTO) 1 % (0-10); LYMPHOCYTES # (AUTO) 0.8 X 10^3 (1.0-4.0); LYMPHOCYTES % (AUTO) 10 % (12-44); MONOCYTES # (AUTO) 0.6 X 10^3 (0.0-1.0); MONOCYTES % (AUTO) 7 % (0-12); NEUTROPHILS # (AUTO) 6.6 X 10^3 (1.8-7.8); NEUTROPHILS % (AUTO) 82 % (42-75)
[2019-12-31] MEDS ORDERED: FUROSEMIDE 40 MG/4 ML INJ (LASIX) ONE (10:26)
--- NOTE | 2019-12-31 10:29 | Diagnostic Imaging Report ---
HISTORY: Shortness of air for 1 week. COMPARISON: 07/22/2019. TECHNIQUE: Frontal view of the chest. FINDINGS: There is increased perihilar airspace opacity as well as increased airspace and interstitial opacities throughout the lungs bilaterally. No pleural effusion or pneumothorax is seen. There is mild cardiomegaly which is stable. A cardiac surgeon is noted. There is aortic atherosclerosis. Severe degenerative changes are seen in the glenohumeral joints bilaterally. Surgical changes are seen in the right shoulder. IMPRESSION: Significantly increased interstitial and airspace opacities in the lungs bilaterally, most likely due to edema, possibly infection. Dictated by: Dictated on workstation # [id number]
[2019-12-31] MEDS ORDERED: FUROSEMIDE 40 MG/4 ML INJ (LASIX) IVP ONE (10:30)
[2019-12-31] MEDS ORDERED: LORazepam INJ 2 MG/ML (ATIVAN) VIAL IVP ONE (10:30)
[2019-12-31 10:41] LABS: PROTHROMBIN TIME PATIENT 18.1 SEC (12.2-14.7)
[2019-12-31 10:42] LABS: INR 1.4 (0.8-1.4)
[2019-12-31 10:49] LABS: CHLORIDE 83 MMOL/L (98-107); POTASSIUM 4.9 MMOL/L (3.6-5.0); SODIUM 124 MMOL/L (135-145)
[2019-12-31 10:50] LABS: BUN/CREATININE RATIO 34; CARBON DIOXIDE 33 MMOL/L (21-32); CREATININE SERUM 1.15 MG/DL (0.60-1.30); GFR ESTIMATED 45; GLUCOSE 111 MG/DL (70-105)
[2019-12-31 10:51] LABS: ALANINE AMINOTRANSFERASE 19 U/L (0-55); ALBUMIN 3.4 GM/DL (3.2-4.5); ALKALINE PHOSPHATASE 79 U/L (40-136); BILIRUBIN,TOTAL 0.3 MG/DL (0.1-1.0); CALCIUM 9.3 MG/DL (8.5-10.1); TOTAL PROTEIN 7.2 GM/DL (6.4-8.2)
--- OUTSIDE RECORDS SUMMARY | 2019-12-31 11:11 | XMS REPORT | Continuity of Care Document ---
Author Organization Unknown Address Unknown Phone Unavailable Allergies Active Description Code Type Severity Reaction Onset Reported/Identified Relationship to Patient Clinical Status Yes Sulfa (Sulfonamide Antibiotics) P49003 0491 Drug Allergy Unknown N/A 007 Yes amoxicillin [id number] Drug Aller gy Unknown rash 03/03/2019 Yes azithromycin [id number] Drug Allergy Unknown rash 03/03/2019 Yes cephalexin [id number] Drug Allerg y Unknown rash 03/03/2019 Yes clavulanic acid [id number] D rug Allergy Unknown rash 03/03/2019 Yes colchicine [id number] Drug Allerg y Unknown rash 03/03/2019 Yes CYSTEINE CYSTEINE Un known itching 03/03/2019 Yes doxycycline [id number] Drug Aller gy Unknown diarrhea 03/03/2019 Yes hydralazine [id number] Drug Aller gy Unknown headache 03/03/2019 Yes cephalexin [id number] Drug Allerg y Unknown rash, pt receiv [...] BILLY Ot T50.2X 5A ADVRS EFF OF [facility]-ANHYDR INHIBTR, BENZO 07/18/2019 SWETA MANCILLA BILLY Ot Z79.01 JAIL (CURRENT) USE OF ANTICOAGULANT 07/18/2019 SWETA MANCILLA BILLY Ot Z79.51 JAIL (CURRENT) USE OF INHALED STERO 07/18/2019 SWETA MANCILLA BILLY Ot Z79.89 9 OTHER SLIMER (CURRENT) DRUG THERAPY 07/18/2019 SWETA MANCILLA BILLY [...] BENZO 07/18/2019 BILLY SOL DO Ot Z79.01 JAIL (CURRENT) USE OF ANTICOAGULANT 07/18/2019 BILLY SOL DO Ot Z79.51 SLIMER (CURRENT) USE OF INHALED STERO 07/18/2019 BILLY SOL DO Ot Z79.89 9 OTHER JAIL (CURRENT) DRUG THERAPY 07/18/2019 BILLY SOL DO Ot Z99.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 07/22/2019 LORETTA LOWE MD Ot I11. 0 HYPERTENSIVE HEART DISEASE WITH HEART FA 07/22/2019 LORETTA LOWE MD Ot I50. 9 HEART FAILURE, UNSPECIFIED 07/22/2019 LORETTA LOWE MD Ot J44. 1 CHRONIC OBSTRUCTIVE PULMONARY DISEASE W 07/22/2019 LORETTA LOWE MD Ot M06. 9 RHEUMATOID ARTHRITIS, UNSPECIFIED 07/22/2019 LORETTA LOWE MD Ot R05 COUGH 07/22/2019 LORETTA LOWE MD Ot Z79. 01 SLIMER (CURRENT) USE OF ANTICOAGULANT 07/22/2019 LORETTA LOWE MD Ot Z79. 51 SLIMER (CURRENT) USE OF INHALED STERO 07/22/2019 LORETTA LOWE MD Ot Z88. 0 ALLERGY STATUS TO PENICILLIN 07/22/2019 LORETTA LOWE MD Ot Z88. 1 ALLERGY STATUS TO OTHER ANTIBIOTIC AGENT 07/22/2019 LORETTA LOWE MD Ot Z88. 2 ALLERGY STATUS TO SULFONAMIDES STATUS 07/22/2019 LORETTA LOWE MD Ot Z99. 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 07/27/2019 LORETTA LOWE MD Ot I11. 0 HYPERTENSIVE HEART DISEASE WITH HEART FA 07/27/2019 LORETTA LOWE MD Ot I50. 9 HEART FAILURE, UNSPECIFIED 07/27/2019 LORETTA LOWE MD Ot J44. 1 CHRONIC OBSTRUCTIVE PULMONARY DISEASE W 07/27/2019 LORETTA LOWE MD Ot M06. 9 RHEUMATOID ARTHRITIS, UNSPECIFIED 07/27/2019 LORETTA LOWE MD Ot R05 COUGH 07/27/2019 LORETTA LOWE MD Ot Z79. 01 SLIMER (CURRENT) USE OF ANTICOAGULANT 07/27/2019 LORETTA LOWE MD Ot Z79. 51 JAIL (CURRENT) USE OF INHALED STERO 07/27/2019 LORETTA [...] 07/31/2019 LORETTA LOWE MD Ot Z79. 01 JAIL (CURRENT) USE OF ANTICOAGULANT 07/31/2019 LORETTA LOWE MD Ot Z79. 51 SLIMER (CURRENT) USE OF INHALED STERO 07/31/2019 LORETTA LOWE MD Ot Z88. 0 ALLERGY STATUS TO PENICILLIN 07/31/2019 LORETTA LOWE MD Ot Z88. 1 ALLERGY STATUS TO OTHER ANTIBIOTIC AGENT 07/31/2019 LORETTA LOWE MD Ot Z88. 2 ALLERGY STATUS TO SULFONAMIDES STATUS 07/31/2019 LORETTA LOWE MD Ot Z99. 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 Procedures There is no data. Results Test Result Range CMP - 10/17/18 10:39 GLUCOSE 85 mg/dL 65-99 UREA NITROGEN (BUN) 39 mg/dL 7-25 CREATININE 1.38 mg/dL 0.60-0.88 eGFR NON-AFR. LATVIAN 35 mL/min/1.73m2 > OR = 60 eGFR [...] 7-25 CREATININE 1.30 mg/dL 0.60-0.88 eGFR NON-AFR. LATVIAN 38 mL/min/1.73m2 > OR = 60 eGFR [...] PROBNP FS - 03/03/19 11:03 [place] [address].0 pg/mL <75.0 Arterial blood gas measurement - [...] 03/03/19 12:46 Bacterial blood culture NG NRG BMP - 03/14/19 15:06 GLUCOSE 91 mg/dL 65-99 UREA NITROGEN (BUN) 78 mg/dL 7-25 CREATININE 1.89 mg/dL 0.60-0.88 eGFR NON-AFR. LATVIAN 24 mL/min/1.73m2 > OR = 60 eGFR 28 mL/min/1.73m2 > OR = 60 BUN/CREATININE RATIO 41 (calc) 6-22 SODIUM 136 mmol/L 135-146 POTASSIUM 4.7 mmol/L 3.5-5.3 CHLORIDE 91 mmol/L 98-110 CARBON DIOXIDE 40 mmol/L 20-32 CALCIUM 9.8 mg/dL 8.6-10.4 BMP - 03/29/19 14:43 GLUCOSE 83 mg/dL 65-99 UREA NITROGEN (BUN) 53 mg/dL 7-25 CREATININE 1.28 mg/dL 0.60-0.88 eGFR NON-AFR. LATVIAN 39 mL/min/1.73m2 > OR = 60 eGFR [...] 7-25 CREATININE 1.05 mg/dL 0.60-0.88 eGFR NON-AFR. LATVIAN 49 mL/min/1.73m2 > OR = 60 eGFR [...] culture - 07/14/19 20:32 Bacterial urine culture [id number] NRG COLONY COUNT 80,000 CFU/ML NRG Complete [...] 35-52 Automated erythrocyte mean corpuscular volume 107 [foz_us] 80-99 Automated erythrocyte mean corpuscular h [...] 0.0-0.1 Manual absolute plasma cell count - 1209/09 06:25 Blood monocytes/100 leukocytes 3 % NR Manual blood segmented neutrophils/100 leukocytes 84 % NRG Manual blood lymphocytes/100 leukocytes 11 % NRG Blood lymphocytes variant/100 leukocytes 2 % NRG Blood macrocytes detection by light microscopy MOD [facility] Comprehensive metabolic panel - 07/22/19 06:25 Serum [...] ligh t microscopy FEW RADHA URATES NRG LIPID PANEL - 11/09/19 11:37 CHOLESTEROL, TOTAL 163 mg/dL <200 HDL CHOLESTEROL 75 mg/dL > OR = 50 TRIGLYCERIDES 80 mg/dL <150 LDL-CHOLESTEROL 72 mg/dL (calc) NRG CHOL/HDLC RATIO 2.2 (calc) <5.0 NON HDL CHOLESTEROL 88 mg/dL (calc) <130 CMP - 11/09/19 11:37 GLUCOSE 91 mg/dL 65-99 UREA NITROGEN (BUN) 49 mg/dL 7-25 CREATININE 1.52 mg/dL 0.60-0.88 eGFR NON-AFR. LATVIAN 31 mL/min/1.73m2 > OR = 60 eGFR 36 mL/min/1.73m2 > OR = 60 BUN/CREATININE RATIO 32 (calc) 6-22 SODIUM 137 mmol/L 135-146 POTASSIUM 4.8 mmol/L 3.5-5.3 CHLORIDE 98 mmol/L 98-110 CARBON DIOXIDE 32 mmol/L 20-32 CALCIUM 9.1 mg/dL 8.6-10.4 PROTEIN, TOTAL 6.4 g/dL 6.1-8.1 ALBUMIN 3.2 g/dL 3.6-5.1 GLOBULIN 3.2 g/dL (calc) 1.9-3.7 ALBUMIN/GLOBULIN RATIO 1.0 (calc) 1.0-2. 5 BILIRUBIN, TOTAL 0.3 mg/dL 0.2-1.2 ALKALINE PHOSPHATASE 58 U/L 37-153 AST 12 U/L 10-35 ALT 7 U/L 6-29 CBC - 11/09/19 11:37 WHITE BLOOD CELL COUNT 7.2 Thousand/uL 3 .8-10.8 RED BLOOD CELL COUNT 2.68 Million/uL 3.8 0-5.10 HEMOGLOBIN 8.8 g/dL 11.7-15.5 HEMATOCRIT 26.6 % 35.0-45.0 MCV 99.3 fL 80.0-100.0 MCH 32.8 pg 27.0-33.0 MCHC 33.1 g/dL 32.0-36.0 RDW 12.7 % 11.0-15.0 PLATELET COUNT 199 Thousand/uL 140-400 MPV 9.7 fL 7.5-12.5 ABSOLUTE NEUTROPHILS 5141 cells/uL 1500- 7800 ABSOLUTE LYMPHOCYTES 1289 cells/uL 850-3 900 ABSOLUTE MONOCYTES 619 cells/uL 200-950 ABSOLUTE EOSINOPHILS 122 cells/uL 15-500 ABSOLUTE BASOPHILS 29 cells/uL 0-200 NEUTROPHILS 71.4 % NRG LYMPHOCYTES 17.9 % NRG MONOCYTES 8.6 % NRG EOSINOPHILS 1.7 % NRG BASOPHILS 0.4 % NRG Complete blood count (CBC) with automate d white blood cell (WBC) differential - 12/31/19 10:05 Blood leukocytes automated count (number/volume) 8.1 10*3/uL 4.3-11.0 Blood erythrocytes automated count (number/volume) 2.65 10*6/uL 4.35-5.85 Venous blood hemoglobin measurement (mass/volume) 8.7 g/dL 11.5-16.0 Blood hematocrit (volume fraction) 27 % 35-52 Automated erythrocyte mean corpuscular volume 100 [foz_us] 80-99 Automated erythrocyte mean corpuscular h emoglobin (mass per erythrocyte) 33 pg 25-34 Automated erythrocyte mean corpuscular h emoglobin concentration measurement (mass/volume) 33 g/dL 32-36 Automated erythrocyte distribution width ratio 13. 4 % 10.0- 14.5 Automated blood platelet count (count/volume) 290 10*3/uL 130-400 Automated blood platelet mean volume measurement 8.9 [foz_us] 7.4-10.4 Automated blood neutrophils/100 leukocytes 82 % 42-75 Automated blood lymphocytes/100 leukocytes 10 % 12-44 Blood monocytes/100 leukocytes 7 % 0-12 Automated blood eosinophils/100 leukocytes 1 % 0-10 Automated blood basophils/100 leukocytes 0 % 0-10 Blood neutrophils automated count (number/volume) 6.6 10*3 1.8-7.8 Blood lymphocytes automated count (number/volume) 0.8 10*3 1.0-4.0 Blood monocytes automated count (number/volume) 0. 6 10*3 0.0-1.0 Automated eosinophil count 0.1 10*3/uL 0 .0-0.3 Automated blood basophil count (count/volume) 0.0 10*3/uL 0.0-0.1 PT panel in platelet poor plasma by coag ulation assay - 12/31/19 10:05 Prothrombin time (PT) in platelet poor plasma by coagu lation assay 18.1 s 12.2-14.7 INR in platelet poor plasma or blood by coagulation as say 1.4 0.8-1.4 Comprehensive metabolic panel - 12/31/19 10:05 Serum or plasma sodium measurement (moles/volume) 124 mmol/L 135-145 Serum or plasma potassium measurement (moles/volume) 4.9 mmol/L 3.6-5.0 Serum or plasma chloride measurement (moles/volume) 83 mmol/L 98-107 Carbon dioxide 33 mmol/L 21-32 Serum or plasma anion gap determination (moles/volume) 8 mmol/L 5-14 Serum or plasma urea nitrogen measurement (mass/volume ) 39 mg/dL 7-18 Serum or plasma creatinine measurement (mass/volume) 1.15 mg/dL 0.60-1.30 Serum or plasma urea nitrogen/creatinine mass ratio 34 NRG Serum or plasma creatinine measurement w ith calculation of estimated glomerular filtration rate 45 NRG Serum or plasma glucose measurement (mass/volume) 111 mg/dL 70-105 Serum or plasma calcium measurement (mass/volume) 9.3 mg/dL 8.5-10.1 Serum or plasma total bilirubin measurement (mass/volu me) 0.3 mg/dL 0.1-1.0 Serum or plasma alkaline phosphatase reshma surement (enzymatic activity/volume) 79 U/L 40-136 Serum or plasma aspartate aminotransfera se measurement (enzymatic activity/volume) 20 U/L 5-34 Serum or plasma alanine aminotransferase measurement (enzymatic activity/volume) 19 U/L 0-55 Serum or plasma protein measurement (mass/volume) 7.2 g/dL 6.4-8.2 Serum or plasma albumin measurement (mass/volume) 3.4 g/dL 3.2-4.5 CALCIUM CORRECTED 9.8 mg/dL 8.5-10.1 TROPONIN I FS - 12/31/19 10:05 TROPONIN I FS < 0.30 <0.30 PROBNP FS - 12/31/19 10:05 PROBNP [place] 4065.0 pg/mL <75.0 Encounters ACCT No. Visit Date/Time Discharge Status Pt. Type Provider Facility Loc./Unit Complaint [id number] 10/03/2019 10:15:00 10/03/2019 23:59:5 9 CLS Outpatient RIGO PARIKH [facility] [id number] 11/09/2019 10:30:00 Document Registration [id number] 06/29/2019 09:30:00 Document Registration [id number] 03/29/2019 14:15:00 Document Registration [id number] 03/14/2019 15:15:00 Document Registration [id number] 01/16/2019 10:00:00 Document Registration [id number] 10/17/2018 10:15:00 Document Registration [id number] 07/22/2019 06:11:00 10:50:00 DIS Emergency CHRISSY FLETCHER, LORETTA Paredes [facility] ER FS COUGH [id number] 07/14/2019 22:29:00 15:30:00 DIS Inpatient SWETA DO, BILLY V [facility] 4TH PNA HYPOXIA ACUTE ON CH RONIC RESP FAIL HYPONATREMI [id number] 03/03/2019 10:48:00 16:10:00 DIS Emergency NEIDA FLETCHER, MICHAEL Logan [facility] ER FS SOA [id number] 12/31/2019 10:24:00 Document Registration
[2019-12-31 14:10] VITALS: BP 150/58
== END 2019-12-31 14:10 | disposition short-term general hospital (02) ==
LOC: EDUNIT# 09:46 → ER FS 09:48
DX: I11.0 Hypertensive heart disease with heart failure (principal); I50.9 Heart failure, unspecified; E87.1 Hypo-osmolality and hyponatremia; R06.00 Dyspnea, unspecified; R06.89 Other abnormalities of breathing; R53.1 Weakness; J44.9 Chronic obstructive pulmonary disease, unspecified; M06.9 Rheumatoid arthritis, unspecified; Z88.2 Allergy status to sulfonamides; Z88.0 Allergy status to penicillin; Z88.1 Allergy status to other antibiotic agents; Z79.01 Long term (current) use of anticoagulants; Z79.51 Long term (current) use of inhaled steroids; Z79.52 Long term (current) use of systemic steroids
CPT/HCPCS: 36415; 71045; 80053; 83880; 84484; 85025; 85610

== ENCOUNTER 2020-01-12 15:52 | Emergency (ER) | payer MEDICARE, OTHER ==
--- OUTSIDE RECORDS SUMMARY | 2020-01-12 15:57 | XMS REPORT | Continuity of Care Document ---
Author Organization Unknown Address Unknown Phone Unavailable Allergies Active Description Code Type Severity Reaction Onset Reported/Identified Relationship to Patient Clinical Status Yes Sulfa (Sulfonamide Antibiotics) B09797 0491 Drug Allergy Unknown N/A 007 Yes amoxicillin [id number] Drug Aller gy Unknown rash 03/03/2019 Yes azithromycin [id number] Drug Allergy Unknown rash 03/03/2019 Yes cephalexin [id number] Drug Allerg y Unknown rash 03/03/2019 Yes clavulanic acid [id number] D rug Allergy Unknown rash 03/03/2019 Yes colchicine [id number] Drug Allerg y Unknown rash 03/03/2019 Yes CYSTEINE CYSTEINE Un known itching 03/03/2019 Yes doxycycline [id number] Drug Aller gy Unknown diarrhea 03/03/2019 Yes hydralazine [id number] Drug Aller gy Unknown headache 03/03/2019 Yes cephalexin [id number] Drug Allerg y Unknown rash, pt receiv [...] Ot T50.2X 5A ADVRS EFF OF [facility]-ANHYDR INHIBTR, BENZO 07/18/2019 SWETA MANCILLA BILLY Ot Z79.01 ALF (CURRENT) USE OF ANTICOAGULANT 07/18/2019 SWETA MANCILLA BILLY Ot Z79.51 ALF (CURRENT) USE OF INHALED STERO 07/18/2019 SWETA MANCILLA BILLY Ot Z79.89 9 OTHER DRY CLEANING CHECKER (CURRENT) DRUG THERAPY 07/18/2019 SWETA MANCILLA BILLY [...] BENZO 07/18/2019 BILLY SOL DO Ot Z79.01 ALF (CURRENT) USE OF ANTICOAGULANT 07/18/2019 BILLY SOL DO Ot Z79.51 DRY CLEANING CHECKER (CURRENT) USE OF INHALED STERO 07/18/2019 BILLY SOL DO Ot Z79.89 9 OTHER ALF (CURRENT) DRUG THERAPY 07/18/2019 BILLY SOL DO [...] 07/22/2019 LORETTA LOWE MD Ot Z79. 01 DRY CLEANING CHECKER (CURRENT) USE OF ANTICOAGULANT 07/22/2019 LORETTA LOWE MD Ot Z79. 51 DRY CLEANING CHECKER (CURRENT) USE OF INHALED STERO 07/22/2019 LORETTA [...] 07/27/2019 LORETTA LOWE MD Ot Z79. 01 DRY CLEANING CHECKER (CURRENT) USE OF ANTICOAGULANT 07/27/2019 LORETTA LOWE MD Ot Z79. 51 ALF (CURRENT) USE OF INHALED STERO 07/27/2019 LORETTA [...] 07/31/2019 LORETTA LOWE MD Ot Z79. 01 ALF (CURRENT) USE OF ANTICOAGULANT 07/31/2019 LORETTA LOWE MD Ot Z79. 51 DRY CLEANING CHECKER (CURRENT) USE OF INHALED STERO 07/31/2019 LORETTA LOWE MD Ot Z88. 0 ALLERGY STATUS TO PENICILLIN 07/31/2019 LORETTA LOWE MD Ot Z88. 1 ALLERGY STATUS TO OTHER ANTIBIOTIC AGENT 07/31/2019 LORETTA LOWE MD Ot Z88. 2 ALLERGY STATUS TO SULFONAMIDES STATUS 07/31/2019 LORETTA LOWE MD Ot Z99. 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 01/02/2020 DAVID GOMEZ MD Ot E87.1 HYPO-OSMOLALITY AND HYPONATREMIA 01/02/2020 DAVID GOMEZ MD Ot I11.0 HYPERTENSIVE HEART DISEASE WITH HEART FA 01/02/2020 DAVID GOMEZ MD Ot I50.9 HEART FAILURE, UNSPECIFIED 01/02/2020 DAVID GOMEZ MD Ot J44.9 CHRONIC OBSTRUCTIVE PULMONARY DISEASE, U 01/02/2020 DAVID GOMEZ MD Ot M06.9 RHEUMATOID ARTHRITIS, UNSPECIFIED 01/02/2020 DAVID GOMEZ MD Ot R06.00 DYSPNEA, UNSPECIFIED 01/02/2020 DAVID GOMEZ MD, Ot R06.02 SHORTNESS OF BREATH 01/02/2020 DAVID GOMEZ MD, Ot R06.89 OTHER ABNORMALITIES OF BREATHING 01/02/2020 DAVID GOMEZ MD, Ot R53.1 WEAKNESS 01/02/2020 DAVID GOMEZ MD, Ot Z79.01 ALF (CURRENT) USE OF ANTICOAGULANT 01/02/2020 DAVID GOMEZ MD, Ot Z79.51 ALF (CURRENT) USE OF INHALED STERO 01/02/2020 DAVID GOMEZ MD, Ot Z79.52 ALF (CURRENT) USE OF SYSTEMIC STER 01/02/2020 DAVID GOMEZ MD, Ot Z88.0 ALLERGY STATUS TO PENICILLIN 01/02/2020 DAVID GOMEZ MD, Ot Z88.1 ALLERGY STATUS TO OTHER ANTIBIOTIC AGENT 01/02/2020 DAVID GOMEZ MD, Ot Z88.2 ALLERGY STATUS TO SULFONAMIDES STATUS Procedures There is no data. Results Test Result Range CMP - 10/17/18 10:39 GLUCOSE 85 mg/dL 65-99 UREA NITROGEN (BUN) 39 mg/dL 7-25 CREATININE 1.38 mg/dL 0.60-0.88 eGFR NON-AFR. TAIWANESE 35 mL/min/1.73m2 > OR = 60 eGFR [...] 7-25 CREATININE 1.30 mg/dL 0.60-0.88 eGFR NON-AFR. TAIWANESE 38 mL/min/1.73m2 > OR = 60 eGFR [...] PROBNP FS - 03/03/19 11:03 [place] [address].0 pg/mL <75.0 Arterial blood gas measurement - [...] 7-25 CREATININE 1.89 mg/dL 0.60-0.88 eGFR NON-AFR. TAIWANESE 24 mL/min/1.73m2 > OR = 60 eGFR 28 mL/min/1.73m2 > OR = 60 BUN/CREATININE RATIO 41 (calc) 6-22 SODIUM 136 mmol/L 135-146 POTASSIUM 4.7 mmol/L 3.5-5.3 CHLORIDE 91 mmol/L 98-110 CARBON DIOXIDE 40 mmol/L 20-32 CALCIUM 9.8 mg/dL 8.6-10.4 BMP - 03/29/19 14:43 GLUCOSE 83 mg/dL 65-99 UREA NITROGEN (BUN) 53 mg/dL 7-25 CREATININE 1.28 mg/dL 0.60-0.88 eGFR NON-AFR. TAIWANESE 39 mL/min/1.73m2 > OR = 60 eGFR [...] 7-25 CREATININE 1.05 mg/dL 0.60-0.88 eGFR NON-AFR. TAIWANESE 49 mL/min/1.73m2 > OR = 60 eGFR [...] culture - 07/14/19 20:32 Bacterial urine culture [id number] NRG COLONY COUNT 80,000 CFU/ML NRG Complete [...] 09/09 06:25 Blood monocytes/100 leukocytes 3 % NR Manual blood segmented neutrophils/100 leukocytes 84 % NR Manual blood lymphocytes/100 leukocytes 11 % NR Blood lymphocytes variant/100 leukocytes 2 % NR Blood macrocytes detection by light microscopy MOD [...] 7-25 CREATININE 1.52 mg/dL 0.60-0.88 eGFR NON-AFR. TAIWANESE 31 mL/min/1.73m2 > OR = 60 eGFR [...] CALCIUM CORRECTED 9.8 mg/dL 8.5-10.1 TROPONIN I 12/31/19 10:05 TROPONIN I FS < 0.30 <0.30 PROBNP 12/31/19 10:05 PROBNP [place] 4065.0 pg/mL <75.0 Encounters ACCT No. Visit Date/Time Discharge Status Pt. Type Provider Facility Loc./Unit Complaint [id number] 10/03/2019 10:15:00 10/03/2019 23:59:5 9 CLS Outpatient RIGO PARIKH [facility] [id number] 11/09/2019 10:30:00 Document Registration [id number] 06/29/2019 09:30:00 Document Registration [id number] 03/29/2019 14:15:00 Document Registration [id number] 03/14/2019 15:15:00 Document Registration [id number] 01/16/2019 10:00:00 Document Registration [id number] 10/17/2018 10:15:00 Document Registration [id number] 12/31/2019 09:48:00 14:10:00 DIS Outpatient JASON FLETCHER, DAVID Lam [facility] ER FS SOB [id number] 07/22/2019 06:11:00 10:50:00 DIS Emergency LORETTA LOWE MD [facility] ER FS COUGH [id number] 07/14/2019 22:29:00 11/27/2 019 15:30:00 DIS Inpatient SWETA MANCILLA, BILLY col[facility] 4TH PNA HYPOXIA ACUTE ON CH RONIC RESP FAIL HYPONATREMI [id number] 03/03/2019 10:48:00 019 16:10:00 DIS Emergency NEIDA FLETCHER, MICHAEL Logan [facility] ER FS SOA
[2020-01-12 16:26] LABS: BASOPHILS % (AUTO) 0 % (0-10); EOSINOPHILS # (AUTO) 0.2 10^3/uL (0.0-0.3); EOSINOPHILS % (AUTO) 2 % (0-10); HEMATOCRIT 27 % (35-52); HEMOGLOBIN 8.5 G/DL (11.5-16.0); LYMPHOCYTES # (AUTO) 0.9 X 10^3 (1.0-4.0); LYMPHOCYTES % (AUTO) 13 % (12-44); MEAN CORPUSCULAR HEMOGLOBIN 32 PG (25-34); MEAN CORPUSCULAR HGB CONC 32 G/DL (32-36); MEAN CORPUSCULAR VOLUME 102 FL (80-99); MEAN PLATELET VOLUME 8.4 FL (7.4-10.4); MONOCYTES # (AUTO) 0.7 X 10^3 (0.0-1.0); MONOCYTES % (AUTO) 10 % (0-12); NEUTROPHILS # (AUTO) 5.2 X 10^3 (1.8-7.8); NEUTROPHILS % (AUTO) 75 % (42-75); PLATELET COUNT 291 10^3/uL (130-400)
--- NOTE | 2020-01-12 16:35 | Diagnostic Imaging Report ---
EXAM: Chest 1 view AP/PA only. INDICATION: Shortness of breath. COMPARISON: 12/31/2019. FINDINGS: Cardiomegaly with diffuse interstitial and airspace opacities which are similar to the prior exam. No pleural effusion or pneumothorax is identified. Calcified aorta. Implanted loop recorder. No acute osseous finding. Postoperative changes in the right shoulder. Advanced degenerative changes in both shoulders. IMPRESSION: Cardiomegaly with diffuse interstitial and airspace opacities suspicious for pulmonary edema. An infectious process cannot be excluded. These findings are similar to the 12/31/2019 exam. Dictated by: Dictated on workstation # [id number]
--- NOTE | 2020-01-12 16:44 | ED Cough/URI ---
General Chief Complaint: Respiratory Problems Stated Complaint: RODRIGUE LEG SWELLING; SOB Source: patient Exam Limitations: clinical condition (exacerbations of congestive heart failure. Patient was [facility] physical impairment History of Present Illness Date Seen by Provider: January 12, 2020 Time Seen by Provider: 16:01 Initial Comments 84 yr old female presents with progressive shortness of breath over the last 3 days. Patient states that she was at a [facility] from December 30 until January 04. She was told to increase her Bumex from 1 mg a day to 1 mg twice a day yesterday but she continues to feel short of breath and feels that her lungs have fluid in them. Patient has a long-standing history of congestive heart failure she was instructed to have a low salt diet she was told to stop h er clonidine and her hydralazine and she started taking carvedilol and lisinopril her Lasix was stopped and her Bumex was added. She continues to take albuterol sulfate inhaler DuoNeb nebulizer optics abandoned 5 mg twice a day brimonidine 0.2% one drop to each eye twice a day Bumex 1 mg daily until yesterday and then was told to increase 1 mg twice a day calcium carbonate carvedilol 6.25 twice a day Fish oil fluticasone salmeterol inhaler [place]ra Prost eye drops loratadine 10 mg for allergies melatonin 5 mg 2 tablets at bedtime for insomnia MiraLAX 17 g every evening pravastatin 20 mg every evening sent to pulsate 8.6/50 mg tablet one at bedtime lisinopril was changed to 20 mg daily Timolol eyedrops trazodone acetaminophen vitamins and Zyloprim. Although the patient did have respiratory complaints I do not believe she was tested for COVID-19 has no history of fevers short of breath secondary to congestive heart failure with some pulmonary edema on physical examination. Her EKG revealed a sinus rhythm. She had what appears to be low voltage in her leads 12 and F3 and L. the patient admits that she left the hospital weighing 164 pounds and now weighs 167 pounds. As above she was told to start Bumex 1 mg twice a day starting yesterday and comes emergency room if she becomes more short of breath. The patient has given informed consent for diagnostic and therapeutic services. EKG chest x-ray and laboratory assessment has been obtained. Timing/Duration: getting worse, other (patient has been getting worse since 3 days ago and was discharged from 6 days ago) Severity/Quality: moderate, dry cough, other (patient has a long-standing history of COPD but it appears that much of her respiratory changes are secondary to fluid retention in the lungs) Prior Episodes/Possible Cause: frequent episodes (and was at the [facility] just 6 days ago) Modifying Factors: Improves With Albuterol Inhaler, Improves With Albuterol Nebulizer, Improves With Coughing, Improves With Lying Down Associated Symptoms: cough, dizziness, muscle aches, shortness of breath, wheezing Allergies and Home Medications Allergies Coded Allergies: Sulfa (Sulfonamide Antibiotics) (Unverified Allergy, Unknown, 09/08/06) amoxicillin (Verified Allergy, Unknown, rash, 03/03/19) azithromycin (Verified Allergy, Unknown, rash, 03/03/19) cephalexin (Verified Allergy, Unknown, rash, pt received Cefepime w/o issue, 07/18/19) clavulanic acid (Verified Allergy, Unknown, rash, 03/03/19) colchicine (Verified Allergy, Unknown, rash, 03/03/19) doxycycline (Verified Adverse Reaction, Unknown, diarrhea, 03/03/19) hydralazine (Verified Adverse Reaction, Unknown, headache, 03/03/19) Uncoded Allergies: CYSTEINE (Allergy, Unknown, itching, 03/03/19) Home Medications Acetaminophen 500 Mg Tablet, 1,000 MG PO Q6H PRN for PAIN-MILD (1-4), (Reported) Albuterol Sulfate 90 Mcg Aer.pow.ba, 2 PUFF IH Q6H, (Reported) Allopurinol 300 Mg Tablet, 150 MG PO HS, (Reported) TAKES 1/2 OF A 300MG TAB TO EQUAL 150MG Apixaban 5 Mg Tablet, 5 MG PO BID, (Reported) Benzonatate 100 Mg Capsule, 200 MG PO TID Prescribed by: BILLY SOL on 07/18/19 0944 Brimonidine Tartrate/Timolol 5 Ml Drops, 1 DROP OU BID, (Reported) Calcium Carbonate/Vitamin D3 1 Each Tablet, 1 EACH PO DAILY, (Reported) Carvedilol 6.25 Mg Tablet, 6.25 MG PO BID, (Reported) Cefdinir 300 Mg Capsule, 300 MG PO BID Prescribed by: BILLY SOL on 07/18/19 09 Fluticasone/Salmeterol 12 Gm Hfa.aer.ad, 2 PUFF IH BID@ Prescribed by: BILLY SOL on 07/18/19943 Furosemide 20 Mg Tablet, 20 MG PO DAILY, (Reported) Hydralazine HCl 25 Mg Tablet, 25 MG PO BID, (Reported) Ipratropium/Albuterol Sulfate 3 Ml Ampul.neb, 3 ML NEB Q8H, (Reported) Latanoprost/Pf 7.5 Ml Drops, 1 DROP OU HS, (Reported) ONE DROP BOTH EYES Lisinopril 40 Mg Tablet, 40 MG PO 1800, (Reported) Loratadine 10 Mg Tablet, 10 MG PO DAILY, (Reported) Melatonin 5 Mg Tab.ir.er, 10 MG PO HS, (Reported) TAKES 2 (5MG) TABS Multivitamin with Minerals 1 Each Tablet, 1 EACH PO DAILY, (Reported) [place] 3 Polyunsat Fatty Acids 1,000 Mg Cap, 1,000 MG PO DAILY, (Reported) Pravastatin Sodium 20 Mg Tablet, 20 MG PO HS, (Reported) Prednisone 10 Mg Tab.ds.pk, 10 MG PO DAILY Take 4 tabs(60mg)daily,decrease by 1 tab(10MG)daily. Prescribed by: BILLY SOL on 07/18/19943 Promethazine HCl/Codeine 5 Ml Syrup, 5 ML PO Q6H PRN for COUGH, (Reported) PICKED UP 120ML ON 07-12-2019 Trazodone HCl 50 Mg Tablet, 25 MG PO HS PRN for INSOMNIA, (Reported) TAKES 1/2 OF A 50MG TAB TO EQUAL 25MG Patient Home Medication List Home Medication List Reviewed: Yes Review of Systems Review of Systems Constitutional: see HPI, weakness, other (coughing consistent with congestive heart failure) EENTM: see HPI, no symptoms reported Respiratory: see HPI, cough, dyspnea on exertion, short of breath, wheezing, other (history of COPD and has fluid retention with some pulmonary edema) Cardiovascular: see HPI, edema, syncope Gastrointestinal: no symptoms reported Genitourinary: no symptoms reported Musculoskeletal: see HPI, muscle stiffness, muscle weakness Skin: no symptoms reported (but some increase in edema) Psychiatric/Neurological: Anxiety Hematologic/Lymphatic: No Symptoms Reported Immunological/Allergic: see HPI, grass allergy, pollen allergy Past Ihixfnz-Narapm-Jehnvb Hx Past Med/Social Hx: Reviewed Nursing Past Med/Soc Hx Patient Social History Alcohol Use: Denies Use Recreational Drug Use: No Smoking Status: Never a Smoker 2nd Hand Smoke Exposure: No Recent Foreign Travel: No Contact w/Someone Who Travel: No Recent Hopitalizations: No ([facility] 12/31/19-01/06/20) Physical Abuse: No Sexual Abuse: No Mistreated: No Fear: No Immunizations Up To Date Date of Influenza Vaccine: May 22, 2019 Seasonal Allergies Seasonal Allergies: No Past Medical History Surgeries: Yes Breast, Orthopedic Respiratory: Yes Pneumonia, COPD Cardiac: Yes Hypertension, Irregular Heartbeat Neurological: Yes (brain bleed) Genitourinary: No Renal Failure Gastrointestinal: No Musculoskeletal: Yes Rheumatoid Arthritis Endocrine: No HEENT: No Cancer: No Psychosocial: No Integumentary: No Family Medical History Reviewed Nursing Family Hx Physical Exam Vital Signs - First Documented 01/12/20 15:58 Temp 37.6 Pulse 77 Resp 20 B/P (MAP) 144/72 (96) Pulse Ox 95 O2 Delivery Room Air O2 Flow Rate 3.00 Capillary Refill : Height: 5'3.00" Weight: 181lbs. oz. 82.211358ez; 29.00 BMI Method:Stated General Appearance: moderate distress (patient says she left the hospital weighing 164 and says she now weighs 167 per weight was 181) Eyes: Bilateral Eye Normal Inspection, Bilateral Eye PERRL, Bilateral Eye EOMI HEENT: PERRL/EOMI, normal ENT inspection, pharynx normal, other (history of glaucoma) Neck: non-tender (with slight decreased range of motion secondary to DJD), normal inspection (for age) Respiratory: respiratory distress, rales, rhonchi, wheezing, expiration, inspiration Cardiovascular: regular rate, rhythm, no gallop, JVD, systolic murmur Gastrointestinal: normal bowel sounds, non tender, soft, no organomegaly, no pulsatile mass Neurologic/Psychiatric: it operations analyst II-XII nml as tested, no motor/sensory deficits, alert, normal mood/affect (with elevation and anxiety), oriented x 3 Skin: normal color, warm/dry Lymphatic: no adenopathy Progress/Results/Core Measures Suspected Sepsis SIRS Temperature: Pulse: Respiratory Rate: Laboratory Tests 5/23/20 16:09: White Blood Count 7.0 Blood Pressure / Mean: Laboratory Tests 01/12/20 16:09: Creatinine 1.44H, Platelet Count 291, Total Bilirubin 0.2 Results/Orders Lab Results Laboratory Tests Test 01/12/20 16:09 01/12/20 17:25 Range/Units White Blood Count 7.0 4.3-11.0 10^3/uL Red Blood Count 2.64 L 4.35-5.85 10^6/uL Hemoglobin 8.5 L 11.5-16.0 G/DL Hematocrit 27 L 35-52 % Mean Corpuscular Volume 102 H 80-99 FL Mean Corpuscular Hemoglobin 32 25-34 PG Mean Corpuscular Hemoglobin Concent 32 32-36 G/DL Red Cell Distribution Width 13.0 10.0-14.5 % Platelet Count 291 130-400 10^3/uL Mean Platelet Volume 8.4 7.4-10.4 FL Neutrophils (%) (Auto) 75 42-75 % Lymphocytes (%) (Auto) 13 12-44 % Monocytes (%) (Auto) 10 0-12 % Eosinophils (%) (Auto) 2 0-10 % Basophils (%) (Auto) 0 0-10 % Neutrophils # (Auto) 5.2 1.8-7.8 X 10^3 Lymphocytes # (Auto) 0.9 L 1.0-4.0 X 10^3 Monocytes # (Auto) 0.7 0.0-1.0 X 10^3 Eosinophils # (Auto) 0.2 0.0-0.3 10^3/uL Basophils # (Auto) 0.0 0.0-0.1 10^3/uL Neutrophils % (Manual) 63 % Lymphocytes % (Manual) 16 % Monocytes % (Manual) 10 % Eosinophils % (Manual) 2 % Basophils % (Manual) 1 % Myelocytes % 1 % Band Neutrophils 7 % Hypochromasia 1+ Macrocytosis 2+ Sodium Level 127 L 135-145 MMOL/L Potassium Level 5.9 H 3.6-5.0 MMOL/L Chloride Level 83 L 98-107 MMOL/L Carbon Dioxide Level 37 H 21-32 MMOL/L Anion Gap 7 5-14 MMOL/L Blood Urea Nitrogen 48 H 7-18 MG/DL Creatinine 1.44 H 0.60-1.30 MG/DL Estimat Glomerular Filtration Rate 35 BUN/Creatinine Ratio 33 Glucose Level 105 70-105 MG/DL Calcium Level 9.4 8.5-10.1 MG/DL Corrected Calcium 10.0 8.5-10.1 MG/DL Total Bilirubin 0.2 0.1-1.0 MG/DL Aspartate Amino Transf (AST/SGOT) 13 5-34 U/L Alanine Aminotransferase (ALT/SGPT) 11 0-55 U/L Alkaline Phosphatase 67 40-136 U/L Troponin I < 0.30 <0.30 NG/ML Pro-B-Type Natriuretic Peptide 6024.0 H <75.0 PG/ML Total Protein 7.1 6.4-8.2 GM/DL Albumin 3.2 3.2-4.5 GM/DL Urine Color YELLOW Urine Clarity SL CLOUDY Urine pH 6.0 5-9 Urine Specific [place] 1.010 L 1.016-1.022 Urine Protein NEGATIVE NEGATIVE Urine Glucose (UA) NEGATIVE NEGATIVE Urine Ketones NEGATIVE NEGATIVE Urine Nitrite NEGATIVE NEGATIVE Urine Bilirubin NEGATIVE NEGATIVE Urine Urobilinogen 0.2 < = 1.0 MG/DL Urine Leukocyte Esterase 3+ H NEGATIVE Urine RBC (Auto) 1+ H NEGATIVE Urine RBC 10-25 H /HPF Urine WBC 50-100 H /HPF Urine Squamous Epithelial Cells 25-50 H /HPF Urine Crystals NONE /LPF Urine Bacteria FEW H /HPF Urine Casts PRESENT /LPF Urine Hyaline Casts 5-10 H /LPF Urine Mucus NEGATIVE /LPF Urine Culture Indicated YES My Orders Orders - JOSH ABDUL H DO Ekg Tracing (01/12/20 16:07) Chest 1 View Ap/Pa Only (01/12/20 16:07) Cbc And Manual Diff (01/12/20 16:07) Comprehensive Metabolic Panel (01/12/20 16:07) Urinalysis (01/12/20 16:07) Probnp Fs (01/12/20 16:56) Troponin I Fs (01/12/20 16:56) D5w 100 Ml Ivpb (De... W/Bumetanide Inje (01/12/20 17:04) Urine Culture (01/12/20 17:25) Bumetanide Injection (Bumex Injection) (01/12/20 17:38) Bumetanide Injection (Bumex Injection) (01/12/20 17:49) Medications Given in ED Current Medications Medications Dose Ordered Sig/Mitul Route Start Time Stop Time Status Last Admin Dose Admin Bumetanide 2.5 mg STK-MED ONCE .ROUTE 01/12/20 17:38 01/12/20 17:46 DC 01/12/20 18:06 1 MG Vital Signs/I&O 01/12/20 15:58 Temp 37.6 Pulse 77 Resp 20 B/P (MAP) 144/72 (96) Pulse Ox 95 O2 Delivery Room Air O2 Flow Rate 3.00 Capillary Refill : Progress Note : Time: 17:28 Progress Note 84-year-old female has a actual weight of 169 5 weight gain over the past 6 days. She has started a second dose of Bumex yesterday and today however she is continuing to feel more and more fluid congested. Chest x-ray shows pulmonary edema does not have any findings consistent with infection. Patient is getting 1 mg of Bumex IV. Family is aware that if the patient does not have significant improvement with diuresis she may need to be reevaluated and admitted her wants her readmitted to [facility] if that decision has been made. Labs still pending daughter has explained the patient's past treatment from December 30 to January 05 [facility]. ECG Initial ECG Impression Date: January 12, 2020 Initial ECG Impression Time: 16:09 Initial ECG Rate: 59 Initial ECG Rhythm: Normal Sinus Initial ECG Intervals: Normal Departure Impression Primary Impression: Debility Additional Impressions: Renal insufficiency Hyponatremia Hyperkalemia Acute on chronic congestive heart failure with left ventricular diastolic dysfunction Chronic anemia Pulmonary edema Disposition: ADMITTED INPATIENT Condition: Improved Admissions Decision to Admit Reason: Admit from ER (General) Transfer Transfer Reason: Patient preference (patient and daughter insists being transferred to [facility] for continued evaluation and care by Dr. Archer) Time Spoke to Accepting Phy: 18:50 Transfer Progress Notes [facility] triage nurse states patient has been accepted and he'll contact Dr. Handy's team. Daughter was contacted and she is in full agreement with transfer to . Patient is being admitted secondary to inability renal insufficiency hyponatremia hyperkalemia acute on chronic congestive heart failure pulmonary edema and progressive weakening despite intervention services. BNP is increased from 4000 to 6000 over the past 10 days. Creatinine has increased from 1.[address] Lemus has accepted patient at 2110 Transfer Time: 19:14 Transfer Facility: [facility] Method of Transfer: EMS Departure-Patient Inst. Decision time for Depature: 19:14 Referrals: RIGO PARIKH MD (PCP/Family) Primary Care Physician Patient Instructions: Anemia of Chronic Disease, Chronic Kidney Disease, Generalized Weakness (DC), Heart Failure, Adult (DC), Hyperkalemia (DC) Add. Discharge Instructions: Dr Lemus has accepted the patient had [facility] at 2110 All discharge instructions reviewed with patient and/or family. Voiced understanding. Copy Copies To 1: [facility]/JOSH CALDERON DO January 12, 2020 16:44
[2020-01-12 16:54] LABS: BILIRUBIN,TOTAL 0.2 MG/DL (0.1-1.0); CALCIUM 9.4 MG/DL (8.5-10.1); CREATININE SERUM 1.44 MG/DL (0.60-1.30); POTASSIUM 5.9 MMOL/L (3.6-5.0)
[2020-01-12 16:55] LABS: ALBUMIN 3.2 GM/DL (3.2-4.5); TOTAL PROTEIN 7.1 GM/DL (6.4-8.2)
[2020-01-12] MEDS ORDERED: BUMETANIDE IV STA (17:04)
[2020-01-12] MEDS ORDERED: D5W IV STA (17:04)
[2020-01-12 17:11] LABS: BAND NEUTROPHILS 7 %; BASOPHILS % (MANUAL) 1 %; EOSINOPHILS % (MANUAL) 2 %; HYPOCHROMASIA 1+; LYMPHOCYTES % (MANUAL) 16 %; MONOCYTES % (MANUAL) 10 %; MYELOCYTES % 1 %; NEUTROPHILS % (MANUAL) 63 %
[2020-01-12] MEDS ORDERED: BUMETANIDE 2.5 MG/10 ML (BUMEX) VIAL ONE ×2 (17:38→17:49)
[2020-01-12 17:43] LABS: CLARITY,URINE SL CLOUDY; COLOR,URINE YELLOW; GLUCOSE, URINE (UA) NEGATIVE (NEGATIVE); PROTEIN,URINE NEGATIVE (NEGATIVE)
[2020-01-12 17:44] LABS: BACTERIA,URINE FEW /HPF; BILIRUBIN,URINE NEGATIVE (NEGATIVE); KETONES,URINE NEGATIVE (NEGATIVE); LEUKOCYTE ESTERASE ,URINE 3+ (NEGATIVE); NITRITE,URINE NEGATIVE (NEGATIVE); SQUAMOUS EPITHELIAL CELL,UR 25-50 /HPF; WBC,URINE 50-100 /HPF
[2020-01-12 19:40] VITALS: BP 148/63
== END 2020-01-12 20:36 | disposition short-term general hospital (02) ==
LOC: EDUNIT# 15:52 → ER FS 15:53
DX: I11.0 Hypertensive heart disease with heart failure (principal); I50.33 Acute on chronic diastolic (congestive) heart failure; R53.81 Other malaise; N28.9 Disorder of kidney and ureter, unspecified; E87.1 Hypo-osmolality and hyponatremia; E87.5 Hyperkalemia; D64.9 Anemia, unspecified; J44.9 Chronic obstructive pulmonary disease, unspecified; Z88.2 Allergy status to sulfonamides; Z88.0 Allergy status to penicillin; Z88.1 Allergy status to other antibiotic agents; Z88.8 Allergy status to other drugs, medicaments and biological substances; Z79.01 Long term (current) use of anticoagulants; Z79.51 Long term (current) use of inhaled steroids
CPT/HCPCS: 36415; 71045; 80053; 81000; 83880; 84484; 85007; 85027; 87088; 93005

== ENCOUNTER 2020-03-22 19:46 | Emergency (ER) | payer MEDICARE, OTHER ==
[~2020-03-22] VITALS: Ht 160 cm; Wt 68.4 kg
--- OUTSIDE RECORDS SUMMARY | 2020-03-22 19:53 | XMS REPORT | Continuity of Care Document ---
Author Organization Unknown Address Unknown Phone Unavailable Allergies Active Description Code Type Severity Reaction Onset Reported/Identified Relationship to Patient Clinical Status Yes Sulfa (Sulfonamide Antibiotics) [id number] Drug Allergy Unknown N/A 007 Yes amoxicillin [id number] Drug Aller gy Unknown rash 03/03/2019 Yes azithromycin [id number] Drug Allergy Unknown rash 03/03/2019 Yes cephalexin [id number] Drug Allerg y Unknown rash 03/03/2019 Yes clavulanic acid [id number] D rug Allergy Unknown rash 03/03/2019 Yes colchicine [id number] Drug Allerg y Unknown rash 03/03/2019 Yes CYSTEINE CYSTEINE Un known itching 03/03/2019 Yes doxycycline [id number] Drug Aller gy Unknown diarrhea 03/03/2019 Yes hydralazine [id number] Drug Aller gy Unknown headache 03/03/2019 Yes cephalexin [id number] Drug Allerg y Unknown rash, pt receiv [...] 2 ALLERGY STATUS TO SULFONAMIDES STATUS 03/08/2019 IMCHAEL CARRASQUILLO MD Ot Z88. 8 ALLERGY STATUS [...] BILLY Ot T50.2X 5A ADVRS EFF OF [facility]-ANHYDR INHIBTR, BENZO 07/18/2019 SWETA MANCILLA BILLY Ot Z79.01 SKILLED NURSING (CURRENT) USE OF ANTICOAGULANT 07/18/2019 SWETA MANCILLA BILLY Ot Z79.51 SKILLED NURSING (CURRENT) USE OF INHALED STERO 07/18/2019 SWETA MANCILLA BILLY Ot Z79.89 9 OTHER SKILLED NURSING (CURRENT) DRUG THERAPY 07/18/2019 SWETA MANCILLA BILLY [...] BENZO 07/18/2019 BILLY SOL DO Ot Z79.01 BUOY TENDER (CURRENT) USE OF ANTICOAGULANT 07/18/2019 BILLY SOL DO Ot Z79.51 BUOY TENDER (CURRENT) USE OF INHALED STERO 07/18/2019 BILLY SOL DO Ot Z79.89 9 OTHER SKILLED NURSING (CURRENT) DRUG THERAPY 07/18/2019 BILLY SOL DO [...] 07/22/2019 LORETTA LOWE MD Ot Z79. 01 BUOY TENDER (CURRENT) USE OF ANTICOAGULANT 07/22/2019 LORETTA LOWE MD Ot Z79. 51 BUOY TENDER (CURRENT) USE OF INHALED STERO 07/22/2019 LORETTA [...] 07/27/2019 LORETTA LOWE MD Ot Z79. 01 BUOY TENDER (CURRENT) USE OF ANTICOAGULANT 07/27/2019 LORETTA LOWE MD Ot Z79. 51 SKILLED NURSING (CURRENT) USE OF INHALED STERO 07/27/2019 LORETTA [...] 07/31/2019 LORETTA LOWE MD Ot Z79. 01 SKILLED NURSING (CURRENT) USE OF ANTICOAGULANT 07/31/2019 LORETTA LOWE MD Ot Z79. 51 SKILLED NURSING (CURRENT) USE OF INHALED STERO 07/31/2019 LORETTA LOWE MD Ot Z88. 0 ALLERGY STATUS TO PENICILLIN 07/31/2019 LORETTA LOWE MD Ot Z88. 1 ALLERGY STATUS TO OTHER ANTIBIOTIC AGENT 07/31/2019 LORETTA LOWE MD Ot Z88. 2 ALLERGY STATUS TO SULFONAMIDES STATUS 07/31/2019 LORETTA LOWE MD Ot Z99. 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 12/31/2019 DAVID GOMEZ MD Ot E87.1 HYPO-OSMOLALITY AND HYPONATREMIA 12/31/2019 DAVID GOMEZ MD Ot I11.0 HYPERTENSIVE HEART DISEASE WITH HEART FA 12/31/2019 DAVID GOMEZ MD Ot I50.9 HEART FAILURE, UNSPECIFIED 12/31/2019 DAVID GOMEZ MD Ot J44.9 CHRONIC OBSTRUCTIVE PULMONARY DISEASE, U 12/31/2019 DAVID GOMEZ MD Ot M06.9 RHEUMATOID ARTHRITIS, UNSPECIFIED 12/31/2019 DAVID GOMEZ MD Ot R06.00 DYSPNEA, UNSPECIFIED 12/31/2019 DAVID GOMEZ MD Ot R06.02 SHORTNESS OF BREATH 12/31/2019 DAVID GOMEZ MD Ot R06.89 OTHER ABNORMALITIES OF BREATHING 12/31/2019 DAVDI GOMEZ MD Ot R53.1 WEAKNESS 12/31/2019 DAVID GOMEZ MD, Ot Z79.01 SKILLED NURSING (CURRENT) USE OF ANTICOAGULANT 12/31/2019 DAVID GOMEZ MD, Ot Z79.51 SKILLED NURSING (CURRENT) USE OF INHALED STERO 12/31/2019 DAVID GOMEZ MD, Ot Z79.52 SKILLED NURSING (CURRENT) USE OF SYSTEMIC STER 12/31/2019 DAVID GOMEZ MD, Ot Z88.0 ALLERGY STATUS TO PENICILLIN 12/31/2019 DAVID GOMEZ MD Ot Z88.1 ALLERGY STATUS TO OTHER ANTIBIOTIC AGENT 12/31/2019 DAVID GOMEZ MD, Ot Z88.2 ALLERGY STATUS TO SULFONAMIDES STATUS 01/02/2020 DAVID GOMEZ MD Ot E87.1 HYPO-OSMOLALITY AND HYPONATREMIA 01/02/2020 DAVID GOMEZ MD Ot I11.0 HYPERTENSIVE HEART DISEASE WITH HEART FA 01/02/2020 DAVID GOMEZ MD, Ot I50.9 HEART FAILURE, UNSPECIFIED 01/02/2020 DAVID GOMEZ MD, Ot J44.9 CHRONIC OBSTRUCTIVE PULMONARY DISEASE, U 01/02/2020 DAVID GOMEZ MD Ot M06.9 RHEUMATOID ARTHRITIS, UNSPECIFIED 01/02/2020 DAVID GOMEZ MD Ot R06.00 DYSPNEA, UNSPECIFIED 01/02/2020 DAVID GOMEZ MD Ot R06.02 SHORTNESS OF BREATH 01/02/2020 DAVID GOMEZ MD Ot R06.89 OTHER ABNORMALITIES OF BREATHING 01/02/2020 DAVID GOMEZ MD Ot R53.1 WEAKNESS 01/02/2020 DAVID GOMEZ MD Ot Z79.01 SKILLED NURSING (CURRENT) USE OF ANTICOAGULANT 01/02/2020 DAVID GOMEZ MD Ot Z79.51 SKILLED NURSING (CURRENT) USE OF INHALED STERO 01/02/2020 DAVID GOMEZ MD Ot Z79.52 BUOY TENDER (CURRENT) USE OF SYSTEMIC STER 01/02/2020 DAVID GOMEZ MD Ot Z88.0 ALLERGY STATUS TO PENICILLIN 01/02/2020 DAVID GOMEZ MD Ot Z88.1 ALLERGY STATUS TO OTHER ANTIBIOTIC AGENT 01/02/2020 DAVID GOMEZ MD Ot Z88.2 ALLERGY STATUS TO SULFONAMIDES STATUS 01/12/2020 [facility], JOSH Meier Ot D64.9 ANEMIA, UNSPECIFIED 01/12/2020 [facility], JOSH Meier Ot E87.1 HYPO-OSMOLALITY AND HYPONATREMIA 01/12/2020 [facility], JOSH H Ot E87.5 HYPERKALEMIA 01/12/2020 [facility], JOSH H Ot I11.0 HYPERTENSIVE HEART DISEASE WITH HEART FA 01/12/2020 [facility], JOSH H Ot I50.33 ACUTE ON CHRONIC DIASTOLIC (CONGESTIVE) 01/12/2020 [facility], JOSH Meier Ot J44.9 CHRONIC OBSTRUCTIVE PULMONARY DISEASE, U 01/12/2020 [facility], JOSH Meier Ot N28.9 DISORDER OF KIDNEY AND URETER, UNSPECIFI 01/12/2020 [facility], JOSH H Ot R53.81 OTHER MALAISE 01/12/2020 [facility], JOSH H Ot Z79.01 BUOY TENDER (CURRENT) USE OF ANTICOAGULANT 01/12/2020 [facility], JOSH H Ot Z79.51 SKILLED NURSING (CURRENT) USE OF INHALED STERO 01/12/2020 [facility], JOSH Meier Ot Z88.0 ALLERGY STATUS TO PENICILLIN 01/12/2020 [facility], JOSH H Ot Z88.1 ALLERGY STATUS TO OTHER ANTIBIOTIC AGENT 01/12/2020 [facility], JOSH Meier Ot Z88.2 ALLERGY STATUS TO SULFONAMIDES STATUS 01/12/2020 [facility], JOSH H Ot Z88.8 ALLERGY STATUS TO OTH DRUG/MEDS/BIOL SUB 01/16/2020 [facility], JOSH Meier Ot D64.9 ANEMIA, UNSPECIFIED 01/16/2020 [facility], JOSH H Ot E87.1 HYPO-OSMOLALITY AND HYPONATREMIA 01/16/2020 [facility], JOSH H Ot E87.5 HYPERKALEMIA 01/16/2020 [facility], JOSH H Ot I11.0 HYPERTENSIVE HEART DISEASE WITH HEART FA 01/16/2020 [facility], JOSH H Ot I50.33 ACUTE ON CHRONIC DIASTOLIC (CONGESTIVE) 01/16/2020 [facility], JOSH Meier Ot J44.9 CHRONIC OBSTRUCTIVE PULMONARY DISEASE, U 01/[facility] Ot N28.9 DISORDER OF KIDNEY AND URETER, UNSPECIFI 01/16/2020 [facility], JOSH Meier Ot R53.81 OTHER MALAISE 01/16/2020 [facility], JOSH Meier Ot Z79.01 SKILLED NURSING (CURRENT) USE OF ANTICOAGULANT 01/16/2020[facility] , JOSH Meier Ot Z79.51 SKILLED NURSING (CURRENT) USE OF INHALED STERO 01/[facility] Ot Z88.0 ALLERGY STATUS TO PENICILLIN 01/16/2020 [facility], JOSH Meier Ot Z88.1 ALLERGY STATUS TO OTHER ANTIBIOTIC AGENT 01/16/2020 [facility], JOSH Meier Ot Z88.2 ALLERGY STATUS TO SULFONAMIDES STATUS 01/16/2020 [facility] Z[facility].8 ALLERGY STATUS TO OTH DRUG/MEDS/BIOL SUB [facility] Meier Ot D64.9 ANEMIA, UNSPECIFIED 01/19/2020 [facility], JOSH Meier Ot E87.1 HYPO-OSMOLALITY AND HYPONATREMIA 01/19/2020 [facility], JOSH Meier Ot E87.5 HYPERKALEMIA 01/19/2020 [facility], JOSH Meier Ot I11.0 HYPERTENSIVE HEART DISEASE WITH HEART FA 01/19/2020 [facility], JOSH Meier Ot I50.33 ACUTE ON CHRONIC DIASTOLIC (CONGESTIVE) 01/19/2020 [facility], JOSH Meier Ot J44.9 CHRONIC OBSTRUCTIVE PULMONARY DISEASE, U 01/19/2020 [facility], JOSH Meier Ot N28.9 DISORDER OF KIDNEY AND URETER, UNSPECIFI 01/19/[facility] J[facility] Meier Ot R53.81 OTHER MALAISE 01/19/2020 [facility], JOSH Meier Ot Z79.01 BUOY TENDER (CURRENT) USE OF ANTICOAGULANT 01/19/2020 [facility], JOSH Meier Ot Z79.51 SKILLED NURSING (CURRENT) USE OF INHALED STERO 01/19/2020 [facility], JOSH Meier Ot Z88.0 ALLERGY STATUS TO PENICILLIN 01/19/2020[facility] DO JOSH Meier Ot Z88.1 ALLERGY STATUS TO OTHER ANTIBIOTIC AGENT 01/19/2020 [facility] DO JOSH Meier Ot Z88.2 ALLERGY STATUS TO SULFONAMIDES STATUS 01/19/2020 [facility] DO JOSH Meier Ot Z88.8 ALLERGY STATUS TO OTH DRUG/MEDS/BIOL SUB Procedures There is no data. Results Test Result Range CMP - 10/17/18 10:39 GLUCOSE 85 mg/dL 65-99 UREA NITROGEN (BUN) 39 mg/dL 7-25 CREATININE 1.38 mg/dL 0.60-0.88 eGFR NON-AFR. MACEDONIAN 35 mL/min/1.73m2 > OR = 60 eGFR [...] 7-25 CREATININE 1.30 mg/dL 0.60-0.88 eGFR NON-AFR. MACEDONIAN 38 mL/min/1.73m2 > OR = 60 eGFR [...] PROBNP FS - 03/03/19 11:03 [place] [address].0 pg/mL <75.0 Arterial blood gas measurement - [...] 7-25 CREATININE 1.89 mg/dL 0.60-0.88 eGFR NON-AFR. MACEDONIAN 24 mL/min/1.73m2 > OR = 60 eGFR 28 mL/min/1.73m2 > OR = 60 BUN/CREATININE RATIO 41 (calc) 6-22 SODIUM 136 mmol/L 135-146 POTASSIUM 4.7 mmol/L 3.5-5.3 CHLORIDE 91 mmol/L 98-110 CARBON DIOXIDE 40 mmol/L 20-32 CALCIUM 9.8 mg/dL 8.6-10.4 [facility] - 03/29/19 14:43 GLUCOSE 83 mg/dL 65-99 UREA NITROGEN (BUN) 53 mg/dL 7-25 CREATININE 1.28 mg/dL 0.60-0.88 eGFR NON-AFR. MACEDONIAN 39 mL/min/1.73m2 > OR = 60 eGFR [...] 7-25 CREATININE 1.05 mg/dL 0.60-0.88 eGFR NON-AFR. MACEDONIAN 49 mL/min/1.73m2 > OR = 60 eGFR [...] culture - 07/14/19 20:32 Bacterial urine culture [id number] NRG COLONY COUNT 80,000 CFU/ML NRG Complete [...] NRG Blood lymphocytes variant/100 leukocytes 2 % NR Blood macrocytes detection by light microscopy MOD [facility] Comprehensive metabolic panel - 07/22/19 [...] by ligh t microscopy FEW RADHA URATES NR LIPID PANEL - 11/09/19 11:37 CHOLESTEROL, TOTAL 163 mg/dL <200 HDL CHOLESTEROL 75 mg/dL > OR = 50 TRIGLYCERIDES 80 mg/dL <150 LDL-CHOLESTEROL 72 mg/dL (calc) NRG CHOL/HDLC RATIO 2.2 (calc) <5.0 NON HDL CHOLESTEROL 88 mg/dL (calc) <130 CMP - 11/09/19 11:37 GLUCOSE 91 mg/dL 65-99 UREA NITROGEN (BUN) 49 mg/dL 7-25 CREATININE 1.52 mg/dL 0.60-0.88 eGFR NON-AFR. MACEDONIAN 31 mL/min/1.73m2 > OR = 60 eGFR [...] 12/31/19 10:05 [place]OB[place] 4065.0 pg/mL <75.0 Blood CBC with ordered manual differenti al panel - 01/12/20 16:09 Blood leukocytes automated count (number/volume) 7.0 10*3/uL 4.3-11.0 Blood erythrocytes automated count (number/volume) 2.64 10*6/uL 4.35-5.85 Venous blood hemoglobin measurement (mass/volume) 8.5 g/dL 11.5-16.0 Blood hematocrit (volume fraction) 27 % 35-52 Automated erythrocyte mean corpuscular volume 102 [foz_us] 80-99 Automated erythrocyte mean corpuscular h emoglobin (mass per erythrocyte) 32 pg 25-34 Automated erythrocyte mean corpuscular h emoglobin concentration measurement (mass/volume) 32 g/dL 32-36 Automated erythrocyte distribution width ratio 13. 0 % 10.0- 14.5 Automated blood platelet count (count/volume) 291 10*3/uL 130-400 Automated blood platelet mean volume measurement 8.4 [foz_us] 7.4-10.4 Automated blood neutrophils/100 leukocytes 75 % 42-75 Automated blood lymphocytes/100 leukocytes 13 % 12-44 Blood monocytes/100 leukocytes 10 % NRG Automated blood eosinophils/100 leukocytes 2 % 0-10 Automated blood basophils/100 leukocytes 0 % 0-10 Blood neutrophils automated count (number/volume) 5.2 10*3 1.8-7.8 Blood lymphocytes automated count (number/volume) 0.9 10*3 1.0-4.0 Blood monocytes automated count (number/volume) 0. 7 10*3 0.0-1.0 Automated eosinophil count 0.2 10*3/uL 0 .0-0.3 Automated blood basophil count (count/volume) 0.0 10*3/uL 0.0-0.1 Manual blood segmented neutrophils/100 leukocytes 63 % NRG Blood band neutrophils/100 leukocytes 7 % NRG Manual blood lymphocytes/100 leukocytes 16 % NRG Manual eosinophils/100 leukocytes in nose 2 % NRG Manual blood basophils/100 leukocytes 1 % NRG Blood macrocytes detection by light microscopy 2+ NRG Blood hypochromia detection by light microscopy 1+ NRG Manual blood myelocytes/100 leukocytes 1 % NRG Comprehensive metabolic panel - 01/12/20 16:09 Serum or plasma sodium measurement (moles/volume) 127 mmol/L 135-145 Serum or plasma potassium measurement (moles/volume) 5.9 mmol/L 3.6-5.0 Serum or plasma chloride measurement (moles/volume) 83 mmol/L 98-107 Carbon dioxide 37 mmol/L 21-32 Serum or plasma anion gap determination (moles/volume) 7 mmol/L 5-14 Serum or plasma urea nitrogen measurement (mass/volume ) 48 mg/dL 7-18 Serum or plasma creatinine measurement (mass/volume) 1.44 mg/dL 0.60-1.30 Serum or plasma urea nitrogen/creatinine mass ratio 33 NRG Serum or plasma creatinine measurement w ith calculation of estimated glomerular filtration rate 35 NRG Serum or plasma glucose measurement (mass/volume) 105 mg/dL 70-105 Serum or plasma calcium measurement (mass/volume) 9.4 mg/dL 8.5-10.1 Serum or plasma total bilirubin measurement (mass/volu me) 0.2 mg/dL 0.1-1.0 Serum or plasma alkaline phosphatase reshma surement (enzymatic activity/volume) 67 U/L 40-136 Serum or plasma aspartate aminotransfera se measurement (enzymatic activity/volume) 13 U/L 5-34 Serum or plasma alanine aminotransferase measurement (enzymatic activity/volume) 11 U/L 0-55 Serum or plasma protein measurement (mass/volume) 7.1 g/dL 6.4-8.2 Serum or plasma albumin measurement (mass/volume) 3.2 g/dL 3.2-4.5 CALCIUM CORRECTED 10.0 mg/dL 8.5-10.1 TROPONIN I FS - 01/12/20 16:09 TROPONIN I FS < 0.30 <0.30 PROBNP FS - 01/12/20 16:09 PROBNP FS 6024.0 pg/mL <75.0 Complete urinalysis with reflex to cultu re - 01/12/20 17:25 Urine color determination YELLOW NRG Urine clarity determination SL CLOUDY N RG Urine pH measurement by test strip 6.0 5-9 Specific gravity of urine by test strip 1.010 1.016-1.022 Urine protein assay by test strip, semi-quantitative NEGATIVE NEGATIVE Urine glucose detection by automated test strip NE GATIVE NEGATIVE Erythrocytes detection in urine sediment by light micr oscopy 1+ NEGATIVE Urine ketones detection by automated test strip NE GATIVE NEGATIVE Urine nitrite detection by test strip NEGATIVE NEGATIVE Urine total bilirubin detection by test strip NEGA TIVE NEGATIVE Urine urobilinogen measurement by automated test strip (mass/volume) 0.2 mg/dL < = 1.0 Urine leukocyte esterase detection by dipstick 3+ NEGATIVE Automated urine sediment erythrocyte cou nt by microscopy (number/high power field) [HPF] NRG Automated urine sediment leukocyte count by microscopy (number/high power field) [HPF] NRG Bacteria detection in urine sediment by light microsco py FEW NRG Squamous epithelial cells detection in u rine sediment by light microscopy 25-50 NRG Crystals detection in urine sediment by light microsco py NONE NRG Casts detection in urine sediment by light microscopy PRESENT NRG Mucus detection in urine sediment by light microscopy NEGATIVE NRG Complete urinalysis with reflex to culture YES NRG Hyaline casts detection in urine sediment by light lobo roscopy 5-10 NRG Bacterial urine culture - 01/12/20 17:25 Bacterial urine culture NG NRG LIPID PANEL - 02/07/20 10:08 CHOLESTEROL, TOTAL 153 mg/dL <200 HDL CHOLESTEROL 79 mg/dL > OR = 50 TRIGLYCERIDES 65 mg/dL <150 LDL-CHOLESTEROL 60 mg/dL (calc) NRG CHOL/HDLC RATIO 1.9 (calc) <5.0 NON HDL CHOLESTEROL 74 mg/dL (calc) <130 CMP - 02/07/20 10:08 GLUCOSE 94 mg/dL 65-99 UREA NITROGEN (BUN) 39 mg/dL 7-25 CREATININE 1.36 mg/dL 0.60-0.88 eGFR NON-AFR. MACEDONIAN 36 mL/min/1.73m2 > OR = 60 eGFR 41 mL/min/1.73m2 > OR = 60 BUN/CREATININE RATIO 29 (calc) 6-22 SODIUM 134 mmol/L 135-146 POTASSIUM 4.5 mmol/L 3.5-5.3 CHLORIDE 90 mmol/L 98-110 CARBON DIOXIDE 37 mmol/L 20-32 CALCIUM 9.4 mg/dL 8.6-10.4 PROTEIN, TOTAL 7.0 g/dL 6.1-8.1 ALBUMIN 3.2 g/dL 3.6-5.1 GLOBULIN 3.8 g/dL (calc) 1.9-3.7 ALBUMIN/GLOBULIN RATIO 0.8 (calc) 1.0-2. 5 BILIRUBIN, TOTAL 0.4 mg/dL 0.2-1.2 ALKALINE PHOSPHATASE 62 U/L 37-153 AST 12 U/L 10-35 ALT 7 U/L 6-29 CBC - 02/07/20 10:08 WHITE BLOOD CELL COUNT 7.6 Thousand/uL 3 .8-10.8 RED BLOOD CELL COUNT 2.92 Million/uL 3.8 0-5.10 HEMOGLOBIN 9.3 g/dL 11.7-15.5 HEMATOCRIT 28.7 % 35.0-45.0 MCV 98.3 fL 80.0-100.0 MCH 31.8 pg 27.0-33.0 MCHC 32.4 g/dL 32.0-36.0 RDW 12.3 % 11.0-15.0 PLATELET COUNT 248 Thousand/uL 140-400 MPV 9.4 fL 7.5-12.5 ABSOLUTE NEUTROPHILS 5632 cells/uL 1500- 7800 ABSOLUTE LYMPHOCYTES 1170 cells/uL 850-3 900 ABSOLUTE MONOCYTES 585 cells/uL 200-950 ABSOLUTE EOSINOPHILS 182 cells/uL 15-500 ABSOLUTE BASOPHILS 30 cells/uL 0-200 NEUTROPHILS 74.1 % NRG LYMPHOCYTES 15.4 % NRG MONOCYTES 7.7 % NRG EOSINOPHILS 2.4 % NRG BASOPHILS 0.4 % NRG Encounters ACCT No. Visit Date/Time Discharge Status Pt. Type Provider Facility Loc./Unit Complaint [id number] 03/13/2020 10:45:00 03/13/2020 23:59:5 9 [facility] Outpatient [facility] [id number] 02/07/2020 09:00:00 Document Registration [id number] 11/09/2019 10:30:00 Document Registration [id number] 06/29/2019 09:30:00 Document Registration [id number] 03/29/2019 14:15:00 Document Registration [id number] 03/14/2019 15:15:00 Document Registration [id number] 01/16/2019 10:00:00 Document Registration [id number] 10/17/2018 10:15:00 Document Registration [id number] 01/12/2020 15:53:00 20:36:00 DIS Outpatient JOSH ABDUL DO [facility] ER FS RODRIGUE LEG SWELLING; SOB [id number] 12/31/2019 09:48:00 14:10:00 DIS Emergency JASON FLETCHER, DAVID Lam [facility] ER FS SOB [id number] 07/22/2019 06:11:00 10:50:00 DIS Emergency CHRISSY FLETCHER, LORETTA Paredes [facility] ER FS COUGH [id number] 07/14/2019 22:29:00 15:30:00 DIS Inpatient BILLY SOL DO, [facility] 4TH PNA HYPOXIA ACUTE ON CH RONIC RESP FAIL HYPONATREMI [id number] 03/03/2019 10:48:00 16:10:00 DIS Emergency NEIDA FLETCHER, MICHAEL Logan [facility] ER FS SOA
[2020-03-22 20:15] LABS: BASOPHILS % (AUTO) 0 % (0-10); EOSINOPHILS % (AUTO) 3 % (0-10); HEMATOCRIT 32 % (35-52); HEMOGLOBIN 9.9 G/DL (11.5-16.0); LYMPHOCYTES # (AUTO) 1.2 X 10^3 (1.0-4.0); LYMPHOCYTES % (AUTO) 14 % (12-44); MEAN CORPUSCULAR HEMOGLOBIN 32 PG (25-34); MEAN CORPUSCULAR HGB CONC 31 G/DL (32-36); MEAN CORPUSCULAR VOLUME 102 FL (80-99); MEAN PLATELET VOLUME 8.6 FL (7.4-10.4); MONOCYTES % (AUTO) 9 % (0-12); NEUTROPHILS # (AUTO) 6.6 X 10^3 (1.8-7.8); NEUTROPHILS % (AUTO) 74 % (42-75); PLATELET COUNT 367 10^3/uL (130-400); RED CELL DISTRIBUTION WIDTH 14.6 % (10.0-14.5); WHITE BLOOD COUNT 8.8 10^3/uL (4.3-11.0)
[2020-03-22 20:16] LABS: EOSINOPHILS # (AUTO) 0.2 10^3/uL (0.0-0.3); MONOCYTES # (AUTO) 0.8 X 10^3 (0.0-1.0)
[2020-03-22 20:33] LABS: CREATININE SERUM 1.25 MG/DL (0.60-1.30); POTASSIUM 5.7 MMOL/L (3.6-5.0)
[2020-03-22 20:34] LABS: ALBUMIN 3.2 GM/DL (3.2-4.5); BILIRUBIN,TOTAL 0.2 MG/DL (0.1-1.0); TOTAL PROTEIN 7.6 GM/DL (6.4-8.2)
[2020-03-22 20:37] LABS: ABG BASE EXCESS 15.2 MMOL/L (-2.5-2.5); ABG OXYGEN SATURATION 93 % (94-100); ABG PH 7.37 (7.37-7.43); ABG PO2 69 MMHG (79-93); ABG TCO2 46.2 MMOL/L (21.0-31.0)
[2020-03-22 20:40] LABS: ALLENS TEST NEG; PATIENT TEMP 36.2; VENTILATOR NO
[2020-03-22 20:41] LABS: ABG PCO2 76 MMHG (35-45)
--- NOTE | 2020-03-22 20:51 | Diagnostic Imaging Report ---
INDICATION: Shortness of breath. EXAMINATION: Frontal chest was obtained at 8:34 p.m. COMPARISON: 01/12/2020. FINDINGS: There is cardiomegaly again noted. There is central vascular congestion with diffuse bilateral infiltrates which appear unchanged compared to the previous study. There is no pneumothorax or pleural fluid. There are degenerative findings of both shoulders. IMPRESSION: Prominent cardiomegaly again noted with central vascular congestion and edema. There are extensive bilateral infiltrates which are unchanged compared to the previous study. There is no pneumothorax or gross pleural fluid. Dictated by: Dictated on workstation # [id number]
[2020-03-22] MEDS ORDERED: FUROSEMIDE 40 MG/4 ML INJ (LASIX) IVP ONE (21:00)
[2020-03-22] MEDS ORDERED: LEVOFLOXACIN 750 MG/150 ML IV 150 ML IV ONE (21:00)
[2020-03-22 21:42] LABS: BILIRUBIN,URINE NEGATIVE (NEGATIVE); CLARITY,URINE CLEAR; COLOR,URINE YELLOW; GLUCOSE, URINE (UA) NEGATIVE (NEGATIVE); KETONES,URINE NEGATIVE (NEGATIVE); LEUKOCYTE ESTERASE ,URINE 1+ (NEGATIVE); NITRITE,URINE NEGATIVE (NEGATIVE); PH,URINE 5.5 (5-9); PROTEIN,URINE TRACE (NEGATIVE)
[2020-03-22 21:43] LABS: BACTERIA,URINE TRACE /HPF; SQUAMOUS EPITHELIAL CELL,UR 0-2 /HPF
--- NOTE | 2020-03-22 22:12 | ED General ---
General Chief Complaint: Respiratory Problems Stated Complaint: TROUBLE BREATHING Nursing Triage Note: Patient presents to the ER with severe SOB. Patient was seen by her primary care earlier this week and was put on an antibiotic for possible pneumonia. Patient wears 2.5 liters of oxygen at home and was on 5 liters at presentation with an SPO2 of 79%. Patient does have a cough with no fever. Nursing Sepsis Screen: Possible Sepsis Risk Source of Information: Patient History of Present Illness Date Seen by Provider: Mar 22, 2020 Time Seen by Provider: 20:00 Initial Comments Patient is an 84-year-old female who resides at an independent living facility with history of congestive heart failure presents with acute shortness of breath. Patient reports gradual shortness of breath over the past 10 days with recent diagnosis of pneumonia by PCP. Patient is currently on Mucinex and day 8 of an unknown antibiotic. On EMS arrival, the patient O2 saturation was 79% on 5 L of oxygen by nasal cannula. Patient typically wears to half liters at baseline and uses CPAP at night for sleep apnea. She states she typically weighs 151 pounds and monitors it closely. She denies missed medication new medication or recent changes. Denies increased leg pain or swelling. Denies chest pain chest tightness. No fever chills, nausea vomiting or sweats. No abdominal pain. Reports productive cough with clear sputum. Additional history obtained from the patient's daughter, Chelo who is unavailable by phone at . Timing/Duration: 4-6 Hours Severity: Severe Modifying Factors: improves with Other Associated Systoms: Cough, Shortness of Air Allergies and Home Medications Allergies Coded Allergies: Sulfa (Sulfonamide Antibiotics) (Unverified Allergy, Unknown, 09/08/06) amoxicillin (Verified Allergy, Unknown, rash, 03/03/19) azithromycin (Verified Allergy, Unknown, rash, 03/03/19) cephalexin (Verified Allergy, Unknown, rash, pt received Cefepime w/o issue, 07/18/19) clavulanic acid (Verified Allergy, Unknown, rash, 03/03/19) colchicine (Verified Allergy, Unknown, rash, 03/03/19) doxycycline (Verified Adverse Reaction, Unknown, diarrhea, 03/03/19) hydralazine (Verified Adverse Reaction, Unknown, headache, 03/03/19) Uncoded Allergies: CYSTEINE (Allergy, Unknown, itching, 03/03/19) Home Medications Acetaminophen 500 Mg Tablet, 1,000 MG PO Q6H PRN for PAIN-MILD (1-4), (Reported) Albuterol Sulfate 90 Mcg Aer.pow.ba, 2 PUFF IH Q6H, (Reported) Allopurinol 300 Mg Tablet, 150 MG PO HS, (Reported) TAKES 1/2 OF A 300MG TAB TO EQUAL 150MG Apixaban 5 Mg Tablet, 5 MG PO BID, (Reported) Benzonatate 100 Mg Capsule, 200 MG PO TID Prescribed by: BILLY SOL on 07/18/19943 Brimonidine Tartrate/Timolol 5 Ml Drops, 1 DROP OU BID, (Reported) Calcium Carbonate/Vitamin D3 1 Each Tablet, 1 EACH PO DAILY, (Reported) Carvedilol 6.25 Mg Tablet, 6.25 MG PO BID, (Reported) Cefdinir 300 Mg Capsule, 300 MG PO BID Prescribed by: BILLY SOL on 07/18/19943 Fluticasone/Salmeterol 12 Gm Hfa.aer.ad, 2 PUFF IH BID@,20 Prescribed by: BILLY SOL on 07/18/19943 Furosemide 20 Mg Tablet, 20 MG PO DAILY, (Reported) Hydralazine HCl 25 Mg Tablet, 25 MG PO BID, (Reported) Ipratropium/Albuterol Sulfate 3 Ml Ampul.neb, 3 ML NEB Q8H, (Reported) Latanoprost/Pf 7.5 Ml Drops, 1 DROP OU HS, (Reported) ONE DROP BOTH EYES Lisinopril 40 Mg Tablet, 40 MG PO 1800, (Reported) Loratadine 10 Mg Tablet, 10 MG PO DAILY, (Reported) Melatonin 5 Mg Tab.ir.er, 10 MG PO HS, (Reported) TAKES 2 (5MG) TABS Multivitamin with Minerals 1 Each Tablet, 1 EACH PO DAILY, (Reported) [place] 3 Polyunsat Fatty Acids 1,000 Mg Cap, 1,000 MG PO DAILY, (Reported) Pravastatin Sodium 20 Mg Tablet, 20 MG PO HS, (Reported) Prednisone 10 Mg Tab.ds.pk, 10 MG PO DAILY Take 4 tabs(60mg)daily,decrease by 1 tab(10MG)daily. Prescribed by: BILLY SOL on 11/27/19 0944 Promethazine HCl/Codeine 5 Ml Syrup, 5 ML PO Q6H PRN for COUGH, (Reported) PICKED UP 120ML ON 07-12-2019 Trazodone HCl 50 Mg Tablet, 25 MG PO HS PRN for INSOMNIA, (Reported) TAKES 1/2 OF A 50MG TAB TO EQUAL 25MG Patient Home Medication List Home Medication List Reviewed: Yes Review of Systems Review of Systems Constitutional: see HPI EENTM: see HPI Respiratory: see HPI Cardiovascular: see HPI Gastrointestinal: see HPI Genitourinary: see HPI Musculoskeletal: see HPI Skin: see HPI Psychiatric/Neurological: See HPI Hematologic/Lymphatic: See HPI Immunological/Allergic: see HPI Past Emthvrc-Dyldsm-Snevzd Hx Past Med/Social Hx: Reviewed Nursing Past Med/Soc Hx Patient Social History Alcohol Use: Denies Use Recreational Drug Use: No Smoking Status: Never a Smoker 2nd Hand Smoke Exposure: No Recent Foreign Travel: No Contact w/Someone Who Travel: No Recent Infectious Disease Expo: No Recent Hopitalizations: No ([facility] 12/31/19-01/06/20) Physical Abuse: No Sexual Abuse: No Mistreated: No Fear: No Immunizations Up To Date Date of Influenza Vaccine: May 22, 2019 Seasonal Allergies Seasonal Allergies: No Past Medical History Surgeries: Yes Breast, Orthopedic Respiratory: Yes Pneumonia, COPD Cardiac: Yes Hypertension, Irregular Heartbeat Neurological: Yes (brain bleed) Genitourinary: No Renal Failure Gastrointestinal: No Musculoskeletal: Yes Rheumatoid Arthritis Endocrine: No HEENT: No Cancer: No Psychosocial: No Integumentary: No Physical Exam Vital Signs Vital Signs - First Documented 03/22/20 20:00 Temp 37.1 Pulse 94 Resp 28 B/P (MAP) 158/60 (92) Pulse Ox 79 O2 Delivery Nasal Cannula O2 Flow Rate 5.00 Capillary Refill : Less Than 3 Seconds Height, Weight, BMI Height: 5'3.00" Weight: 181lbs. oz. 82.890146cl; 26.00 BMI Method:Stated General Appearance: Anxious, Other Eyes: Bilateral Eye Normal Inspection, Bilateral Eye PERRL, Bilateral Eye EOMI HEENT: Other Neck: Non Tender, JVD Respiratory: Crackles, Decreased Breath Sounds Cardiovascular: Regular Rate, Rhythm, No Edema, Other (trace edema) Gastrointestinal: Non Tender, Soft Back: No CVA Tenderness Neurologic/Psychiatric: Alert, Oriented x3 Skin: Cyanosis Focused Exam Sepsis Stage: Ruled Out Lactate Level 03/22/20 20:05: Lactic Acid Level 0.88 Lactic Acid Level Laboratory Tests Test 03/22/20 20:05 Lactic Acid Level 0.88 MMOL/L (0.50-2.00) Progress/Results/Core Measures Suspected Sepsis Recent Fever Within 48 Hours: No Infection Criteria Present: Suspected New Infection New/Unexplained Altered Menta: No Sepsis Screen: Possible Sepsis Risk SIRS Temperature: Pulse: 94 Respiratory Rate: 28 Laboratory Tests 03/22/20 20:05: White Blood Count 8.8 Blood Pressure 158 /60 Mean: 92 03/22/20 20:05: Lactic Acid Level 0.88 Laboratory Tests 03/22/20 20:05: Creatinine 1.25, Platelet Count 367, Total Bilirubin 0.2 Results/Orders Lab Results Laboratory Tests Test 03/22/20 20:05 03/22/20 20:14 03/22/20 20:25 03/22/20 21:20 Range/Units White Blood Count 8.8 4.3-11.0 10^3/uL Red Blood Count 3.14 L 4.35-5.85 10^6/uL Hemoglobin 9.9 L 11.5-16.0 G/DL Hematocrit 32 L 35-52 % Mean Corpuscular Volume 102 H 80-99 FL Mean Corpuscular Hemoglobin 32 25-34 PG Mean Corpuscular Hemoglobin Concent 31 L 32-36 G/DL Red Cell Distribution Width 14.6 H 10.0-14.5 % Platelet Count 367 130-400 10^3/uL Mean Platelet Volume 8.6 7.4-10.4 FL Neutrophils (%) (Auto) 74 42-75 % Lymphocytes (%) (Auto) 14 12-44 % Monocytes (%) (Auto) 9 0-12 % Eosinophils (%) (Auto) 3 0-10 % Basophils (%) (Auto) 0 0-10 % Neutrophils # (Auto) 6.6 1.8-7.8 X 10^3 Lymphocytes # (Auto) 1.2 1.0-4.0 X 10^3 Monocytes # (Auto) 0.8 0.0-1.0 X 10^3 Eosinophils # (Auto) 0.2 0.0-0.3 10^3/uL Basophils # (Auto) 0.0 0.0-0.1 10^3/uL Sodium Level 127 L 135-145 MMOL/L Potassium Level 5.7 H 3.6-5.0 MMOL/L Chloride Level 88 L 98-107 MMOL/L Carbon Dioxide Level 33 H 21-32 MMOL/L Anion Gap 6 5-14 MMOL/L Blood Urea Nitrogen 45 H 7-18 MG/DL Creatinine 1.25 0.60-1.30 MG/DL Estimat Glomerular Filtration Rate 41 BUN/Creatinine Ratio 36 Glucose Level 113 H 70-105 MG/DL Lactic Acid Level 0.88 0.50-2.00 MMOL/L Calcium Level 10.0 8.5-10.1 MG/DL Corrected Calcium 10.6 H 8.5-10.1 MG/DL Total Bilirubin 0.2 0.1-1.0 MG/DL Aspartate Amino Transf (AST/SGOT) 13 5-34 U/L Alanine Aminotransferase (ALT/SGPT) 7 0-55 U/L Alkaline Phosphatase 59 40-136 U/L Troponin I < 0.30 <0.30 NG/ML Pro-B-Type Natriuretic Peptide 3438.0 H <75.0 PG/ML Total Protein 7.6 6.4-8.2 GM/DL Albumin 3.2 3.2-4.5 GM/DL Blood Gas Puncture Site LEFT WRIST Blood Gas Patient Temperature 36.2 Arterial Blood pH 7.37 7.37-7.43 Arterial Blood Partial Pressure CO2 76 *H 35-45 MMHG Arterial Blood Partial Pressure O2 69 L 79-93 MMHG Arterial Blood HCO3 44 *H 23-27 MMOL/L Arterial Blood Total CO2 46.2 H 21.0-31.0 MMOL/L Arterial Blood Oxygen Saturation 93 L 94-100 % Arterial Blood Base Excess 15.2 H -2.5-2.5 MMOL/L Vitor Test NEG Blood Gas Ventilator Setting NO Blood Gas Inspired Oxygen N/A Urine Color YELLOW Urine Clarity CLEAR Urine pH 5.5 5-9 Urine Specific [place] 1.010 L 1.016-1.022 Urine Protein TRACE H NEGATIVE Urine Glucose (UA) NEGATIVE NEGATIVE Urine Ketones NEGATIVE NEGATIVE Urine Nitrite NEGATIVE NEGATIVE Urine Bilirubin NEGATIVE NEGATIVE Urine Urobilinogen 0.2 < = 1.0 MG/DL Urine Leukocyte Esterase 1+ H NEGATIVE Urine RBC (Auto) TRACE-L NEGATIVE Urine RBC NONE /HPF Urine WBC 5-10 H /HPF Urine Squamous Epithelial Cells 0-2 /HPF Urine Crystals NONE /LPF Urine Bacteria TRACE /HPF Urine Casts PRESENT /LPF Urine Granular Casts 5-10 H /LPF Urine Mucus SMALL H /LPF Urine Culture Indicated YES My Orders Orders - ANSHUL SAL DO Cbc With Automated Diff (03/22/20 20:02) Comprehensive Metabolic Panel (03/22/20 20:02) Arterial Blood Gas (03/22/20 20:02) Lactic Acid Analyzer (03/22/20 20:02) Ekg Tracing (03/22/20 20:02) Ua Culture If Indicated (03/22/20 20:02) Coronavirus Sars-Cov-2 So 2018 (03/22/20 20:02) Bipap (Bilevel) Set Up (03/22/20 20:02) Chest 1 View Ap/Pa Only (03/22/20 20:04) Probnp Fs (03/22/20 20:04) Troponin I Fs (03/22/20 20:04) Furosemide Injection (Lasix Injection) (03/22/20 21:00) Catheter(Urinary) Insert & Ass 03,15 (03/22/20 20:53) Levofloxacin 750 Mg/150 Ml Iv (Levaquin (03/22/20 21:00) Urine Culture (03/22/20 21:20) Medications Given in ED Current Medications Medications Dose Ordered Sig/Mitul Route Start Time Stop Time Status Last Admin Dose Admin Furosemide 40 mg ONCE ONCE IVP 03/22/20 21:00 03/22/20 21:01 DC 03/22/20 21:08 40 MG Levofloxacin/ Dextrose 150 ml @ 100 mls/hr ONCE ONCE IV 03/22/20 21:00 03/22/20 22:29 03/22/20 21:08 100 MLS/HR Vital Signs/I&O 03/22/20 20:00 Temp 37.1 Pulse 94 Resp 28 B/P (MAP) 158/60 (92) Pulse Ox 79 O2 Delivery Nasal Cannula O2 Flow Rate 5.00 Capillary Refill : Less Than 3 Seconds Blood Pressure Mean: 92 Departure Communication (Admissions) Patient stabilized with Lasix, oxygen and BiPAP. Respirations nonlabored, O2 saturations 94% on 3 L. Blood catheter placed with approximately 200 mL's of urine output. Patient accepted to [facility] by Dr. Kim at 22:15 per patient's request. Impression Primary Impression: Acute respiratory failure with hypoxia and hypercapnia Additional Impressions: Acute congestive heart failure COPD exacerbation Hyperkalemia Renal insufficiency Disposition: [facility] Condition: Stable Departure-Patient Inst. Referrals: RIGO PARIKH MD (PCP/Family) Primary Care Physician ANSHUL SAL DO Mar 22, 2020 22:12
[2020-03-22 22:47] VITALS: BP 136/56
== END 2020-03-22 22:47 | disposition short-term general hospital (02) ==
LOC: EDUNIT# 19:46 → ER FS 19:48
DX: J96.02 Acute respiratory failure with hypercapnia (principal); J96.01 Acute respiratory failure with hypoxia; I11.0 Hypertensive heart disease with heart failure; I50.9 Heart failure, unspecified; J18.9 Pneumonia, unspecified organism; J44.1 Chronic obstructive pulmonary disease with (acute) exacerbation; Z99.81 Dependence on supplemental oxygen; M06.9 Rheumatoid arthritis, unspecified; E87.5 Hyperkalemia; N28.9 Disorder of kidney and ureter, unspecified
CPT/HCPCS: 36415; 51702; 71045; 80053; 81000; 82805; 83605; 83880; 84484; 85025; 87088; 99291; U0002; 87635

== ENCOUNTER 2020-05-05 18:58 | Emergency (ER) | payer MEDICARE, OTHER ==
[~2020-05-05] VITALS: Ht 160 cm; Wt 67.1 kg
[2020-05-05] MEDS ORDERED: RT-ALBUTEROL/IPRATROPIUM 3 ML (DUONEB) VIAL INH ONE (19:15)
[2020-05-05] MEDS ORDERED: ACETAMINOPHEN 500 MG TAB (TYLENOL) PO ONE (19:15)
[2020-05-05] MEDS ORDERED: methylPREDNISolone 125 MG (Solu-MEDROL) VIAL IVP ONE (19:15)
--- NOTE | 2020-05-05 19:29 | ED Respiratory ---
General Chief Complaint: Respiratory Problems Stated Complaint: SOA,FLUID IN LUNGS History of Present Illness Date Seen by Provider: May 05, 2020 Time Seen by Provider: 18:30 Initial Comments The patient is an 84-year-old female with a history of hypertension, hyperlipidemia, heart failure with unclear ejection fraction as no recent echocardiograms available for comparison, severe COPD with chronic respiratory failure on 2.5 L of nasal cannula oxygen at all times. 2 weeks ago the patient was transferred to [facility] for exacerbation of heart failure and COPD and was ultimately intubated for 2 days before improving and being released. The patient presents with concern for 3 days of worsening dyspnea with minimal exertion. She states she has gained 3 pounds over that interval as well. She states her lungs feel like they have fluid on them. She denies associated fevers, nausea or vomiting, upper respiratory congestion/rhinorrhea, new productive cough (she admits to a chronic nonproductive cough which is no different than usual today), chest pain of any kind, flank pain, back pain, abdominal pain, dysuria or hematuria, changes in bowel habits. Patient is alert and pleasantly and appropriately interactive and speaking comfortably in full sentences upon initial evaluation here in the emergency department. Vital signs are notable for appropriate oxygenation on her typical 2.5 L of nasal cannula oxygen, although while transferring from the wheelchair to the cart on arrival she desaturated to 85% on her home oxygen. Allergies and Home Medications Allergies Coded Allergies: Sulfa (Sulfonamide Antibiotics) (Unverified Allergy, Unknown, 09/08/06) amoxicillin (Verified Allergy, Unknown, rash, 03/03/19) azithromycin (Verified Allergy, Unknown, rash, 03/03/19) cephalexin (Verified Allergy, Unknown, rash, pt received Cefepime w/o issue, 07/18/19) clavulanic acid (Verified Allergy, Unknown, rash, 03/03/19) colchicine (Verified Allergy, Unknown, rash, 03/03/19) doxycycline (Verified Adverse Reaction, Unknown, diarrhea, 03/03/19) hydralazine (Verified Adverse Reaction, Unknown, headache, 03/03/19) Uncoded Allergies: CYSTEINE (Allergy, Unknown, itching, 03/03/19) Home Medications Acetaminophen 500 Mg Tablet, 1,000 MG PO Q6H PRN for PAIN-MILD (1-4), (Reported) Albuterol Sulfate 90 Mcg Aer.pow.ba, 2 PUFF IH Q6H, (Reported) Allopurinol 300 Mg Tablet, 150 MG PO HS, (Reported) TAKES 1/2 OF A 300MG TAB TO EQUAL 150MG Apixaban 5 Mg Tablet, 5 MG PO BID, (Reported) Benzonatate 100 Mg Capsule, 200 MG PO TID Prescribed by: BILLY SOL on 07/18/19943 Brimonidine Tartrate/Timolol 5 Ml Drops, 1 DROP OU BID, (Reported) Calcium Carbonate/Vitamin D3 1 Each Tablet, 1 EACH PO DAILY, (Reported) Carvedilol 6.25 Mg Tablet, 6.25 MG PO BID, (Reported) Cefdinir 300 Mg Capsule, 300 MG PO BID Prescribed by: BILLY SOL on 07/18/19943 Fluticasone/Salmeterol 12 Gm Hfa.aer.ad, 2 PUFF IH BID@08,20 Prescribed by: BILLY SOL on 07/18/19943 Furosemide 20 Mg Tablet, 20 MG PO DAILY, (Reported) Hydralazine HCl 25 Mg Tablet, 25 MG PO BID, (Reported) Ipratropium/Albuterol Sulfate 3 Ml Ampul.neb, 3 ML NEB Q8H, (Reported) Latanoprost/Pf 7.5 Ml Drops, 1 DROP OU HS, (Reported) ONE DROP BOTH EYES Lisinopril 40 Mg Tablet, 40 MG PO 1800, (Reported) Loratadine 10 Mg Tablet, 10 MG PO DAILY, (Reported) Melatonin 5 Mg Tab.ir.er, 10 MG PO HS, (Reported) TAKES 2 (5MG) TABS Multivitamin with Minerals 1 Each Tablet, 1 EACH PO DAILY, (Reported) Hamilton 3 Polyunsat Fatty Acids 1,000 Mg Cap, 1,000 MG PO DAILY, (Reported) Pravastatin Sodium 20 Mg Tablet, 20 MG PO HS, (Reported) Prednisone 10 Mg Tab.ds.pk, 10 MG PO DAILY Take 4 tabs(60mg)daily,decrease by 1 tab(10MG)daily. Prescribed by: BILLY SOL on 07/18/19943 Promethazine HCl/Codeine 5 Ml Syrup, 5 ML PO Q6H PRN for COUGH, (Reported) PICKED UP 120ML ON 07-12-2019 Trazodone HCl 50 Mg Tablet, 25 MG PO HS PRN for INSOMNIA, (Reported) TAKES 1/2 OF A 50MG TAB TO EQUAL 25MG Patient Home Medication List Home Medication List Reviewed: Yes Review of Systems Review of Systems Constitutional: see HPI All Other Systems Reviewed Negative Unless Noted: Yes (Negative excepted noted.) Past Qpmwpza-Gztabp-Zzoohj Hx Past Med/Social Hx: Reviewed Nursing Past Med/Soc Hx Patient Social History 2nd Hand Smoke Exposure: No Recent Foreign Travel: No Contact w/Someone Who Travel: No Recent Hopitalizations: No ([facility] 12/31/19-01/06/20) Immunizations Up To Date Date of Influenza Vaccine: May 22, 2019 Seasonal Allergies Seasonal Allergies: No Past Medical History Surgeries: Yes Breast, Orthopedic Respiratory: Yes Pneumonia, COPD Cardiac: Yes Hypertension, Irregular Heartbeat Neurological: Yes (brain bleed) Genitourinary: No Renal Failure Gastrointestinal: No Musculoskeletal: Yes Rheumatoid Arthritis Endocrine: No HEENT: No Cancer: No Psychosocial: No Integumentary: No Family Medical History Reviewed Nursing Family Hx Physical Exam Vital Signs - First Documented 05/05/20 19:00 Temp 36.4 Pulse 75 Resp 16 B/P (MAP) 180/76 (110) Pulse Ox 96 O2 Delivery Room Air Capillary Refill : Height: 5'3.00" Weight: 181lbs. oz. [id number]; 26.00 BMI Method:Stated General Appearance: no apparent distress This is an elderly female appearing nontoxic and in no acute distress. Head is normocephalic and atraumatic. Neck is supple and nontender. Oropharynx is moist. Lungs with diminished air movement bilaterally, crackles and wheezes noted to all krishna. There is a normal S1 and S2 without rubs or gallops and capillary refill is appropriate, less than 2 seconds globally. Abdomen is soft, nontender and nondistended. Skin is warm and dry without cyanosis, clubbing or edema. Psychiatrically, the patient him straight appropriate mood and affect and is alert. From a musculoskeletal standpoint, bilateral lower extremities with 1+ pitting edema to the level of the mid shins and below bilaterally. No unilateral edema, no calf tenderness or swelling or erythema appreciated. Bilateral lower extremities with 2+ pulses, equal, warm and well-perfused. Focused Exam Lactate Level 05/05/20 19:45: Lactic Acid Level 0.72 Lactic Acid Level Laboratory Tests Test 05/05/20 19:45 Lactic Acid Level 0.72 MMOL/L (0.50-2.00) Progress/Results/Core Measures Suspected Sepsis SIRS Temperature: Pulse: Respiratory Rate: Laboratory Tests 05/05/20 19:10: White Blood Count 7.7 Blood Pressure / Mean: 05/05/20 19:45: Lactic Acid Level 0.72 Laboratory Tests 05/05/20 19:10: Creatinine 1.00, INR Comment 1.3, Platelet Count 318, Total Bilirubin 0.3 Results/Orders Lab Results Laboratory Tests Test 05/05/20 19:10 05/05/20 19:45 Range/Units White Blood Count 7.7 4.3-11.0 10^3/uL Red Blood Count 2.96 L 4.35-5.85 10^6/uL Hemoglobin 9.7 L 11.5-16.0 G/DL Hematocrit 31 L 35-52 % Mean Corpuscular Volume 105 H 80-99 FL Mean Corpuscular Hemoglobin 33 25-34 PG Mean Corpuscular Hemoglobin Concent 31 L 32-36 G/DL Red Cell Distribution Width 15.2 H 10.0-14.5 % Platelet Count 318 130-400 10^3/uL Mean Platelet Volume 8.9 7.4-10.4 FL Neutrophils (%) (Auto) 74 42-75 % Lymphocytes (%) (Auto) 15 12-44 % Monocytes (%) (Auto) 8 0-12 % Eosinophils (%) (Auto) 3 0-10 % Basophils (%) (Auto) 0 0-10 % Neutrophils # (Auto) 5.7 1.8-7.8 X 10^3 Lymphocytes # (Auto) 1.2 1.0-4.0 X 10^3 Monocytes # (Auto) 0.6 0.0-1.0 X 10^3 Eosinophils # (Auto) 0.2 0.0-0.3 10^3/uL Basophils # (Auto) 0.0 0.0-0.1 10^3/uL Prothrombin Time 16.6 H 12.2-14.7 SEC INR Comment 1.3 0.8-1.4 Activated Partial Thromboplast Time 38 H 24-35 SEC Sodium Level 125 *L 135-145 MMOL/L Potassium Level 5.2 H 3.6-5.0 MMOL/L Chloride Level 82 L 98-107 MMOL/L Carbon Dioxide Level 38 H 21-32 MMOL/L Anion Gap 5 5-14 MMOL/L Blood Urea Nitrogen 28 H 7-18 MG/DL Creatinine 1.00 0.60-1.30 MG/DL Estimat Glomerular Filtration Rate 53 BUN/Creatinine Ratio 28 Glucose Level 120 H 70-105 MG/DL Calcium Level 9.5 8.5-10.1 MG/DL Corrected Calcium 10.1 8.5-10.1 MG/DL Total Bilirubin 0.3 0.1-1.0 MG/DL Aspartate Amino Transf (AST/SGOT) 14 5-34 U/L Alanine Aminotransferase (ALT/SGPT) 6 0-55 U/L Alkaline Phosphatase 66 40-136 U/L Troponin I < 0.30 <0.30 NG/ML C-Reactive Protein 1.86 H <0.50 MG/DL Pro-B-Type Natriuretic Peptide 2686.0 H <75.0 PG/ML Total Protein 7.5 6.4-8.2 GM/DL Albumin 3.2 3.2-4.5 GM/DL Lactic Acid Level 0.72 0.50-2.00 MMOL/L My Orders Orders - VIVIAN CERON MD Cbc With Automated Diff (05/05/20 19:11) Comprehensive Metabolic Panel (05/05/20 19:11) Troponin I Fs (05/05/20 19:11) Ekg Tracing (05/05/20 19:11) Chest 1 View Ap/Pa Only (05/05/20 19:11) Probnp Fs (05/05/20 19:11) Partial Thromboplastin Time (05/05/20 19:) Protime With Inr (05/05/20 19:11) Lactic Acid Analyzer (05/05/20 19:11) Blood Culture (05/05/20 19:11) Crp Fs (05/05/20 19:11) Ferritin (05/05/20 19:11) LDH (05/05/20 19:11) Methylprednisolone Sod Succ (Solu-Medrol (05/05/20 19:15) Albuterol/Ipra Inhalation Soln (Duoneb I (05/05/20 19:15) Svn Small Volume Nebulizer (05/05/20 19:15) Acetaminophen Tablet (Tylenol Tablet) (05/05/20 19:15) Furosemide Injection (Lasix Injection) (05/05/20 19:30) Blood Culture (05/05/20 19:45) Levofloxacin 750 Mg/150 Ml Iv (Levaquin (05/05/20 20:45) Medications Given in ED Current Medications Medications Dose Ordered Sig/Mitul Route Start Time Stop Time Status Last Admin Dose Admin Albuterol/ Ipratropium 3 ml ONCE ONCE INH 05/05/20 19:15 05/05/20 19:17 DC 05/05/20 19:25 3 ML Furosemide 40 mg ONCE ONCE IVP 05/05/20 19:30 05/05/20 19:31 DC 05/05/20 19:25 40 MG Methylprednisolone Sodium Succinate 125 mg ONCE ONCE IVP 05/05/20 19:15 05/05/20 19:16 DC 05/05/20 19:25 125 MG Vital Signs/I&O 05/05/20 19:00 Temp 36.4 Pulse 75 Resp 16 B/P (MAP) 180/76 (110) Pulse Ox 96 O2 Delivery Room Air Capillary Refill : Progress Note : Time: 19:29 Progress Note 84-year-old female recently admitted for heart failure and COPD exacerbation, quite sick 2 weeks ago with a reported intubation at [facility], presents with 3 days of weight gain and dyspnea with minimal exertion concerning for heart failure exacerbation. Wheezing by exam as well. Vital signs generally appropriate here but the patient didn't desaturate with transfer. We will check labs and EKG and chest x-ray and give a dose of Solu-Medrol as well as bronchodilator and will give a dose of parenteral Lasix as well. Plan will be for admission. Patient requests admission at [facility] as this is where she typically goes for her inpatient care. 2000: Workup as above is consistent with fluid overload and the patient clinically is in heart failure exacerbation. May be a superimposed COPD exacerbation as well. She is certainly not as sick as she was 2 weeks ago however given her delicate overall state of health we will need to admit for careful diuresis and further care as indicated. Patient and her daughter have been educated that we have the necessary services to take care of her at [facility] however family continue to request . Contacted transfer center who report that they will not have a bed until at minimum tomorrow morning. We discussed with the patient's daughter to was willing to agree to a [facility] transfer. The patient is therefore graciously accepted in transfer to [facility] for admission and further care by Dr. Nava. Stable for transfer at this time. Diagnostic Imaging Comments CHEST 1 VIEW AP/PA ONLY INDICATION: Shortness of air. TECHNIQUE: Single view chest 7:19 PM. CORRELATION STUDY: 03/22/2020 FINDINGS: Scattered pulmonary and parenchymal densities throughout both lung krishna do persist but overall appear less severe from prior. Heart size, mediastinum, and vasculature are somewhat obscured. Heart size appears generally stable. Likely a component of pulmonary vascular congestion and edema present but again also less severe from prior. Prior surgical changes to the right shoulder with rather markedly advanced degenerative changes of both shoulders. IMPRESSION: 1. Findings do suggest congestive heart failure with scattered pulmonary parenchymal densities throughout both lung krishna. Overall findings however are less severe from prior. Superimposed infiltrate would be difficult to exclude. Dictated by: Dictated on workstation # [id number] Departure Impression Primary Impression: Acute exacerbation of congestive heart failure Qualified Codes: I50.9 - Heart failure, unspecified Additional Impression: COPD exacerbation Disposition: XFER SHT-TRM HOSP Condition: Stable Transfer Transfer Progress Notes Patient and her daughter have been educated that we do have the necessary services to take care of her inpatient at [facility]. They however continue to request an alternate facility, [facility] however does not have any bed capacity this evening so they have agreed to [facility]. We will respect their wishes in this matter. Departure-Patient Inst. Referrals: RIGO PARIKH MD (PCP/Family) Primary Care Physician VIVIAN CERON MD May 05, 2020 19:29
[2020-05-05] MEDS ORDERED: FUROSEMIDE 40 MG/4 ML INJ (LASIX) IVP ONE (19:30)
--- NOTE | 2020-05-05 19:33 | Diagnostic Imaging Report ---
INDICATION: Shortness of air. TECHNIQUE: Single view chest 7:19 PM. CORRELATION STUDY: 03/22/2020 FINDINGS: Scattered pulmonary and parenchymal densities throughout both lung krishna do persist but overall appear less severe from prior. Heart size, mediastinum, and vasculature are somewhat obscured. Heart size appears generally stable. Likely a component of pulmonary vascular congestion and edema present but again also less severe from prior. Prior surgical changes to the right shoulder with rather markedly advanced degenerative changes of both shoulders. IMPRESSION: 1. Findings do suggest congestive heart failure with scattered pulmonary parenchymal densities throughout both lung krishna. Overall findings however are less severe from prior. Superimposed infiltrate would be difficult to exclude. Dictated by: Dictated on workstation # [id number]
[2020-05-05 19:44] LABS: HEMATOCRIT 31 % (35-52); HEMOGLOBIN 9.7 G/DL (11.5-16.0); LYMPHOCYTES % (AUTO) 15 % (12-44); MEAN CORPUSCULAR HEMOGLOBIN 33 PG (25-34); MEAN CORPUSCULAR HGB CONC 31 G/DL (32-36); MEAN CORPUSCULAR VOLUME 105 FL (80-99); MEAN PLATELET VOLUME 8.9 FL (7.4-10.4); NEUTROPHILS % (AUTO) 74 % (42-75); PLATELET COUNT 318 10^3/uL (130-400); WHITE BLOOD COUNT 7.7 10^3/uL (4.3-11.0)
[2020-05-05 19:45] LABS: BASOPHILS % (AUTO) 0 % (0-10); EOSINOPHILS # (AUTO) 0.2 10^3/uL (0.0-0.3); EOSINOPHILS % (AUTO) 3 % (0-10); LYMPHOCYTES # (AUTO) 1.2 X 10^3 (1.0-4.0); MONOCYTES # (AUTO) 0.6 X 10^3 (0.0-1.0); MONOCYTES % (AUTO) 8 % (0-12); NEUTROPHILS # (AUTO) 5.7 X 10^3 (1.8-7.8)
[2020-05-05 19:59] LABS: INR 1.3 (0.8-1.4); PROTHROMBIN TIME PATIENT 16.6 SEC (12.2-14.7)
[2020-05-05 20:20] LABS: ALANINE AMINOTRANSFERASE 6 U/L (0-55); ALBUMIN 3.2 GM/DL (3.2-4.5); ALKALINE PHOSPHATASE 66 U/L (40-136); BILIRUBIN,TOTAL 0.3 MG/DL (0.1-1.0); BUN/CREATININE RATIO 28; CALCIUM 9.5 MG/DL (8.5-10.1); CARBON DIOXIDE 38 MMOL/L (21-32); CHLORIDE 82 MMOL/L (98-107); GFR ESTIMATED 53; GLUCOSE 120 MG/DL (70-105); POTASSIUM 5.2 MMOL/L (3.6-5.0); TOTAL PROTEIN 7.5 GM/DL (6.4-8.2)
[2020-05-05 20:22] LABS: SODIUM 125 MMOL/L (135-145)
[2020-05-05] MEDS ORDERED: LEVOFLOXACIN 750 MG/150 ML IV 150 ML IV ONE (20:45)
--- NOTE | 2020-05-05 21:28 | NUR ---
This RN went into the room to give her IV Levaquin. Patient asked what they were for and this RN educated patient on Levaquin. Patient states she doesn't like Levaquin because it makes her anxious and she can't sleep. Patient refuses Levaquin at this time.
--- NOTE | 2020-05-05 22:34 | NUR ---
This RN called [facility] to see if they were available to transfer her to [facility]. They declined.
--- NOTE | 2020-05-05 22:37 | NUR ---
This RN called [facility] to see if they were available to transfer her to [facility]. They declined.
--- NOTE | 2020-05-05 22:40 | NUR ---
This RN called [facility] to see if they were available to transfer her to [facility]. They declined.
[2020-05-06 01:56] VITALS: BP 180/87
== END 2020-05-06 01:56 | disposition short-term general hospital (02) ==
LOC: EDUNIT# 18:58 → ER FS 19:00
DX: I50.9 Heart failure, unspecified (principal); I11.0 Hypertensive heart disease with heart failure; J44.1 Chronic obstructive pulmonary disease with (acute) exacerbation; Z88.2 Allergy status to sulfonamides; Z88.1 Allergy status to other antibiotic agents; Z88.8 Allergy status to other drugs, medicaments and biological substances; Z79.52 Long term (current) use of systemic steroids; Z79.01 Long term (current) use of anticoagulants
CPT/HCPCS: 36415; 71045; 80053; 82728; 83605; 83615; 83880; 84484; 85025; 85610; 85730; 86141; 87040; 93005

== ENCOUNTER → 2020-06-05 | Outpatient (CLI) | payer MEDICARE, OTHER ==
[2020-06-05 15:30] LABS: CALCIUM 9.4 MG/DL (8.5-10.1); CREATININE SERUM 1.74 MG/DL (0.60-1.30); POTASSIUM 5.1 MMOL/L (3.6-5.0)
== END ==
LOC: LAB FS 14:58
PROVIDERS: ATTEND Family Medicine
DX: I13.0 Hypertensive heart and chronic kidney disease with heart failure and stage 1 through stage 4 chronic kidney disease, or unspecified chronic kidney disease (principal); I50.33 Acute on chronic diastolic (congestive) heart failure; N18.30 Chronic kidney disease, stage 3 unspecified
CPT/HCPCS: 36415; 80048

== ENCOUNTER → 2020-06-16 | Outpatient (CLI) | payer MEDICARE, OTHER ==
[~2020-06-16] MED LIST changes: +CLN.1T PO; -CLON0.1T PO
[2020-06-16 20:54] LABS: POTASSIUM 5.4 MMOL/L (3.6-5.0)
[2020-06-16 20:55] LABS: CALCIUM 9.1 MG/DL (8.5-10.1); CREATININE SERUM 1.21 MG/DL (0.60-1.30)
== END ==
LOC: LAB FS 15:51
PROVIDERS: ATTEND Nurse Practitioner Family
DX: I50.33 Acute on chronic diastolic (congestive) heart failure (principal)
CPT/HCPCS: 36415; 80048

== ENCOUNTER → 2020-06-18 | Emergency (ER) | payer MEDICARE, OTHER ==
[~2020-06-18] VITALS: Ht 160 cm; Wt 68.3 kg
[~2020-06-18] MED LIST changes: +CALCIUM GLUCONATE 10% INJ 4.65 MEQ in NS (IVPB) 50 ML IV STA; +FUROSEMIDE 40 MG/4 ML INJ (LASIX) IVP STA; +SOD POLYSTERENE 15 GM/60 ML (KAYEXALATE) UNIT DOSE PO STA
--- NOTE | 2020-06-18 15:57 | ED Dyspnea ---
General Chief Complaint: Respiratory Problems Stated Complaint: FLUID BUILDUP ON LUNGS Source of Information: Patient History of Present Illness Date Seen by Provider: Jun 18, 2020 Time Seen by Provider: 15:31 Initial Comments 84 yo female presents with complaint of being short of breath and being told that she has fluid build up on her lungs based off lab work. She has history of congestive heart failure and follows with cardiology from [facility]. They recently decreased her Lasix from 80 mg to 40 mg. She had blood work done on the and then again today. When they got the results of today's labs she was told to come to the emergency department. She uses 2-1/2 L/m of supplemental oxygen all the time. She has been coughing for over a month but has not been having any fever or chills. She denies any pain in her chest. She has no nausea or vomiting. She states that she has gained about 5 pounds in the last week. Allergies and Home Medications Allergies Coded Allergies: Sulfa (Sulfonamide Antibiotics) (Unverified Allergy, Unknown, 09/08/06) amoxicillin (Verified Allergy, Unknown, rash, 03/03/19) azithromycin (Verified Allergy, Unknown, rash, 03/03/19) cephalexin (Verified Allergy, Unknown, rash, pt received Cefepime w/o issue, 07/18/19) clavulanic acid (Verified Allergy, Unknown, rash, 03/03/19) colchicine (Verified Allergy, Unknown, rash, 03/03/19) doxycycline (Verified Adverse Reaction, Unknown, diarrhea, 03/03/19) hydralazine (Verified Adverse Reaction, Unknown, headache, 03/03/19) Uncoded Allergies: CYSTEINE (Allergy, Unknown, itching, 03/03/19) Home Medications Acetaminophen 500 Mg Tablet, 1,000 MG PO Q6H PRN for PAIN-MILD (1-4), (Reported) Albuterol Sulfate 90 Mcg Aer.pow.ba, 2 PUFF IH Q6H, (Reported) Allopurinol 300 Mg Tablet, 150 MG PO HS, (Reported) TAKES 1/2 OF A 300MG TAB TO EQUAL 150MG Apixaban 5 Mg Tablet, 5 MG PO BID, (Reported) Benzonatate 100 Mg Capsule, 200 MG PO TID Prescribed by: BILLY SOL on 07/18/19 0919 Brimonidine Tartrate/Timolol 5 Ml Drops, 1 DROP OU BID, (Reported) Calcium Carbonate/Vitamin D3 1 Each Tablet, 1 EACH PO DAILY, (Reported) Carvedilol 6.25 Mg Tablet, 6.25 MG PO BID, (Reported) Cefdinir 300 Mg Capsule, 300 MG PO BID Prescribed by: BILLY SOL on 07/18/19943 Fluticasone/Salmeterol 12 Gm Hfa.aer.ad, 2 PUFF IH BID@ Prescribed by: BILLY SOL on 07/18/19943 Furosemide 20 Mg Tablet, 20 MG PO DAILY, (Reported) Hydralazine HCl 25 Mg Tablet, 25 MG PO BID, (Reported) Ipratropium/Albuterol Sulfate 3 Ml Ampul.neb, 3 ML NEB Q8H, (Reported) Latanoprost/Pf 7.5 Ml Drops, 1 DROP OU HS, (Reported) ONE DROP BOTH EYES Lisinopril 40 Mg Tablet, 40 MG PO 1800, (Reported) Loratadine 10 Mg Tablet, 10 MG PO DAILY, (Reported) Melatonin 5 Mg Tab.ir.er, 10 MG PO HS, (Reported) TAKES 2 (5MG) TABS Multivitamin with Minerals 1 Each Tablet, 1 EACH PO DAILY, (Reported) [place] 3 Polyunsat Fatty Acids 1,000 Mg Cap, 1,000 MG PO DAILY, (Reported) Pravastatin Sodium 20 Mg Tablet, 20 MG PO HS, (Reported) Prednisone 10 Mg Tab.ds.pk, 10 MG PO DAILY Take 4 tabs(60mg)daily,decrease by 1 tab(10MG)daily. Prescribed by: BILLY SOL on 07/18/19943 Promethazine HCl/Codeine 5 Ml Syrup, 5 ML PO Q6H PRN for COUGH, (Reported) PICKED UP 120ML ON 07-12-2019 Trazodone HCl 50 Mg Tablet, 25 MG PO HS PRN for INSOMNIA, (Reported) TAKES 1/2 OF A 50MG TAB TO EQUAL 25MG Patient Home Medication List Home Medication List Reviewed: Yes Review of Systems Review of Systems Constitutional: No chills, No fever; weakness (generalized) EENTM: No eye pain, No epistaxis, No throat swelling Respiratory: see HPI Cardiovascular: No chest pain; edema (chronic) Gastrointestinal: No nausea, No vomiting Genitourinary: no symptoms reported Musculoskeletal: no symptoms reported Skin: no symptoms reported Psychiatric/Neurological: Weakness (generalized) Past Uwhmfyg-Atczgx-Owymrz Hx Past Med/Social Hx: Reviewed Nursing Past Med/Soc Hx Patient Social History Alcohol Use: Denies Use Recreational Drug Use: No Smoking Status: Never a Smoker 2nd Hand Smoke Exposure: No Recent Foreign Travel: No Contact w/Someone Who Travel: No Recent Hopitalizations: No ([facility] [place] 12/31/19-01/06/20) Physical Abuse: No Sexual Abuse: No Mistreated: No Fear: No Immunizations Up To Date Date of Influenza Vaccine: May 22, 2019 Seasonal Allergies Seasonal Allergies: No Past Medical History Surgeries: Yes Breast, Orthopedic Respiratory: Yes Pneumonia, COPD Cardiac: Yes Hypertension, Irregular Heartbeat Neurological: Yes (brain bleed) Genitourinary: No Renal Failure Gastrointestinal: No Musculoskeletal: Yes Rheumatoid Arthritis Endocrine: No HEENT: No Cancer: No Psychosocial: No Integumentary: No Blood Disorders: No Physical Exam Vital Signs Vital Signs - First Documented 06/18/20 15:40 Temp 36.5 Pulse 67 Resp 22 B/P (MAP) 175/81 (112) Pulse Ox 96 O2 Delivery Nasal Cannula O2 Flow Rate 2.50 FiO2 96 Capillary Refill : Height, Weight, BMI Height: 5'3.00" Weight: 181lbs. oz. [id number]; 26.00 BMI Method:Stated General Appearance: Anxious, Chronically ill, Mild Distress HEENT: Pharynx Normal Neck: Non Tender, Supple Respiratory: Chest Non Tender, No Accessory Muscle Use, No Respiratory Distress, Decreased Breath Sounds, Rales (bases) Cardiovascular: Regular Rate, Rhythm, Normal Peripheral Pulses, Systolic Murmur (3/6) Gastrointestinal: Normal Bowel Sounds, No Pulsatile Mass, Non Tender, Soft Extremity: Normal Capillary Refill, Pedal Edema (1+ pitting edema to above her knees) Neurologic/Psychiatric: Alert, Oriented x3 Skin: Normal Color, Warm/Dry Progress/Results/Core Measures Results/Orders Lab Results Laboratory Tests Test 06/18/20 15:44 06/18/20 16:55 Range/Units White Blood Count 7.4 4.3-11.0 10^3/uL Red Blood Count 2.96 L 4.35-5.85 10^6/uL Hemoglobin 9.8 L 11.5-16.0 G/DL Hematocrit 30 L 35-52 % Mean Corpuscular Volume 100 H 80-99 FL Mean Corpuscular Hemoglobin 33 25-34 PG Mean Corpuscular Hemoglobin Concent 33 32-36 G/DL Red Cell Distribution Width 13.2 10.0-14.5 % Platelet Count 320 130-400 10^3/uL Mean Platelet Volume 8.8 7.4-10.4 FL Immature Granulocyte % (Auto) 0 % Neutrophils (%) (Auto) 74 42-75 % Lymphocytes (%) (Auto) 14 12-44 % Monocytes (%) (Auto) 10 0-12 % Eosinophils (%) (Auto) 2 0-10 % Basophils (%) (Auto) 0 0-10 % Neutrophils # (Auto) 5.5 1.8-7.8 X 10^3 Lymphocytes # (Auto) 1.0 1.0-4.0 X 10^3 Monocytes # (Auto) 0.7 0.0-1.0 X 10^3 Eosinophils # (Auto) 0.1 0.0-0.3 10^3/uL Basophils # (Auto) 0.0 0.0-0.1 10^3/uL Immature Granulocyte # (Auto) 0.0 0.0-0.1 10^3/uL Sodium Level 117 *L 135-145 MMOL/L Potassium Level 6.0 H 3.6-5.0 MMOL/L Chloride Level 78 L 98-107 MMOL/L Carbon Dioxide Level 33 H 21-32 MMOL/L Anion Gap 6 5-14 MMOL/L Blood Urea Nitrogen 41 H 7-18 MG/DL Creatinine 1.18 0.60-1.30 MG/DL Estimat Glomerular Filtration Rate 44 BUN/Creatinine Ratio 35 Glucose Level 119 H 70-105 MG/DL Calcium Level 9.3 8.5-10.1 MG/DL Corrected Calcium 9.8 8.5-10.1 MG/DL Magnesium Level 2.0 1.6-2.4 MG/DL Total Bilirubin 0.2 0.1-1.0 MG/DL Aspartate Amino Transf (AST/SGOT) 42 H 5-34 U/L Alanine Aminotransferase (ALT/SGPT) 12 0-55 U/L Alkaline Phosphatase 53 40-136 U/L Troponin I < 0.30 <0.30 NG/ML Pro-B-Type Natriuretic Peptide 2967.0 H <75.0 PG/ML Total Protein 7.5 6.4-8.2 GM/DL Albumin 3.4 3.2-4.5 GM/DL Urine Color YELLOW Urine Clarity CLEAR Urine pH 6.0 5-9 Urine Specific [place] 1.010 L 1.016-1.022 Urine Protein TRACE H NEGATIVE Urine Glucose (UA) NEGATIVE NEGATIVE Urine Ketones NEGATIVE NEGATIVE Urine Nitrite NEGATIVE NEGATIVE Urine Bilirubin NEGATIVE NEGATIVE Urine Urobilinogen 0.2 < = 1.0 MG/DL Urine Leukocyte Esterase 1+ H NEGATIVE Urine RBC (Auto) 2+ H NEGATIVE Urine RBC 2-5 H /HPF Urine WBC 2-5 /HPF Urine Squamous Epithelial Cells 5-10 /HPF Urine Crystals NONE /LPF Urine Bacteria TRACE /HPF Urine Casts NONE /LPF Urine Mucus NEGATIVE /LPF Urine Culture Indicated NO My Orders Orders - KENNEDY BRODY MD Cbc With Automated Diff (06/18/20 15:49) Comprehensive Metabolic Panel (06/18/20 15:49) Chest 1 View Ap/Pa Only (06/18/20 15:49) Magnesium (06/18/20 15:49) Ekg Tracing (06/18/20 15:49) O2 (06/18/20 15:49) Ed Iv/Invasive Line Start (06/18/20 15:49) Monitor-Rhythm Ecg Trace Only (06/18/20 15:49) Probnp Fs (06/18/20 16:37) Troponin I Fs (06/18/20 16:37) Ua Culture If Indicated (06/18/20 17:09) Calcium Gluconate 10% Inj (Calcium Glu (06/18/20 17:10) Furosemide Injection (Lasix Injection) (06/18/20 17:10) Sodium Polystyrene Sulfonate (Kayexalate (06/18/20 17:10) Vital Signs/I&O 06/18/20 06/18/20 06/18/20 15:40 15:40 19:33 Temp 36.5 Pulse 67 69 Resp 22 16 B/P (MAP) 175/81 (112) 151/53 Pulse Ox 96 98 O2 Delivery Nasal Cannula Nasal Cannula Room Air O2 Flow Rate 2.50 2.50 FiO2 96 Progress Progress Note #1: Progress Note check labs, cardiac enzymes, ECG, CXR. Progress Note #2: Time: 16:34 Progress Note labs show stable chronic anemia with Hgb 9.8 without elevated WBC on CBC. CXR d oes show diffuse pulmonary edema and appears a little worse than May 05 when she was last here. ECG appears stable from prior tracings. Call placed to [facility] to see if they want a different treatment here or need her transferred to . I spoke with Miracle Angelo RN, at transfer center. Progress Note #3: Time: 16:54 Progress Note Her Chemistry shows worsened hyponatremia with 117, potassium up to 6.0 now. Cr stable. PERCY Rausch, from [facility] Transfer [facility] called back and pt accepted by Dr. Isabel Vicente for transfer to go to . In terms of the potassium she requested Calcium Gluconate 1 gram, Lasix 60 mg, Kayexalate by mouth. They are tight on beds at but a bed request has been made for the patient and will call back with room assignment as soon as possible. They request to be notified if the patient worsens or seems to need ICU bed as she will be going to a telemetry floor bed at this point. Initial ECG Impression Date: Jun 18, 2020 Initial ECG Impression Time: 15:58 Initial ECG Rate: 67 Initial ECG Rhythm: Normal Sinus Initial ECG Comparisson: Unchanged Comment Sinus arrhythmia with heart rate of 67 bpm. NC interval 197 ms. Left axis deviation. QT interval 407 ms with a QTc interval [address] elevation. Appears similar to prior tracings in the system. Possibly some mild peaking of the T waves in lead II, V5 and V6 Diagnostic Imaging Diagonstic Imaging: Xray Plain Films/CT/US/NM/MRI: chest Comments [facility]. [place], [place] NAME: SHIRLEY HENNING [facility] REC#: [id number] PT STATUS: REG ER : 1935 PHYSICIAN: KENNEDY BRODY MD ADMIT DATE: 06/18/20/ER FS Draft Date of Exam:06/18/20 CHEST 1 VIEW AP/PA ONLY INDICATION: Cough and shortness of breath. TIME OF EXAM: 3:50 PM Correlation is made with prior chest from 05/05/2020. Heart remains enlarged. Congestive changes are identified on today's study. There is patchy airspace infiltrates in the right upper lobe, similar to prior. There appears to be left perihilar and left basilar infiltrate as well, increased since prior. There is no effusion. No pneumothorax is identified. IMPRESSION: Cardiomegaly and congestive changes with bilateral pulmonary infiltrates. This does appear to be increased when compared to examination from one month earlier. Dictated on workstation # [id number] Dict: 06/18/20 1605 Trans: 06/18/20 1607 CV [id number] Interpreted by: VALENTINA PRUITT MD Electronically signed by: Departure Impression Primary Impression: Hyperkalemia Additional Impressions: Hyponatremia Acute exacerbation of congestive heart failure Qualified Codes: I50.9 - Heart failure, unspecified Disposition: XFER SHT-TRM HOSP Condition: Stable Transfer Transfer Reason: Patient preference Time Spoke to Accepting Phy: 16:54 Transfer Progress Notes Discussed with PERCY Rausch, from [facility] transfer Center. She accepted the patient on behalf of Dr. Isabel Vicente for the cardiology service. Dr. Vicente did want the patient to have treatment for her hyperkalemia by giving her calcium gluconate, Lasix and Kayexalate. We will continue to have the patient on a cardiac technologist. Awaiting bed placement at [facility] but Miracle RN, did advise that it may take a while before a room assignment was provided due to the hospital being near capacity and beds being tight. Transfer Facility: [facility] Method of Transfer: EMS Departure-Patient Inst. Referrals: RIGO PARIKH MD (PCP/Family) Primary Care Physician KENNEYD BRODY MD Jun 18, 2020 15:57
[2020-06-18 16:03] LABS: BASOPHILS % (AUTO) 0 % (0-10); EOSINOPHILS # (AUTO) 0.1 10^3/uL (0.0-0.3); EOSINOPHILS % (AUTO) 2 % (0-10); HEMATOCRIT 30 % (35-52); HEMOGLOBIN 9.8 G/DL (11.5-16.0); LYMPHOCYTES % (AUTO) 14 % (12-44); MEAN CORPUSCULAR HEMOGLOBIN 33 PG (25-34); MEAN CORPUSCULAR HGB CONC 33 G/DL (32-36); MEAN CORPUSCULAR VOLUME 100 FL (80-99); MEAN PLATELET VOLUME 8.8 FL (7.4-10.4); MONOCYTES # (AUTO) 0.7 X 10^3 (0.0-1.0); MONOCYTES % (AUTO) 10 % (0-12); NEUTROPHILS # (AUTO) 5.5 X 10^3 (1.8-7.8); NEUTROPHILS % (AUTO) 74 % (42-75); PLATELET COUNT 320 10^3/uL (130-400); WHITE BLOOD COUNT 7.4 10^3/uL (4.3-11.0)
--- NOTE | 2020-06-18 16:07 | Diagnostic Imaging Report ---
INDICATION: Cough and shortness of breath. TIME OF EXAM: 3:50 PM Correlation is made with prior chest from 05/05/2020. Heart remains enlarged. Congestive changes are identified on today's study. There is patchy airspace infiltrates in the right upper lobe, similar to prior. There appears to be left perihilar and left basilar infiltrate as well, increased since prior. There is no effusion. No pneumothorax is identified. IMPRESSION: Cardiomegaly and congestive changes with bilateral pulmonary infiltrates. This does appear to be increased when compared to examination from one month earlier. Dictated on workstation # [id number]
[2020-06-18 16:43] LABS: ALBUMIN 3.4 GM/DL (3.2-4.5); BILIRUBIN,TOTAL 0.2 MG/DL (0.1-1.0); CALCIUM 9.3 MG/DL (8.5-10.1); CREATININE SERUM 1.18 MG/DL (0.60-1.30); TOTAL PROTEIN 7.5 GM/DL (6.4-8.2)
[2020-06-18 17:19] LABS: CLARITY,URINE CLEAR; COLOR,URINE YELLOW; GLUCOSE, URINE (UA) NEGATIVE (NEGATIVE); PROTEIN,URINE TRACE (NEGATIVE)
[2020-06-18 17:20] LABS: BACTERIA,URINE TRACE /HPF; BILIRUBIN,URINE NEGATIVE (NEGATIVE); KETONES,URINE NEGATIVE (NEGATIVE); LEUKOCYTE ESTERASE ,URINE 1+ (NEGATIVE); NITRITE,URINE NEGATIVE (NEGATIVE)
--- NOTE | 2020-06-18 19:30 | NUR ---
ems here report and care given
[2020-06-18 19:33] VITALS: BP 151/53
== END ==
LOC: EDUNIT# 15:29 → ER FS 15:30
DX: I11.0 Hypertensive heart disease with heart failure (principal); I50.9 Heart failure, unspecified; E87.1 Hypo-osmolality and hyponatremia; E87.5 Hyperkalemia; J44.9 Chronic obstructive pulmonary disease, unspecified; Z99.81 Dependence on supplemental oxygen; Z88.1 Allergy status to other antibiotic agents; Z88.2 Allergy status to sulfonamides; Z88.8 Allergy status to other drugs, medicaments and biological substances; Z79.01 Long term (current) use of anticoagulants; Z79.51 Long term (current) use of inhaled steroids; Z87.01 Personal history of pneumonia (recurrent)
CPT/HCPCS: 36415; 71045; 80053; 81000; 83735; 83880; 84484; 85025; 93005; 93041

== ENCOUNTER → 2020-06-18 | Outpatient (CLI) | payer MEDICARE, OTHER ==
[~2020-06-18] MED LIST changes: -CALCIUM GLUCONATE 10% INJ 4.65 MEQ in NS (IVPB) 50 ML IV STA; -FUROSEMIDE 40 MG/4 ML INJ (LASIX) IVP STA; -SOD POLYSTERENE 15 GM/60 ML (KAYEXALATE) UNIT DOSE PO STA
[2020-06-18 13:00] LABS: CREATININE SERUM 1.15 MG/DL (0.60-1.30); POTASSIUM 5.7 MMOL/L (3.6-5.0)
[2020-06-18 13:01] LABS: CALCIUM 9.5 MG/DL (8.5-10.1)
== END ==
LOC: LAB FS 11:51
PROVIDERS: ATTEND Internal Medicine Cardiovascular Disease
DX: I50.33 Acute on chronic diastolic (congestive) heart failure (principal)
CPT/HCPCS: 36415; 80048

== ENCOUNTER 2020-07-21 13:44 | Emergency (ER) | payer MEDICARE, OTHER ==
[~2020-07-21] VITALS: Ht 160 cm; Wt 68.3 kg
--- NOTE | 2020-07-21 13:52 | ED Fall/Injury ---
General Stated Complaint: FALL History of Present Illness Date Seen by Provider: Jul 21, 2020 Time Seen by Provider: 13:50 Initial Comments 85-year-old female presents following a fall. Patient reports that she fell this morning. Patient's fall was around 8 or 9 this morning. Patient reports that she was going to her closet which is linoleum. That she was bending down to adjust her oxygen concentrator when she slipped and fell. Patient reports that she hit her head. No loss of consciousness. Patient complains of pain in her right leg and hip. Patient has skin tears on her bilateral elbows and her l right hand. Patient is on blood thinners. Allergies and Home Medications Allergies Coded Allergies: Sulfa (Sulfonamide Antibiotics) (Unverified Allergy, Unknown, 09/08/06) amoxicillin (Verified Allergy, Unknown, rash, 03/03/19) azithromycin (Verified Allergy, Unknown, rash, 03/03/19) cephalexin (Verified Allergy, Unknown, rash, pt received Cefepime w/o issue, 07/18/19) clavulanic acid (Verified Allergy, Unknown, rash, 03/03/19) colchicine (Verified Allergy, Unknown, rash, 03/03/19) doxycycline (Verified Adverse Reaction, Unknown, diarrhea, 03/03/19) hydralazine (Verified Adverse Reaction, Unknown, headache, 03/03/19) Uncoded Allergies: CYSTEINE (Allergy, Unknown, itching, 03/03/19) Home Medications Acetaminophen 500 Mg Tablet, 1,000 MG PO Q6H PRN for PAIN-MILD (1-4), (Reported) Albuterol Sulfate 90 Mcg Aer.pow.ba, 2 PUFF IH Q6H, (Reported) Allopurinol 300 Mg Tablet, 150 MG PO HS, (Reported) TAKES 1/2 OF A 300MG TAB TO EQUAL 150MG Apixaban 5 Mg Tablet, 5 MG PO BID, (Reported) Benzonatate 100 Mg Capsule, 200 MG PO TID Prescribed by: BILLY SOL on 07/18/19 0944 Brimonidine Tartrate/Timolol 5 Ml Drops, 1 DROP OU BID, (Reported) Calcium Carbonate/Vitamin D3 1 Each Tablet, 1 EACH PO DAILY, (Reported) Carvedilol 6.25 Mg Tablet, 6.25 MG PO BID, (Reported) Cefdinir 300 Mg Capsule, 300 MG PO BID Prescribed by: BILLY SOL on 07/18/19 09 Fluticasone/Salmeterol 12 Gm Hfa.aer.ad, 2 PUFF IH BID@ Prescribed by: BILLY SOL on 07/18/19943 Furosemide 20 Mg Tablet, 20 MG PO DAILY, (Reported) Hydralazine HCl 25 Mg Tablet, 25 MG PO BID, (Reported) Ipratropium/Albuterol Sulfate 3 Ml Ampul.neb, 3 ML NEB Q8H, (Reported) Latanoprost/Pf 7.5 Ml Drops, 1 DROP OU HS, (Reported) ONE DROP BOTH EYES Lisinopril 40 Mg Tablet, 40 MG PO 1800, (Reported) Loratadine 10 Mg Tablet, 10 MG PO DAILY, (Reported) Melatonin 5 Mg Tab.ir.er, 10 MG PO HS, (Reported) TAKES 2 (5MG) TABS Multivitamin with Minerals 1 Each Tablet, 1 EACH PO DAILY, (Reported) [place] 3 Polyunsat Fatty Acids 1,000 Mg Cap, 1,000 MG PO DAILY, (Reported) Pravastatin Sodium 20 Mg Tablet, 20 MG PO HS, (Reported) Prednisone 10 Mg Tab.ds.pk, 10 MG PO DAILY Take 4 tabs(60mg)daily,decrease by 1 tab(10MG)daily. Prescribed by: BILLY SOL on 07/18/19943 Promethazine HCl/Codeine 5 Ml Syrup, 5 ML PO Q6H PRN for COUGH, (Reported) PICKED UP 120ML ON 07-12-2019 Trazodone HCl 50 Mg Tablet, 25 MG PO HS PRN for INSOMNIA, (Reported) TAKES 1/2 OF A 50MG TAB TO EQUAL 25MG Patient Home Medication List Home Medication List Reviewed: Yes Review of Systems Review of Systems Constitutional: No chills, No fever Eyes: No Symptoms Reported Ears, Nose, Mouth, Throat: see HPI Respiratory: no symptoms reported Cardiovascular: no symptoms reported Gastrointestinal: no symptoms reported Genitourinary: no symptoms reported Musculoskeletal: see HPI Skin: see HPI Psychiatric/Neurological: No Symptoms Reported Past Csadbyb-Jiqopn-Ntxxib Hx Past Med/Social Hx: Reviewed Nursing Past Med/Soc Hx Patient Social History 2nd Hand Smoke Exposure: No Recent Hopitalizations: No ([facility] 12/31/19-5/17/20) Immunizations Up To Date Date of Influenza Vaccine: May 22, 2019 Seasonal Allergies Seasonal Allergies: No Past Medical History Surgeries: Yes Breast, Orthopedic Respiratory: Yes Pneumonia, COPD Cardiac: Yes Hypertension, Irregular Heartbeat Neurological: Yes (brain bleed) Genitourinary: No Renal Failure Gastrointestinal: No Musculoskeletal: Yes Rheumatoid Arthritis Endocrine: No HEENT: No Cancer: No Psychosocial: No Integumentary: No Blood Disorders: No Physical Exam Vital Signs Capillary Refill : Height, Weight, BMI Height: 5'3.00" Weight: 181lbs. oz. 82.691703tf; 26.00 BMI Method:Stated General Appearance: no apparent distress HEENT: PERRL/EOMI Neck: full range of motion, supple Cardiovascular: normal peripheral pulses, regular rate, rhythm Respiratory: normal breath sounds, no respiratory distress, no accessory muscle use Gastrointestinal: non tender, soft Extremities: other (tender to palpation right upper leg, full range of motion, mild swelling/contusion) Neurologic/Psychiatric: no motor/sensory deficits, alert, normal mood/affect, oriented x 3 Skin: other (skin tear on bilateral elbows, right hand) Progress/Results/Core Measures Results/Orders Lab Results Laboratory Tests Test 07/21/20 14:35 Range/Units White Blood Count 17.7 H 4.3-11.0 10^3/uL Red Blood Count 2.92 L 4.35-5.85 10^6/uL Hemoglobin 9.7 L 11.5-16.0 G/DL Hematocrit 29 L 35-52 % Mean Corpuscular Volume 99 80-99 FL Mean Corpuscular Hemoglobin 33 25-34 PG Mean Corpuscular Hemoglobin Concent 34 32-36 G/DL Red Cell Distribution Width 12.4 10.0-14.5 % Platelet Count 273 130-400 10^3/uL Mean Platelet Volume 8.7 7.4-10.4 FL Immature Granulocyte % (Auto) 1 % Neutrophils (%) (Auto) 90 H 42-75 % Lymphocytes (%) (Auto) 4 L 12-44 % Monocytes (%) (Auto) 5 0-12 % Eosinophils (%) (Auto) 0 0-10 % Basophils (%) (Auto) 0 0-10 % Neutrophils # (Auto) 15.9 H 1.8-7.8 X 10^3 Lymphocytes # (Auto) 0.7 L 1.0-4.0 X 10^3 Monocytes # (Auto) 1.0 0.0-1.0 X 10^3 Eosinophils # (Auto) 0.0 0.0-0.3 10^3/uL Basophils # (Auto) 0.0 0.0-0.1 10^3/uL Immature Granulocyte # (Auto) 0.1 0.0-0.1 10^3/uL Neutrophils % (Manual) 88 % Lymphocytes % (Manual) 5 % Monocytes % (Manual) 4 % Eosinophils % (Manual) 0 % Basophils % (Manual) 0 % Band Neutrophils 3 % Prothrombin Time 16.4 H 12.2-14.7 SEC INR Comment 1.3 0.8-1.4 Activated Partial Thromboplast Time 34 24-35 SEC Sodium Level 116 *L 135-145 MMOL/L Potassium Level 4.8 3.6-5.0 MMOL/L Chloride Level 73 L 98-107 MMOL/L Carbon Dioxide Level 37 H 21-32 MMOL/L Anion Gap 6 5-14 MMOL/L Blood Urea Nitrogen 34 H 7-18 MG/DL Creatinine 1.04 0.60-1.30 MG/DL Estimat Glomerular Filtration Rate 50 BUN/Creatinine Ratio 33 Glucose Level 113 H 70-105 MG/DL Calcium Level 9.2 8.5-10.1 MG/DL Corrected Calcium 9.6 8.5-10.1 MG/DL Total Bilirubin 0.5 0.1-1.0 MG/DL Aspartate Amino Transf (AST/SGOT) 29 5-34 U/L Alanine Aminotransferase (ALT/SGPT) 13 0-55 U/L Alkaline Phosphatase 66 40-136 U/L Total Protein 7.2 6.4-8.2 GM/DL Albumin 3.5 3.2-4.5 GM/DL My Orders Orders - SAINZ,LORRAINE L DO Ct Head Wo (07/21/20 13:52) Chest 1 View Ap/Pa Only (07/21/20 13:52) Femur 2 View Right (07/21/20 13:52) Tetanus/Diphtheria Inj (Adult) (Tenivac (07/21/20 14:00) Cbc With Automated Diff (07/21/20 13:52) Comprehensive Metabolic Panel (07/21/20 13:52) Protime With Inr (07/21/20 13:52) Partial Thromboplastin Time (07/21/20 13:52) Manual Differential (07/21/20 14:35) Ua Culture If Indicated (07/21/20 15:06) Medications Given in ED Current Medications Medications Dose Ordered Sig/Mitul Route Start Time Stop Time Status Last Admin Dose Admin Tetanus/ Diphtheria Toxoids 0.5 ml ONCE ONCE IM 07/21/20 14:00 07/21/20 14:01 DC 07/21/20 14:49 0.5 ML Progress Progress Note : Time: 15:36 Progress Note Patient with no significant acute findings on radiology. Patient does have a low sodium of 116. Patient has chronic low sodium however this is significantly lower than her baseline. Patient to be transferred in [facility] for further treatment. Discussed with Dr. Sol who graciously accepted patient Diagnostic Imaging Diagonstic Imaging: Xray, CT Plain Films/CT/US/NM/MRI: chest, leg, head Comments no acute fracture or finding right femur, chest xray [facility] [place] NAME: [facility]AD[facility]IRLEY [facility] REC#: [id number] PT STATUS: REG ER : 1935 PHYSICIAN: LORRAINE SAINZ DO ADMIT DATE: 07/21/20/ER FS Draft Date of Exam:07/21/20 CT HEAD WO PROCEDURE: CT head without contrast. TECHNIQUE: Multiple contiguous axial images were obtained through the brain without the use of intravenous contrast. Auto Exposure Controls were utilized during the CT exam to meet ALARA standards for radiation dose reduction. INDICATION: Fall. COMPARISON: None. FINDINGS: Examination is limited by motion. No intracranial hemorrhage, mass effect, hydrocephalus or extra-axial fluid collections. No CT evidence for territorial infarction. Scalp hematoma overlying the parieto-occipital convexity near the midline. Osseous structures are intact. Paranasal sinuses and mastoids are unremarkable. IMPRESSION: 1. Large scalp hematoma/contusion overlying the parieto-occipital convexity. No underlying fractures. 2. No acute intracranial CT findings. Dictated on workstation # [id number] Dict: 07/21/20 1438 Trans: 07/21/20 1443 [facility] [id number] Interpreted by: CÉSAR HEDRICK MD Electronically signed by: Reviewed: Reviewed by Me, Reviewed/Discussed Departure Impression Primary Impression: Hyponatremia Additional Impressions: Fall Qualified Codes: W19.XXXA - Unspecified fall, initial encounter Scalp contusion Qualified Codes: S00.03XA - Contusion of scalp, initial encounter Skin tear Disposition: 02 XFER SHT-TRM HOSP Condition: Stable Transfer Transfer Reason: Diversion Time Spoke to Accepting Phy: 15:30 Transfer Facility: [facility] Method of Transfer: EMS Departure-Patient Inst. Referrals: SELF,JUNIOR FLETCHER (PCP/Family) Primary Care Physician LORRAINE SAINZ DO Jul 21, 2020 13:52
[2020-07-21] MEDS ORDERED: TETANUS & DIPHTHERIA TOX,ADULT 0.5 ML (TENIVAC) IM ONE (14:00)
--- NOTE | 2020-07-21 14:40 | Diagnostic Imaging Report ---
HISTORY: Fall. COMPARISON: 06/18/2020. TECHNIQUE: Frontal view of the chest. FINDINGS: There are heterogeneous pulmonary opacities in the lungs bilaterally, most pronounced in the right upper lobe and left lower lung. No pleural effusion or pneumothorax is seen. The cardiac silhouette is normal in size. There is aortic atherosclerosis. There are marked degenerative changes in the shoulders bilaterally. There are degenerative changes throughout the spine. A gambling monitor is noted. IMPRESSION: 1. Chronic heterogeneous opacities in the bilateral lungs appear unchanged compared to the prior exam. Dictated by: Dictated on workstation # [id number]
--- NOTE | 2020-07-21 14:44 | Diagnostic Imaging Report ---
PROCEDURE: CT head without contrast. TECHNIQUE: Multiple contiguous axial images were obtained through the brain without the use of intravenous contrast. Auto Exposure Controls were utilized during the CT exam to meet ALARA standards for radiation dose reduction. INDICATION: Fall. COMPARISON: None. FINDINGS: Examination is limited by motion. No intracranial hemorrhage, mass effect, hydrocephalus or extra-axial fluid collections. No CT evidence for territorial infarction. Scalp hematoma overlying the parieto-occipital convexity near the midline. Osseous structures are intact. Paranasal sinuses and mastoids are unremarkable. IMPRESSION: 1. Large scalp hematoma/contusion overlying the parieto-occipital convexity. No underlying fractures. 2. No acute intracranial CT findings. Dictated by: Dictated on workstation # [id number]
[2020-07-21 14:52] LABS: BASOPHILS % (AUTO) 0 % (0-10); EOSINOPHILS % (AUTO) 0 % (0-10); HEMATOCRIT 29 % (35-52); HEMOGLOBIN 9.7 G/DL (11.5-16.0); LYMPHOCYTES # (AUTO) 0.7 X 10^3 (1.0-4.0); LYMPHOCYTES % (AUTO) 4 % (12-44); MEAN CORPUSCULAR HEMOGLOBIN 33 PG (25-34); MEAN CORPUSCULAR HGB CONC 34 G/DL (32-36); MEAN CORPUSCULAR VOLUME 99 FL (80-99); MEAN PLATELET VOLUME 8.7 FL (7.4-10.4); MONOCYTES % (AUTO) 5 % (0-12); NEUTROPHILS # (AUTO) 15.9 X 10^3 (1.8-7.8); NEUTROPHILS % (AUTO) 90 % (42-75); PLATELET COUNT 273 10^3/uL (130-400); WHITE BLOOD COUNT 17.7 10^3/uL (4.3-11.0)
--- NOTE | 2020-07-21 14:59 | Diagnostic Imaging Report ---
HISTORY: Fall, right femur pain. TECHNIQUE: 2 views of the right femur. COMPARISON: None FINDINGS: There is diffuse osteopenia. The femoral head is well-seated in the acetabulum on the right. No acute fracture is seen. There are advanced degenerative changes in the right knee and moderate degenerative change in the right hip joint. There is marked soft tissue swelling at the lateral distal right thigh. There is calcific atherosclerosis. IMPRESSION: 1. Degenerative changes in the right hip and right knee with no acute fracture seen in the right femur. 2. Marked soft tissue swelling at the lateral distal right thigh. Dictated by: Dictated on workstation # [id number]
[2020-07-21 15:03] LABS: BILIRUBIN,TOTAL 0.5 MG/DL (0.1-1.0); CALCIUM 9.2 MG/DL (8.5-10.1); CREATININE SERUM 1.04 MG/DL (0.60-1.30); POTASSIUM 4.8 MMOL/L (3.6-5.0)
[2020-07-21 15:04] LABS: ALBUMIN 3.5 GM/DL (3.2-4.5); TOTAL PROTEIN 7.2 GM/DL (6.4-8.2)
[2020-07-21 15:06] LABS: INR 1.3 (0.8-1.4); PROTHROMBIN TIME PATIENT 16.4 SEC (12.2-14.7)
[2020-07-21 15:14] LABS: BAND NEUTROPHILS 3 %; BASOPHILS % (MANUAL) 0 %; EOSINOPHILS % (MANUAL) 0 %; LYMPHOCYTES % (MANUAL) 5 %; MONOCYTES % (MANUAL) 4 %; NEUTROPHILS % (MANUAL) 88 %
--- NOTE | 2020-07-21 15:40 | NUR ---
Detailed lengthy conversation with leslie Hernandez, to update. Pt is to be admitted for low sodium as the falls found no fractures. The family always along with patient has specific requests for all major hospitals in [facility] like [facility] and [facility]. Dr Culp has made phone calls and not finding bed availability at any and has acceptance with Dr Koehler at [facility]. [facility] is aware the options are just not there.
[2020-07-21 15:41] LABS: BACTERIA,URINE TRACE /HPF; BILIRUBIN,URINE NEGATIVE (NEGATIVE); CLARITY,URINE CLEAR; COLOR,URINE YELLOW; GLUCOSE, URINE (UA) NEGATIVE (NEGATIVE); KETONES,URINE NEGATIVE (NEGATIVE); LEUKOCYTE ESTERASE ,URINE NEGATIVE (NEGATIVE); NITRITE,URINE NEGATIVE (NEGATIVE); PH,URINE 7.5 (5-9); PROTEIN,URINE 2+ (NEGATIVE); RBC,URINE 0-2 /HPF
--- NOTE | 2020-07-21 15:55 | NUR ---
At conclusion of call, I have addressed to patient's dgt, the patient may need to be social service consult for appropriate level of care discharge placement other than Independent Living at [facility].
--- NOTE | 2020-07-21 16:45 | NUR ---
Report to Bárbara GREER at [facility].
[2020-07-21 17:40] VITALS: BP 113/80
--- NOTE | 2020-07-21 17:40 | NUR ---
Pt discharged at this time to [facility] at this time with numerous personal belongings brought in by dgt including CPAP equipment, wheeled walker, and extra clothing.
== END 2020-07-21 17:40 | disposition short-term general hospital (02) ==
LOC: EDUNIT# 13:44 → ER FS 13:45
DX: S51.012A Laceration without foreign body of left elbow, initial encounter (principal); S51.011A Laceration without foreign body of right elbow, initial encounter; S61.411A Laceration without foreign body of right hand, initial encounter; S00.03XA Contusion of scalp, initial encounter; E87.1 Hypo-osmolality and hyponatremia; I10 Essential (primary) hypertension; J44.9 Chronic obstructive pulmonary disease, unspecified; Z23 Encounter for immunization; Z88.2 Allergy status to sulfonamides; Z88.1 Allergy status to other antibiotic agents; Z88.8 Allergy status to other drugs, medicaments and biological substances; Z79.01 Long term (current) use of anticoagulants; Z79.52 Long term (current) use of systemic steroids; W01.0XXA Fall on same level from slipping, tripping and stumbling without subsequent striking against object, initial encounter
CPT/HCPCS: 36415; 70450; 71045; 73552; 80053; 81000; 85007; 85027; 85610; 85730; 90714